=== PATIENT | male | born 1940 | race Hispanic/Latino ===

== ENCOUNTER 2016-11-22 09:06 | Day surgery (SDC) | payer MEDICARE ==
[2016-11-22 07:11] VITALS: BMI 25.0
[2016-11-22] MEDS ORDERED: Propofol 10 mg/ml Inj (20 ML) ONE (09:38)
[2016-11-22] MEDS ORDERED: Sodium Chloride 0.9% 1,000 ML IV SCH (10:15)
[2016-11-22 11:19] VITALS: BP 132/76; PULSE 68; RESP 16; TEMP 98.4; O2SAT 98
== END 2016-11-22 11:53 | disposition home or self-care (01) ==
LOC: ENDO 09:06
PROVIDERS: ATTEND Internal Medicine Gastroenterology
DX: K51.90 Ulcerative colitis, unspecified, without complications (principal); K64.1 Second degree hemorrhoids
CPT/HCPCS: 45331; 88305; J2704; J7040 ×2

== ENCOUNTER 2017-01-14 01:45 | Inpatient (IN) | payer MEDICARE ==
[2017-01-14 01:46] VITALS: BMI 25.3
--- NOTE | 2017-01-14 02:25 | ED PDOC ---
Arrival/HPI <Kary Higgins - Last Filed: 01/14/17 05:04> <Miky Morris - Last Filed: 01/14/17 05:35> - General Chief Complaint: GI Problem Time Seen by Provider: 01/14/17 01:57 - History of Present Illness Narrative History of Present Illness (Text): 01/14/17 02:24 76 year old M w/ Past medical history of UC, COPD, and Melenoma presents to the emergency depart complaining of LLQ and rectal pain. Pt is currently being treated w/ Remicade for UC flare [id number]. Rectal pain has been worsening and spread to pt's LLQ/low back this evening. Pt reports rectal spams w/ fecal incontinence. Last voluntary BM was 3-4days ago. Pt also reports urinary urgency , frequency, and hesitancy. Pt was prescribed Flomax by Dr. Mcrea last week for urinary retention and hesitancy. Pt sees Dr. Lu for his UC treatment. Last scope was sigmoidoscopy ~3mon ago. Pt reports 10lb weight loss over the last month. (Kary Higgins) Past Medical History - Provider Review Nursing Documentation Reviewed: Yes - Infectious Disease Hx of Infectious Diseases: None - Tetanus Immunization Tetanus Immunization: Unknown - Cardiac Hx Pacemaker: No - Pulmonary Hx Chronic Obstructive Pulmonary Disease (COPD): Yes - Neurological Hx Paralysis: No - HEENT Hx HEENT Disorder: (WEARS RX GLASSES) Hx Cataracts: Yes (RIGHT EYE) Hx Macular Degeneration: Yes (BOTH EYES) - Renal Hx Renal Disorder: No - Endocrine/Metabolic Hx Endocrine Disorders: No - Hematological/Oncological Hx Blood Transfusions: No Hx Blood Transfusion Reaction: No - Integumentary Hx Dermatological Disorder: Yes Hx Melanoma: Yes (SKIN CANCER ON THE NOSE 2013) - Musculoskeletal/Rheumatological Hx Musculoskeletal Disorders: Yes - Gastrointestinal Hx Vomiting: Yes Other/Comment: ulcerative colitis - Genitourinary/Gynecological Hx Genitourinary Disorders: Yes (URINARY RETENTION) Hx Hematuria: Yes Hx Prostate Problems: Yes (HX LESSER SURGERY DUE TO PROSTATIC ENLARGEMENT) - Psychiatric Hx Emotional Abuse: No Hx Physical Abuse: No Hx Substance Use: No - Surgical History Hx Musculoskeletal Surgery: Yes (ORTHOSCOPIC SURGERY RIGHT SHOULDER 2015) - Anesthesia Hx Anesthesia Reactions: Yes (NAUSEA/VOMITING) Hx Malignant Hyperthermia: No - Suicidal Assessment Feels Threatened In Home Enviroment: No <Kary Higgins - Last Filed: 01/14/17 05:04> Family/Social History Family/Social History: No Known Family HX Smoking Status: Never Smoked Hx Alcohol Use: No Hx Substance Use: No Hx Substance Use Treatment: No <Kary Higgins - Last Filed: 01/14/17 05:04> Allergies/Home Meds <Kary Higgins - Last Filed: 01/14/17 05:04> <Miky Morris - Last Filed: 01/14/17 05:35> Allergies/Adverse Reactions: Allergies No Known Allergies Allergy (Verified 05/01/16 12:30) Home Medications: Home Meds Medication Instructions Recorded Confirmed inFLIXimab [Remicade] 100 mg IV Q42D 12/12/14 11/22/16 Arformoterol [Brovana] 15 mcg IH BID 05/01/16 11/22/16 Budesonide 0.5 mg IH BID 05/01/16 11/22/16 Mesalamine [Lialda] 2.4 gm PO DAILY 05/01/16 11/22/16 Lactobacillus Rhamnosus GG 1 each PO DAILY 11/22/16 11/22/16 [Culturelle] Mesalamine [Canasa] 1,000 mg MT HS 11/22/16 11/22/16 Review of Systems - Physician Review All systems were reviewed & negative as marked: Yes - Review of Systems Constitutional: absent: Fevers Respiratory: absent: SOB <Kary Higgins - Last Filed: 01/14/17 05:04> Physical Exam Vital Signs Reviewed: Yes Temperature: Afebrile Blood Pressure: Normal Pulse: Tachycardic Respiratory Rate: Normal Appearance: Positive for: Non-Toxic, Comfortable Pain Distress: Moderate Mental Status: Positive for: Alert and Oriented X 3 - Systems Exam Head: Present: Atraumatic, Normocephalic Pupils: Present: PERRL Extroacular Muscles: Present: EOMI Conjunctiva: Present: Normal Mouth: Present: Moist Mucous Membranes Nose (External): Present: Atraumatic Neck: Present: Normal Range of Motion Respiratory/Chest: Present: Clear to Auscultation, Good Air Exchange. No: Respiratory Distress, Accessory Muscle Use Cardiovascular: Present: Regular Rate and Rhythm, Normal S1, S2. No: Murmurs Abdomen: Present: Tenderness (RLQ), Distention (minimal ), Normal Bowel Sounds, Guarding (LLQ). No: Peritoneal Signs, Hernias Rectal: Present: Hemorrhoids (external), Other (refused rectal exam) Genitourinary Male: Present: Normal External Genitalia Upper Extremity: Present: Normal Inspection Lower Extremity: Present: Normal Inspection Neurological: Present: GCS=15, Speech Normal Skin: Present: Warm, Dry, Normal Color Psychiatric: Present: Alert, Oriented x 3, Normal Affect, Normal Mood <Kary Higgins - Last Filed: 01/14/17 05:04> Medical Decision Making - Lab Interpretations I have reviewed the lab results: Yes Interpretation: Abnormal lab values <Kary Higgins - Last Filed: 01/14/17 05:04> - RAD Interpretation Sheep Rancher: Radiologist <Miky Morris - Last Filed: 01/14/17 05:35> ED Course and Treatment: 01/14/17 03:01 76 year old M w/ rectal and LLQ pain 2/2 UC flare - CBC - CMP - Urinalysis - CT A/P w/ IV contrast - Toradol - NS Bolus (Kary Higgins) Patient Seen With Resident: In agreement with resident note which contains more details about the patient. Patient was seen and evaluated with resident. Came up with plan and treatment together. 01/14/17 05:32 Case discussed with who is aware and agrees with the plan to observe patient at med/surg for ulcerative colitis. Accepts patient under hospitalist service. (Miky Morris) - Lab Interpretations Lab Results: 01/14/17 02:51 01/14/17 02:51 Lab Results 01/14/17 04:31: Urine Color Yellow, Urine Appearance Sl cloudy, Urine pH 6.0, Ur Specific [place] 1.010, Urine Protein Negative, Urine Glucose (UA) Negative, Urine Ketones Negative, Urine Blood Trace-intact H, Urine Nitrate Negative, Urine Bilirubin Negative, Urine Urobilinogen 0.2, Ur Leukocyte Esterase Moderate H, Urine RBC 1 - 3, Urine WBC 15 - 20, Ur Epithelial Cells 1 - 3, Urine Bacteria Few 01/14/17 02:51: Sodium 141, Potassium 4.4, Chloride 104, Carbon Dioxide 27, Anion Gap 14, BUN 20, Creatinine 0.8, Est GFR ( Amer) > 60, Est GFR (Non- Af Amer) > 60, Random Glucose 87, Calcium 9.4, Total Bilirubin 0.6, AST 30, ALT 41, Alkaline Phosphatase 67, Total Protein 7.5, Albumin 4.3, Globulin 3.3, Albumin/Globulin Ratio 1.3 01/14/17 02:51: WBC 4.4 L, RBC 4.20, Hgb 14.1, Hct 39.8 L, MCV 94.8, MCH 33.6, MCHC 35.4, RDW 13.2, Plt Count 183, MPV 8.3, Gran % 45.7 L, Lymph % (Auto) 42.8 H, [place] % (Auto) 11.1 H, Eos % (Auto) 0.2 L, Baso % (Auto) 0.2, Gran # 2.02, Lymph # 1.9, [place] # 0.5, Eos # 0.0, Baso # 0.01 - RAD Interpretation Narrative RAD Interpretations (Text): 01/14/17 05:05 CT A/P FINDINGS: Lower thorax: Basilar dependent pulmonary atelectasis is present. ABDOMEN: Liver: Unremarkable. No mass. Gallbladder and bile ducts: The patient is status post cholecystectomy. No ductal dilation. Pancreas: Unremarkable. No mass. No ductal dilation. Spleen: Unremarkable. No splenomegaly. Adrenals: Unremarkable. No mass. Kidneys and ureters: Simple renal cysts are noted measuring up to 2 cm on the left No hydronephrosis. Stomach and bowel: Unremarkable. No obstruction. No mucosal thickening. Appendix: No findings to suggest acute appendicitis. PELVIS: Bladder: Urinary bladder wall thickening and pericystic stranding compatible with cystitis. Multiple urinary bladder diverticuli are present Reproductive: Unremarkable as visualized. ABDOMEN and PELVIS: Intraperitoneal space: Unremarkable. No free air. No significant fluid collection. Bones/joints: Lumbar spine degenerative disc disease is noted. No acute fracture. No dislocation. Soft tissues: Unremarkable. Vasculature: Unremarkable. No abdominal aortic aneurysm. Lymph nodes: Unremarkable. No enlarged lymph nodes. IMPRESSION: Urinary bladder wall thickening and pericystic stranding compatible with cystitis. (Kary Higgins) Radiology Orders: 01/14/17 02:55 ABD & PELVIS IV CONTRAST ONLY [CT] Stat - Medication Orders Current Medication Orders: Ceftriaxone Sodium (Rocephin 1 Gram Ivpb) 1 gm in 100 mls @ 200 mls/hr IVPB STAT STA PRN Reason: Protocol Stop: 01/14/17 05:50 Discontinued Medications Hydrocortisone Sodium Succinate (Solu-Cortef) 100 mg IVP STAT STA Stop: 01/14/17 05:20 Sodium Chloride (Sodium Chloride 0.9%) 1,000 mls @ 999 mls/hr IV .Q1H1M STA Stop: 01/14/17 04:02 Last Admin: 01/14/17 03:20 Dose: 999 mls/hr Iohexol (Omnipaque 350 100 Ml) Confirm Administered Dose 350 mg .ROUTE .STK-MED ONE Stop: 01/14/17 04:10 Ketorolac Tromethamine (Toradol) 30 mg IVP STAT STA Stop: 01/14/17 03:03 Last Admin: 01/14/17 03:20 Dose: 30 mg Re-Assess: BRANDEN Pain Assessment Document 01/14/17 04:20 SS (Rec: 01/14/17 04:35 SS [id number]) Pain Reassessment Is this a pain reassessment? Yes Sleep Is patient sleeping during reassessment? No Presence of Pain Presence of Pain No - PA / ROCKET [employer]OR TESTER / Resident Statement MD/DO has reviewed & agrees with the documentation as recorded. MD/DO has examined the patient and agrees with the treatment plan. <Miky Morris - Last Filed: 01/14/17 05:35> Disposition/Present on Arrival - Present on Arrival History of DVT/PE: No History of Uncontrolled Diabetes: No Urinary Catheter: No History of Decub. Ulcer: No History Surgical Site Infection Following: None <Kary Higgins - Last Filed: 01/14/17 05:04> - Present on Arrival Any Indicators Present on Arrival: No History of DVT/PE: No History of Uncontrolled Diabetes: No Urinary Catheter: No History of Decub. Ulcer: No History Surgical Site Infection Following: None - Disposition Have Diagnosis and Disposition been Completed?: Yes Disposition Time: 05:25 Patient Plan: Observation <Miky Morris - Last Filed: 01/14/17 05:35> - Disposition Diagnosis: Ulcerative colitis, Abdominal pain, Rectal pain, Cystitis Disposition: HOSPITALIZED Patient Problems: Current Active Problems Problem Status Onset Abdominal pain Acute Cystitis Acute Rectal pain Acute Ulcerative colitis Acute Condition: STABLE
[2017-01-14] MEDS ORDERED: Sodium Chloride 0.9% 1,000 ML IV STA (03:02)
[2017-01-14 03:05] LABS: ADD MANUAL DIFF? NO
[2017-01-14 03:12] LABS: BASO # 0.01 K/mm3 (0.0-2.0); BASO % 0.2 % (0.0-3.0); EOS % 0.2 % (1.5-5.0); GRAN # 2.02 (1.4-6.5); GRAN % 45.7 % (50.0-68.0); HEMATOCRIT 39.8 % (42.0-52.0); LYMPH # 1.9 (1.2-3.4); LYMPH % 42.8 % (22.0-35.0); MEAN CELL VOLUME 94.8 fL (80.0-105.0); MEAN CORPUSCULAR HEMOGLOBIN 33.6 pg (25.0-35.0); MEAN CORPUSCULAR HGB CONC 35.4 g/dl (31.0-37.0); MEAN PLATELET VOLUME 8.3 fl (7.0-11.0); MONO # 0.5 (0.1-0.6); MONO % 11.1 % (1.0-6.0); PLATELET COUNT 183 10^3/uL (120.0-450.0); RED CELL DISTRIBUTION WIDTH 13.2 % (11.5-14.5); WHITE BLOOD COUNT 4.4 10^3/ul (4.5-11.0)
[2017-01-14 03:29] LABS: ALB/GLOB RATIO 1.3 (1.1-1.8); ALKALINE PHOSPHATASE 67 U/L (38-133); ALT/SGPT 41 U/L (7-56); AST/SGOT 30 U/L (15-59); BILIRUBIN,TOTAL 0.6 mg/dL (0.2-1.3); BLOOD UREA NITROGEN 20 mg/dL (7-21); CALCIUM 9.4 mg/dL (8.4-10.5); CARBON DIOXIDE 27 mmol/L (21-33); CHLORIDE 104 mmol/L (95-110); GFR AFRICAN-AMERICAN > 60; GLUCOSE,RANDOM 87 mg/dL (70-110); POTASSIUM 4.4 mmol/L (3.6-5.0); SODIUM 141 mmol/L (132-148); TOTAL PROTEIN 7.5 g/dL (5.8-8.3)
[2017-01-14] MEDS ORDERED: Iohexol 350 MG/100 ML VIAL ONE (04:09)
[2017-01-14 04:39] LABS: URINE BILIRUBIN NEGATIVE (NEGATIVE); URINE BLOOD TRACE-INTACT (NEGATIVE); URINE GLUCOSE (UA) NEGATIVE (NEGATIVE); URINE KETONE NEGATIVE (NEGATIVE); URINE LEUKOCYTE ESTERASE MODERATE Leu/uL (NEGATIVE); URINE PROTEIN NEGATIVE mg/dL (<30 mg/dL); URINE UROBILINOGEN 0.2 E.U./dL (<1 E.U./dL)
[2017-01-14 04:51] LABS: URINE APPEARANCE SL CLOUDY (CLEAR); URINE COLOR YELLOW (YELLOW)
[2017-01-14 04:59] LABS: URINE BACTERIA FEW (NEG); URINE WBC 15 - 20 /hpf (0-6)
[2017-01-14] MEDS ORDERED: cefTRIAXone 1 gm 1 GM/100 ML BAG IVPB STA (05:21)
--- NOTE | 2017-01-14 05:44 | CP.PCM.HP ---
<Buddy Alvarez - Last Filed: 01/14/17 05:40> History of Present Illness - History of Present Illness History of Present Illness: This patient is a 76yo M w/ a PMHx of UC on Remicade (GI Dr. Lu) and COPD who is presenting to the ED w/ a 1mo history of worsening UC symptoms (tenesmus , fecal incontinence, and rectal pain) as well as bladder spasms. He states that he feels like his medication is not working. He was recently started on flomax for urinary retention which has since helped retention symptoms, but now has bladder like spasms for the past week. He denies any fevers/chills, CUMMINS, CP, SOB, abdominal pain, N/V/D, blood in stools, lower extremity pain/swelling, new rashes. +Dysuria/freq/spasms. Last sigmoidoscopy was less than 3 months ago and was unremarkable. Medications: Remicade every 6 weeks, Brovana, Lactobacillus Allergies: None Fam Hx: Noncontributory Social: former smoker; quit 35 years ago; was 1pack per day for 20 years before ; denies EtOH or illicit drug use Surg: Gallbladder removal ~[address] Scan of abdomen/pelvis done; prelim read by ER doctor looks like cystitis; UA postive with LE; given one dose of ceftriaxone in the ED. Also Given 100mg of hydrocortisone. Consult placed to Dr. Lu, the patients GI doctor. Present on Admission - Present on Admission Any Indicators Present on Admission: No History of DVT/PE: No History of Uncontrolled Diabetes: No Urinary Catheter: No Decubitus Ulcer Present: No Review of Systems - Review of Systems All systems: reviewed and no additional remarkable complaints except Past Patient History - Infectious Disease Hx of Infectious Diseases: None - Tetanus Immunizations Tetanus Immunization: Unknown - Past Medical History & Family History Past Medical History?: No - Past Social History Smoking Status: Never Smoked - CARDIAC Hx Pacemaker: No - PULMONARY Hx Chronic Obstructive Pulmonary Disease (COPD): Yes - NEUROLOGICAL Hx Paralysis: No - HEENT Hx HEENT Problems: (WEARS RX GLASSES) Hx Cataracts: Yes (RIGHT EYE) Hx Macular Degeneration: Yes (BOTH EYES) - RENAL Hx Chronic Kidney Disease: No - ENDOCRINE/METABOLIC Hx Endocrine Disorders: No - HEMATOLOGICAL/ONCOLOGICAL Hx Blood Transfusions: No Hx Blood Transfusion Reaction: No - INTEGUMENTARY Hx Dermatological Problems: Yes Hx Melanoma: Yes (SKIN CANCER ON THE NOSE 2013) - MUSCULOSKELETAL/RHEUMATOLOGICAL Hx Musculoskeletal Disorders: Yes - GASTROINTESTINAL Hx Vomiting: Yes Other/Comment: ulcerative colitis - GENITOURINARY/GYNECOLOGICAL Hx Genitourinary Disorders: Yes (URINARY RETENTION) Hx Hematuria: Yes Hx Prostate Problems: Yes (HX LESSER SURGERY DUE TO PROSTATIC ENLARGEMENT) - PSYCHIATRIC Hx Emotional Abuse: No Hx Physical Abuse: No Hx Substance Use: No - SURGICAL HISTORY Hx Musculoskeletal Surgery: Yes (ORTHOSCOPIC SURGERY RIGHT SHOULDER 2015) - ANESTHESIA Hx Anesthesia Reactions: Yes (NAUSEA/VOMITING) Hx Malignant Hyperthermia: No Meds Allergies/Adverse Reactions: Allergies Allergy/AdvReac Type Severity Reaction Status Date / Time No Known Allergies Allergy Verified 05/01/16 12:30 Physical Exam - Constitutional Appears: Well, Non-toxic - Head Exam Head Exam: ATRAUMATIC - Eye Exam Eye Exam: EOMI, Scleral icterus - ENT Exam ENT Exam: Mucous Membranes Moist - Neck Exam Neck exam: Positive for: Full Rom - Respiratory Exam Respiratory Exam: Clear to Auscultation Bilateral, NORMAL BREATHING PATTERN. absent: Rales, Rhonchi, Wheezes - Cardiovascular Exam Cardiovascular Exam: REGULAR RHYTHM, +S1 - GI/Abdominal Exam GI & Abdominal Exam: Normal Bowel Sounds, Soft. absent: Tenderness - Rectal Exam Additional comments: Patient did not allow full rectal exam due to pain; rectum red and inflamed with external hemorrhoid present - Extremities Exam Extremities exam: Positive for: full ROM. Negative for: calf tenderness - Back Exam Back exam: NORMAL INSPECTION. absent: CVA tenderness (L), CVA tenderness (R) - Neurological Exam Neurological exam: Alert, CN II-XII Intact, Normal Gait Results - Vital Signs Recent Vital Signs: Last Vital Signs Temp 97.7 F 01/14/17 01:49 Pulse 70 01/14/17 04:50 Resp 16 01/14/17 04:50 BP 110/65 01/14/17 04:50 Pulse Ox 98 01/14/17 04:50 - Labs Result Diagrams: 01/14/17 02:51 01/14/17 02:51 Labs: Laboratory Results - last 24 hr 01/14/17 01/14/17 01/14/17 02:51 02:51 04:31 WBC 4.4 L RBC 4.20 Hgb 14.1 Hct 39.8 L MCV 94.8 MCH 33.6 MCHC 35.4 RDW 13.2 Plt Count 183 MPV 8.3 Gran % 45.7 L Lymph % (Auto) 42.8 H [place] % (Auto) 11.1 H Eos % (Auto) 0.2 L Baso % (Auto) 0.2 Gran # 2.02 Lymph # 1.9 [place] # 0.5 Eos # 0.0 Baso # 0.01 Sodium 141 Potassium 4.4 Chloride 104 Carbon Dioxide 27 Anion Gap 14 BUN 20 Creatinine 0.8 Est GFR ( Amer) > 60 Est GFR (Non-Af Amer) > 60 Random Glucose 87 Calcium 9.4 Total Bilirubin 0.6 AST 30 ALT 41 Alkaline Phosphatase 67 Total Protein 7.5 Albumin 4.3 Globulin 3.3 Albumin/Globulin Ratio 1.3 Urine Color Yellow Urine Appearance Sl cloudy Urine pH 6.0 Ur Specific [place] 1.010 Urine Protein Negative Urine Glucose (UA) Negative Urine Ketones Negative Urine Blood Trace-intact H Urine Nitrate Negative Urine Bilirubin Negative Urine Urobilinogen 0.2 Ur Leukocyte Esterase Moderate H Urine RBC 1 - 3 Urine WBC 15 - 20 Ur Epithelial Cells 1 - 3 Urine Bacteria Few Assessment & Plan - Assessment and Plan (Free Text) Assessment: 76yo M admitted for UC flare and UTI UC Flare -GI Consult; Dr. Lu -Hydrocortisone given in ED; will defer to GI for continued management -patient receives remicade [id number] only for UC treatment UTI -+LE and dysuria; given one dose of ceftriaxone -Urine Culture pending; no history of drug resistant bugs on UC in past -blood cultures pending; f/u -Abdomen/Pelvis CT w/ contrast showed cystitis; pending final read COPD -c/w home meds Prophlyaxis -Pepcid -Lovenox SC -Heart Healthy Diet Case Discussed and seen with Dr. Purdy Decision To Admit - Pt Status Changed To: Hospital Disposition Of: Observation - . Bed Request Type: Med/Surg Admitting Physician: Valentin Purdy <Valentin Purdy - Last Filed: 01/27/17 19:27> Results - Vital Signs Recent Vital Signs: Last Vital Signs Temp 98.2 F 01/16/17 16:00 Pulse 70 01/16/17 16:00 Resp 20 06/08/17 16:00 BP 125/69 01/16/17 16:00 Pulse Ox 96 01/16/17 16:00 - Labs Result Diagrams: 01/16/17 05:00 01/16/17 05:00 Attending/Attestation - Attestation I have personally seen and examined this patient.: Yes I have fully participated in the care of the patient.: Yes I have reviewed all pertinent clinical information: Yes
--- NOTE | 2017-01-14 07:55 | CP.PCM.CON ---
Addendum entered and electronically signed by Anastasia Contreras DO 01/14/17 11:20: Physical exam: no organomegaly noted Original Note: <MoiseshallieAnastasia - Last Filed: 01/14/17 10:27> History of Present Illness - History of Present Illness History of Present Illness: Consult note for GI 76 year old male with past medical history of UC (currently on Remicade, diagnosed over 20 years ago) and COPD presented to hospital for tenesum, bowel and bladder incontinence and rectal pain. In ED, patient was found to have UTI. Patient sees Dr. Lu on an outpatient basis. Patient states that for about 3 months, he has been experiencing worsening rectal pain and tenesmus. For past 1.5 weeks patient has been experiencing bowel and bladder incontinence and severe rectal pain. He complains of episodes of diarrhea and then constipation. Patient denies having any recent illness or recent travels. Patient denies having any recent weight changes, any fevers or chills. After speaking with Dr. Lu it is found that patient was started on Remicade about 2 years prior at [facility]. Before that, patient was receiving steroid treatment which was not working. Patient was seen by Dr. Lu in clinic about 6 weeks ago. At that time, he was prescribed 1 month of predniosne which he finished 2 weeks ago. Patient is also seeing urologist for urinary retention. He was recently started on flomax. Last sigmoidoscopy on 11/2016 showed mild chronic inflammation and negative for HSV and CMV. Last dose of Remicade was about 5 weeks ago. 12 point ROS are negative except for stated above. PMhx: stated above Sx: cholecystectomy about 20 years ago, cataract sx, knee sx Social: former smoker (quit 30 years ago), No ETOH or drug use Medication: Remicade q 6 weeks, Brovana, lactobacillus FHx: lung cancer mom Past Patient History - Infectious Disease Hx of Infectious Diseases: None - Tetanus Immunizations Tetanus Immunization: Unknown - Past Medical History & Family History Past Medical History?: No - Past Social History Smoking Status: Never Smoked Chewing Tobacco Use: No Cigar Use: No Alcohol: None Drugs: Denies Home Situation {Lives}: With Family - CARDIAC Hx Pacemaker: No - PULMONARY Hx Chronic Obstructive Pulmonary Disease (COPD): Yes - NEUROLOGICAL Hx Paralysis: No - HEENT Hx HEENT Problems: (WEARS RX GLASSES) Hx Cataracts: Yes (RIGHT EYE) Hx Macular Degeneration: Yes (BOTH EYES) - RENAL Hx Chronic Kidney Disease: No - ENDOCRINE/METABOLIC Hx Endocrine Disorders: No - HEMATOLOGICAL/ONCOLOGICAL Hx Blood Transfusions: No Hx Blood Transfusion Reaction: No - INTEGUMENTARY Hx Dermatological Problems: Yes Hx Melanoma: Yes (SKIN CANCER ON THE NOSE 2013) - MUSCULOSKELETAL/RHEUMATOLOGICAL Hx Musculoskeletal Disorders: Yes - GASTROINTESTINAL Hx Vomiting: Yes Other/Comment: ulcerative colitis - GENITOURINARY/GYNECOLOGICAL Hx Genitourinary Disorders: Yes (URINARY RETENTION) Hx Hematuria: Yes Hx Prostate Problems: Yes (HX LESSER SURGERY DUE TO PROSTATIC ENLARGEMENT) - PSYCHIATRIC Hx Emotional Abuse: No Hx Physical Abuse: No Hx Substance Use: No - SURGICAL HISTORY Hx Musculoskeletal Surgery: Yes (ORTHOSCOPIC SURGERY RIGHT SHOULDER 2015) - ANESTHESIA Hx Anesthesia Reactions: Yes (NAUSEA/VOMITING) Hx Malignant Hyperthermia: No Meds Allergies/Adverse Reactions: Allergies Allergy/AdvReac Type Severity Reaction Status Date / Time No Known Allergies Allergy Verified 05/01/16 12:30 - Medications Medications: Current Medications Arformoterol Tartrate (Brovana) 15 mcg IH BID [facility] Budesonide (Pulmicort Respules) 0.5 mg IH [id number] [facility] Enoxaparin Sodium (Lovenox) 40 mg SC DAILY [facility] PRN Reason: Protocol Famotidine (Pepcid) 20 mg PO DAILY [facility] Non-Formulary Medication (Lactobacillus Rhamnosus Gg [Culturelle]) 1 each PO DAILY [facility] Physical Exam - Constitutional Appears: Non-toxic, No Acute Distress - Head Exam Head Exam: ATRAUMATIC - Eye Exam Eye Exam: EOMI - ENT Exam ENT Exam: Mucous Membranes Moist - Respiratory Exam Respiratory Exam: Clear to Auscultation Bilateral, NORMAL BREATHING PATTERN. absent: Accessory Muscle Use, Rales, Rhonchi, Wheezes, Respiratory Distress - Cardiovascular Exam Cardiovascular Exam: REGULAR RHYTHM, +S1, +S2. absent: Diastolic murmur, Gallop , Rubs, Systolic Murmur - GI/Abdominal Exam GI & Abdominal Exam: Normal Bowel Sounds, Soft. absent: Distended, Firm, Guarding, Rigid, Tenderness - Extremities Exam Extremities exam: Negative for: calf tenderness, pedal edema, tenderness - Neurological Exam Neurological exam: Alert, Oriented x3 - Psychiatric Exam Psychiatric exam: Normal Affect, Normal Mood - Skin Skin Exam: Dry, Intact, Normal Color, Warm Results - Vital Signs Recent Vital Signs: Last Vital Signs Temp 97.7 F 01/14/17 01:49 Pulse 70 01/14/17 04:50 Resp 16 01/14/17 04:50 BP 110/65 01/14/17 04:50 Pulse Ox 98 01/14/17 04:50 - Labs Result Diagrams: 01/14/17 02:51 01/14/17 02:51 Assessment & Plan - Assessment and Plan (Free Text) Assessment: 76 year old male with past medical history of UC diagnosed 20 yrs ago currently on Remicade and COPD is admitted for UTI and diarrhea and rectal pain. Rectal pain likely due to UTI. Recent sigmoidoscopy showed only chronic mild inflammation of rectum and sigmoid. UC - After speaking with Dr. Lu, will continue Remicade. Next dose scheduled for Friday - Rowasa enema BID. Plan for Canasa but pharmacy does not carry it. - Will check fecal calprotectin - Pt currently undergoing authorization for uceris out patient. - Hold off on steroids as pt recently completed prednisone Diarrhea - Will check stool cultures, stool ova and parasites and c diff antigen and Ab - Pt started on flagyl UTI - Continue Abx per ID team. - Urine and blood cultures pending Case discussed with attendingm Jun Dumont - Date & Time Date: 01/14/17 Time: 07:57 <Neil Barahona - Last Filed: 01/14/17 13:23> Meds - Medications Medications: Current Medications Arformoterol Tartrate (Brovana) 15 mcg IH BID [facility] Budesonide (Pulmicort Respules) 0.5 mg IH [id number] [facility] Enoxaparin Sodium (Lovenox) 40 mg SC DAILY [facility] PRN Reason: Protocol Last Admin: 01/14/17 09:53 Dose: 40 mg Famotidine (Pepcid) 20 mg PO DAILY [facility] Last Admin: 01/14/17 09:53 Dose: 20 mg Ceftriaxone Sodium (Rocephin 1 Gram Ivpb) 1 gm in 100 mls @ 100 mls/hr IVPB DAILY [facility] PRN Reason: Protocol Last Admin: 01/14/17 10:03 Dose: 100 mls/hr Metronidazole (Flagyl) 500 mg in 100 mls @ 100 mls/hr IVPB Q8 [facility] PRN Reason: Protocol Mesalamine (Rowasa Enema) 4 gm RC BID [facility] Non-Formulary Medication (Lactobacillus Rhamnosus Gg [Culturelle]) 1 each PO DAILY [facility] Last Admin: 01/14/17 12:15 Dose: Not Given Results - Vital Signs Recent Vital Signs: Last Vital Signs Temp 97.8 F 01/14/17 11:05 Pulse 81 01/14/17 11:05 Resp 18 01/14/17 11:05 BP 121/69 01/14/17 11:05 Pulse Ox 98 01/14/17 04:50 - Labs Result Diagrams: 01/14/17 02:51 01/14/17 02:51 Labs: Laboratory Results - last 24 hr 01/14/17 08:05 ESR 24 H Attending/Attestation - Attestation I have personally seen and examined this patient.: Yes I have fully participated in the care of the patient.: Yes I have reviewed all pertinent clinical information: Yes Notes (Text): Patient seen and examined with GI fellow/medical/surgery registered nurse. Agree with note as documented above with the following additions/exceptions. 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 He follows with Dr. Lu as an outpatient, who performed sigmoidoscopy 11/2016 showing mild proctitis. The patient has been complaining of rectal pain, tenesmus and irregular bowel habit with occasional loose/non bloody stool for several months. He was given prolonged prednisone taper over the past 1 month without significant improvement. He also complains of intermittent urinary retention and is found to have positive UA. Continue antibiotics for UTI as per primary medical service. Obtain stool studies, r/o infectious process including cdiff. Check fecal calprotectin level. Canasa suppository not on formulary here, so will start rowasa enema. His next infliximab infusion is scheduled for this Friday. Diet as tolerated. Will make recommendations pending clinical course. 01/14/17 13:23
[2017-01-14] MEDS ORDERED: Budesonide 0.5 mg/2 ml Inhal Susp UD IH SCH (08:00)
--- NOTE | 2017-01-14 08:36 | CT ---
PROCEDURE: CT Abdomen and Pelvis with contrast HISTORY: Abd pain, UC flare COMPARISON: 04/04/2016 TECHNIQUE: Contrast dose: 100 mL Omnipaque 350 Radiation dose: Total exam DLP = 677.94 mGy-cm. This CT exam was performed using one or more of the following dose reduction techniques: Automated exposure control, adjustment of the mA and/or kV according to patient size, and/or use of iterative reconstruction technique. FINDINGS: LOWER THORAX: There is bibasilar subsegmental atelectasis. LIVER: The liver is normal in size and there is homogeneous enhancement without focal mass or intrahepatic biliary ductal dilatation. GALLBLADDER AND BILE DUCTS: Surgically absent. PANCREAS: The pancreas is normal in size and there is homogeneous enhancement without ductal dilatation or focal mass. SPLEEN: The spleen is normal in size and there is homogeneous enhancement. ADRENALS: Both adrenal glands are normal in size without discrete nodule. KIDNEYS AND URETERS: Both kidneys are normal in size and there is homogeneous enhancement without hydronephrosis or focal mass. There a few simple cysts in both kidneys, larger in the left kidney. VASCULATURE: There are atherosclerotic aortoiliac calcifications. No aortic aneurysm. BOWEL: The small bowel loops are normal in caliber. The colon is unremarkable. APPENDIX: Normal appendix. PERITONEUM: No free fluid or free intraperitoneal air. LYMPH NODES: No pathologic lymphadenopathy. BLADDER: There is redemonstration of mild circumferential mural thickening of the urinary bladder wall with intramural diverticula, the largest along the posterior wall. There is also perivesical fat stranding. REPRODUCTIVE: Unremarkable. BONES: No acute fracture. There is severe degenerative disc disease at L5-S1. OTHER FINDINGS: None. IMPRESSION: No evidence of enteritis, colitis or bowel obstruction. Redemonstration of urinary bladder wall thickening with intramural diverticula and perivesical fat stranding which may represent acute/ chronic cystitis. Please correlate with urine analysis. A preliminary report was provided by [facility] (formerly [facility]).
[2017-01-14] MEDS: Enoxaparin 40 mg Syringe SC SCH (09:53)
[2017-01-14] MEDS: cefTRIAXone 1 gm 1 GM/100 ML BAG IVPB SCH (10:03)
[2017-01-14] MEDS: LACTOBACILLUS RHAMNOSUS GG PO SCH (12:15)
[2017-01-14] MEDS: metroNIDAZOLE IV 500 mg/100 ml 500 MG/100 ML BAG IVPB SCH ×2 (14:13→22:08)
[2017-01-14] MEDS: Arformoterol 15 mcg/2 ml Inh Sol IH SCH (20:48)
[2017-01-14] MEDS: Budesonide 0.5 mg/2 ml Inhal Susp UD IH SCH (21:00)
[2017-01-15] MEDS ORDERED: Lidocaine 2% Jelly (Uro-Jet) TOP PRN (00:16)
[2017-01-15] MEDS: metroNIDAZOLE IV 500 mg/100 ml 500 MG/100 ML BAG IVPB SCH ×3 (05:43→21:40)
[2017-01-15 07:06] LABS: ADD MANUAL DIFF? NO
[2017-01-15 07:16] LABS: BASO # 0.02 K/mm3 (0.0-2.0); BASO % 0.4 % (0.0-3.0); EOS % 0.2 % (1.5-5.0); GRAN % 33.7 % (50.0-68.0); HEMATOCRIT 36.9 % (42.0-52.0); LYMPH # 2.4 (1.2-3.4); LYMPH % 53.8 % (22.0-35.0); MEAN CELL VOLUME 96.1 fL (80.0-105.0); MEAN CORPUSCULAR HEMOGLOBIN 32.6 pg (25.0-35.0); MEAN CORPUSCULAR HGB CONC 33.9 g/dl (31.0-37.0); MEAN PLATELET VOLUME 8.5 fl (7.0-11.0); MONO # 0.5 (0.1-0.6); MONO % 11.9 % (1.0-6.0); PLATELET COUNT 170 10^3/uL (120.0-450.0); RED CELL DISTRIBUTION WIDTH 13.6 % (11.5-14.5); WHITE BLOOD COUNT 4.5 10^3/ul (4.5-11.0)
[2017-01-15] MEDS: Budesonide 0.5 mg/2 ml Inhal Susp UD IH SCH ×2 (07:47→22:00)
[2017-01-15] MEDS: Arformoterol 15 mcg/2 ml Inh Sol IH SCH ×2 (07:47→22:00)
[2017-01-15 07:53] LABS: ALB/GLOB RATIO 1.3 (1.1-1.8); ALKALINE PHOSPHATASE 50 U/L (38-133); ALT/SGPT 30 U/L (7-56); AST/SGOT 28 U/L (15-59); BILIRUBIN,TOTAL 0.4 mg/dL (0.2-1.3); BLOOD UREA NITROGEN 17 mg/dL (7-21); CALCIUM 8.9 mg/dL (8.4-10.5); CARBON DIOXIDE 26 mmol/L (21-33); CHLORIDE 108 mmol/L (98-107); GFR AFRICAN-AMERICAN > 60; GLUCOSE,RANDOM 83 mg/dL (70-110); SODIUM 142 mmol/L (132-148); TOTAL PROTEIN 6.6 g/dL (5.8-8.3)
[2017-01-15 08:00] LABS: POTASSIUM 4.1 mmol/L (3.6-5.0)
[2017-01-15] MEDS: cefTRIAXone 1 gm 1 GM/100 ML BAG IVPB SCH (09:57)
[2017-01-15] MEDS: Enoxaparin 40 mg Syringe SC SCH (09:57)
[2017-01-15] MEDS: LACTOBACILLUS RHAMNOSUS GG PO SCH (09:58)
[2017-01-15] MEDS: Hemorrohoidal Ointment (2 oz) TOP SCH ×4 (09:58→21:41)
--- NOTE | 2017-01-15 10:02 | CP.PCM.PN ---
<Anastasia Contreras - Last Filed: 01/15/17 10:38> Subjective - Date & Time of Evaluation Date of Evaluation: 01/15/17 Time of Evaluation: 09:57 - Subjective Subjective: GI progress note Patient is seen and examined at bedside. Patient received Rowasa enema yesterday but was unable to hold it in. He refused the second dose. Today, patient continues to c/o of diarrhea, rectal pain and tenesmus. This morning, patient had one episode of bowel incontinence. Patient is tolerating diet. He denies having any abdominal pain. 12 point ROS are negative except for the above mentioned. Objective - Vital Signs/Intake and Output Vital Signs (last 24 hours): Temp Pulse Resp BP Pulse Ox 98.1 F 73 20 118/66 97 01/15/17 07:59 01/15/17 07:59 01/15/17 07:59 01/15/17 07:59 01/15/17 07:59 Intake and Output: 01/15/17 01/15/17 06:59 18:59 Intake Total 440 Output Total 100 Balance 340 - Medications Medications: Current Medications Arformoterol Tartrate (Brovana) 15 mcg IH BID [facility] Last Admin: 01/15/17 07:47 Dose: 15 mcg Budesonide (Pulmicort Respules) 0.5 mg IH [id number] [facility] Last Admin: 01/15/17 07:47 Dose: 0.5 mg Enoxaparin Sodium (Lovenox) 40 mg SC DAILY [facility] PRN Reason: Protocol Last Admin: 01/14/17 09:53 Dose: 40 mg Famotidine (Pepcid) 20 mg PO DAILY [facility] Last Admin: 01/14/17 09:53 Dose: 20 mg Hydrocortisone (Anusol-Hc) 25 mg RC BID [facility] Ceftriaxone Sodium (Rocephin 1 Gram Ivpb) 1 gm in 100 mls @ 100 mls/hr IVPB DAILY [facility] PRN Reason: Protocol Last Admin: 01/14/17 10:03 Dose: 100 mls/hr Metronidazole (Flagyl) 500 mg in 100 mls @ 100 mls/hr IVPB Q8 [facility] PRN Reason: Protocol Last Admin: 01/15/17 05:43 Dose: 100 mls/hr Ketorolac Tromethamine (Toradol) 15 mg IVP Q4 PRN PRN Reason: Pain, moderate (4-7) Lidocaine HCl (Xylocaine 2% (Uro-Jet)) 1 ea TOP QID PRN PRN Reason: RECTAL PAIN Mesalamine (Rowasa Enema) 4 gm RC BID [facility] Last Admin: 01/14/17 18:46 Dose: Not Given Multi-Ingredient Ointment (Prep-Hem) 1 ea TOP QID [facility] Non-Formulary Medication (Lactobacillus Rhamnosus Gg [Culturelle]) 1 each PO DAILY [facility] Last Admin: 01/14/17 12:15 Dose: Not Given Tamsulosin HCl (Flomax) 0.4 mg PO DAILY [facility] - Labs Labs: 01/15/17 05:00 01/15/17 05:00 - Constitutional Appears: Non-toxic, No Acute Distress - Head Exam Head Exam: ATRAUMATIC - Eye Exam Eye Exam: EOMI - ENT Exam ENT Exam: Mucous Membranes Moist - Respiratory Exam Respiratory Exam: Clear to Ausculation Bilateral. absent: Accessory Muscle Use , Rales, Rhonchi, Wheezes, Respiratory Distress - Cardiovascular Exam Cardiovascular Exam: REGULAR RHYTHM, +S1, +S2. absent: Gallop, Rubs, Murmur - GI/Abdominal Exam GI & Abdominal Exam: Soft, Normal Bowel Sounds. absent: Distended, Firm, Guarding, Rigid, Tenderness, Organomegaly - Rectal Exam Rectal Exam: Hemorrhoids (external ) Additional comments: painful rectal exam - Neurological Exam Neurological Exam: Alert, Awake, Oriented x3 - Psychiatric Exam Psychiatric exam: Normal Affect, Normal Mood - Skin Skin Exam: Dry, Intact, Normal Color, Warm Assessment and Plan - Assessment and Plan (Free Text) Assessment: 76 year old male with past medical history of UC diagnosed 20 yrs ago currently on Remicade and COPD is admitted for UTI and diarrhea and rectal pain. Rectal pain likely due to UTI. Recent sigmoidoscopy showed only chronic mild inflammation of rectum and sigmoid, negative HSV and CMV. UC - On Remicade. Next dose due Friday - Patient refused Rowasa due to rectal pain. Will treat for hemorrhoids - Counselled on on compliance to Rowasa - fecal calprotectin pending - Pt currently undergoing authorization for uceris out patient. - Sent anti-infliximab antibodies (anti-remicade Ab) - MRI of abd/pelvis with contrast External hemorrhoid - Pt started on anusol and proctosol. Will continue lidocain. Diarrhea - Stool cultures, stool ova and parasites and c diff antigen and Ab pending - Continue flagyl prophylactically UTI - Continue Abx per ID team. - Urine and blood cultures pending Case discussed with attending Evan Dumont <Raul Gordon MD - Last Filed: 01/15/17 14:08> Objective - Vital Signs/Intake and Output Vital Signs (last 24 hours): Temp Pulse Resp BP Pulse Ox 98.1 F 73 20 118/66 97 01/15/17 07:59 01/15/17 07:59 01/15/17 07:59 01/15/17 07:59 01/15/17 07:59 Intake and Output: 01/15/17 01/15/17 06:59 18:59 Intake Total 440 Output Total 100 Balance 340 - Medications Medications: Current Medications Arformoterol Tartrate (Brovana) 15 mcg IH BID [facility] Last Admin: 01/15/17 07:47 Dose: 15 mcg Budesonide (Pulmicort Respules) 0.5 mg IH [id number] [facility] Last Admin: 01/15/17 07:47 Dose: 0.5 mg Enoxaparin Sodium (Lovenox) 40 mg SC DAILY [facility] PRN Reason: Protocol Last Admin: 01/15/17 09:57 Dose: 40 mg Famotidine (Pepcid) 20 mg PO DAILY [facility] Last Admin: 01/15/17 09:57 Dose: 20 mg Hydrocortisone (Anusol-Hc) 25 mg RC BID [facility] Last Admin: 01/15/17 10:05 Dose: Not Given Hydrocortisone (Anusol-Hc) 0 gm DE BID [facility] Last Admin: 01/15/17 12:44 Dose: Not Given Ceftriaxone Sodium (Rocephin 1 Gram Ivpb) 1 gm in 100 mls @ 100 mls/hr IVPB DAILY [facility] PRN Reason: Protocol Last Admin: 01/15/17 09:57 Dose: 100 mls/hr Metronidazole (Flagyl) 500 mg in 100 mls @ 100 mls/hr IVPB Q8 [facility] PRN Reason: Protocol Last Admin: 01/15/17 13:34 Dose: 100 mls/hr Ketorolac Tromethamine (Toradol) 15 mg IVP Q4 PRN PRN Reason: Pain, moderate (4-7) Lidocaine HCl (Xylocaine 2% (Uro-Jet)) 1 ea TOP QID PRN PRN Reason: RECTAL PAIN Mesalamine (Rowasa Enema) 4 gm RC BID [facility] Last Admin: 01/15/17 09:58 Dose: Not Given Multi-Ingredient Ointment (Prep-Hem) 1 ea TOP QID [facility] Last Admin: 01/15/17 13:34 Dose: 1 ea Non-Formulary Medication (Lactobacillus Rhamnosus Gg [Culturelle]) 1 each PO DAILY [facility] Last Admin: 01/15/17 09:58 Dose: Not Given Tamsulosin HCl (Flomax) 0.4 mg PO DAILY [facility] Last Admin: 01/15/17 09:57 Dose: 0.4 mg - Labs Labs: 01/15/17 05:00 01/15/17 05:00 Attending/Attestation - Attestation I have personally seen and examined this patient.: Yes I have fully participated in the care of the patient.: Yes I have reviewed all pertinent clinical information, including history, physical exam and plan: Yes Notes (Text): 01/15/17 14:06 Patient seen with GI fellow and resident on rounds this am. Agree with assessment and plan. This is a 76 year old male with past medical history of UC diagnosed 20 yrs ago currently on Remicade and COPD is admitted for UTI and diarrhea and rectal pain. Rectal pain likely due to UTI. Recent sigmoidoscopy showed only chronic mild inflammation of rectum and sigmoid, negative HSV and CMV. Unable to tolerate rowasa enema. Will give proctosol cream for rectal LA for hemorrhoids and try canasa suppositories. Patient can bring it from home. Will get MRI abdomen with IV contrast. Stool infectious work up pending. Continue antibiotics as indicated.
[2017-01-15] MEDS ORDERED: Gadodiamide 287 MG/ML VIAL (15ML) IV ONE (11:48)
[2017-01-15] MEDS: Hydrocortisone 2.5% Rectal Cream(30 gm) PR SCH ×2 (12:44→17:50)
--- NOTE | 2017-01-15 15:43 | CP.PCM.PN ---
<Claritza Purdy - Last Filed: 01/15/17 15:39> Subjective - Date & Time of Evaluation Date of Evaluation: 01/15/17 Time of Evaluation: 08:00 - Subjective Subjective: Pt was seen and examined at bedside. Pt was slightly upset regarding his bowel and bladder incontinence episode this morning. Pt is tolerating PO diet and denies abdominal pain at this time. Pt was unable to hold in his enema yesterday due to hemmorhoids. Pt denied fever, chills, chest pains, sob, abdominal pains, n/v/d/c. Objective - Vital Signs/Intake and Output Vital Signs (last 24 hours): Temp Pulse Resp BP Pulse Ox 98.1 F 73 20 118/66 97 01/15/17 07:59 01/15/17 07:59 01/15/17 07:59 01/15/17 07:59 01/15/17 07:59 Intake and Output: 01/15/17 01/15/17 06:59 18:59 Intake Total 440 Output Total 100 Balance 340 - Medications Medications: Current Medications Arformoterol Tartrate (Brovana) 15 mcg IH BID [facility] Last Admin: 01/15/17 07:47 Dose: 15 mcg Budesonide (Pulmicort Respules) 0.5 mg IH [id number] [facility] Last Admin: 01/15/17 07:47 Dose: 0.5 mg Enoxaparin Sodium (Lovenox) 40 mg SC DAILY [facility] PRN Reason: Protocol Last Admin: 01/15/17 09:57 Dose: 40 mg Famotidine (Pepcid) 20 mg PO DAILY [facility] Last Admin: 01/15/17 09:57 Dose: 20 mg Hydrocortisone (Anusol-Hc) 25 mg RC BID [facility] Last Admin: 01/15/17 10:05 Dose: Not Given Hydrocortisone (Anusol-Hc) 0 gm [place] BID [facility] Last Admin: 01/15/17 12:44 Dose: Not Given Ceftriaxone Sodium (Rocephin 1 Gram Ivpb) 1 gm in 100 mls @ 100 mls/hr IVPB DAILY [facility] PRN Reason: Protocol Last Admin: 01/15/17 09:57 Dose: 100 mls/hr Metronidazole (Flagyl) 500 mg in 100 mls @ 100 mls/hr IVPB Q8 [facility] PRN Reason: Protocol Last Admin: 01/15/17 13:34 Dose: 100 mls/hr Ketorolac Tromethamine (Toradol) 15 mg IVP Q4 PRN PRN Reason: Pain, moderate (4-7) Lidocaine HCl (Xylocaine 2% (Uro-Jet)) 1 ea TOP QID PRN PRN Reason: RECTAL PAIN Mesalamine (Rowasa Enema) 4 gm RC BID [facility] Last Admin: 01/15/17 09:58 Dose: Not Given Multi-Ingredient Ointment (Prep-Hem) 1 ea TOP QID [facility] Last Admin: 01/15/17 13:34 Dose: 1 ea Non-Formulary Medication (Lactobacillus Rhamnosus Gg [Culturelle]) 1 each PO DAILY [facility] Last Admin: 01/15/17 09:58 Dose: Not Given Tamsulosin HCl (Flomax) 0.4 mg PO DAILY [facility] Last Admin: 01/15/17 09:57 Dose: 0.4 mg - Labs Labs: 01/15/17 05:00 01/15/17 05:00 - Constitutional Appears: No Acute Distress - Head Exam Head Exam: ATRAUMATIC, NORMAL INSPECTION, NORMOCEPHALIC - Eye Exam Eye Exam: EOMI, Normal appearance, PERRL - ENT Exam ENT Exam: Mucous Membranes Moist, Normal Exam - Neck Exam Neck Exam: Full ROM, Normal Inspection. absent: Lymphadenopathy - Respiratory Exam Respiratory Exam: Clear to Ausculation Bilateral, NORMAL BREATHING PATTERN - Cardiovascular Exam Cardiovascular Exam: REGULAR RHYTHM, +S1, +S2. absent: Murmur - GI/Abdominal Exam GI & Abdominal Exam: Soft, Normal Bowel Sounds. absent: Tenderness - Rectal Exam Rectal Exam: Hemorrhoids - Neurological Exam Neurological Exam: Alert, Awake, CN II-XII Intact, Normal Gait, Oriented x3 - Psychiatric Exam Psychiatric exam: Normal Affect, Normal Mood - Skin Skin Exam: Dry, Intact, Normal Color, Warm Assessment and Plan - Assessment and Plan (Free Text) Assessment: 76 M with PMHx significant for Ulcerative colitis admitted for UC flare and UTI UC Flare - GI Consult; Dr. Lu, recommend remacaid this fri, rowasa enema following hemmrhoid relief - fecal calprotectin pending - flagyl - Pt currently undergoing authorization for uceris out patient. - Sent anti-infliximab antibodies (anti-remicade Ab) - MRI of abd/pelvis with contrast for fistula eval - Stool cultures, stool ova and parasites and c diff antigen and Ab pending - Continue flagyl prophylactically Hemmroids - anusol and proctosol. Will continue lidocain. Sitz baths - prep h UTI -+LE and dysuria; ceftriaxone -Urine Culture pending; no history of drug resistant bugs on UC in past -blood cultures negative COPD -c/w home meds Prophlyaxis -Pepcid -Lovenox SC -Heart Healthy Diet seen reviewed and discussed with attending <Avery Lindsey B - Last Filed: 01/16/17 15:30> Objective - Vital Signs/Intake and Output Vital Signs (last 24 hours): Temp Pulse Resp BP Pulse Ox 98.4 F 70 18 122/70 98 01/16/17 07:30 01/16/17 07:30 01/16/17 07:30 01/16/17 07:30 01/16/17 07:30 Intake and Output: 01/16/17 01/16/17 06:59 18:59 Intake Total 540 600 Balance 540 600 - Medications Medications: Current Medications Arformoterol Tartrate (Brovana) 15 mcg IH BID [facility] Last Admin: 01/16/17 09:03 Dose: 15 mcg Budesonide (Pulmicort Respules) 0.5 mg IH [id number] [facility] Last Admin: 01/16/17 09:03 Dose: 0.5 mg Enoxaparin Sodium (Lovenox) 40 mg SC DAILY [facility] PRN Reason: Protocol Last Admin: 01/16/17 10:05 Dose: 40 mg Famotidine (Pepcid) 20 mg PO DAILY [facility] Last Admin: 01/16/17 10:06 Dose: 20 mg Hydrocortisone (Anusol-Hc) 25 mg RC BID [facility] Last Admin: 01/16/17 10:07 Dose: Not Given Hydrocortisone (Anusol-Hc) 1 gm [place] BID PRN PRN Reason: Hemorrhoids Ceftriaxone Sodium (Rocephin 1 Gram Ivpb) 1 gm in 100 mls @ 100 mls/hr IVPB DAILY [facility] PRN Reason: Protocol Last Admin: 01/16/17 10:05 Dose: 100 mls/hr Metronidazole (Flagyl) 500 mg in 100 mls @ 100 mls/hr IVPB Q8 [facility] PRN Reason: Protocol Last Admin: 01/16/17 13:55 Dose: 100 mls/hr Ketorolac Tromethamine (Toradol) 15 mg IVP Q4 PRN PRN Reason: Pain, moderate (4-7) Lidocaine HCl (Xylocaine 2% (Uro-Jet)) 1 ea TOP QID PRN PRN Reason: RECTAL PAIN Mesalamine (Rowasa Enema) 4 gm RC BID [facility] Last Admin: 01/16/17 10:43 Dose: 4 gm Multi-Ingredient Ointment (Prep-Hem) 1 ea TOP QID PRN PRN Reason: Hemorrhoids Non-Formulary Medication (Lactobacillus Rhamnosus Gg [Culturelle]) 1 each PO DAILY [facility] Last Admin: 01/16/17 10:06 Dose: Not Given Tamsulosin HCl (Flomax) 0.4 mg PO DAILY [facility] Last Admin: 01/16/17 10:06 Dose: 0.4 mg - Labs Labs: 01/16/17 05:00 01/16/17 05:00 Attending/Attestation - Attestation I have personally seen and examined this patient.: Yes I have fully participated in the care of the patient.: Yes I have reviewed all pertinent clinical information, including history, physical exam and plan: Yes Notes (Text): I have seen and examined the patient at bedside. Agree with the above note with the following additions/ exceptions: This is 76 year old male with history of Ulcerative colitis on remicade admitted for UC flare and UTI. He is on rocephin and flagyl. His hemorrhoids were painful today and he was not able to tolerate rowasa enema. He was given anusol and proctosol. Sitz bath recommended. Urine culture pending. MRI abdomen pending. Stool studies also pending. Discussed with Dr Holliday. Dr Avery Lindsey
[2017-01-16] MEDS: metroNIDAZOLE IV 500 mg/100 ml 500 MG/100 ML BAG IVPB SCH ×2 (07:09→13:55)
[2017-01-16 07:39] LABS: ADD MANUAL DIFF? NO; BASO # 0.02 K/mm3 (0.0-2.0); BASO % 0.5 % (0.0-3.0); EOS % 0.2 % (1.5-5.0); GRAN # 1.66 (1.4-6.5); GRAN % 39.8 % (50.0-68.0); HEMATOCRIT 37.3 % (42.0-52.0); LYMPH % 47.5 % (22.0-35.0); MEAN CELL VOLUME 96.6 fL (80.0-105.0); MEAN CORPUSCULAR HEMOGLOBIN 32.6 pg (25.0-35.0); MEAN CORPUSCULAR HGB CONC 33.8 g/dl (31.0-37.0); MEAN PLATELET VOLUME 8.4 fl (7.0-11.0); MONO # 0.5 (0.1-0.6); PLATELET COUNT 157 10^3/uL (120.0-450.0); RED CELL DISTRIBUTION WIDTH 13.6 % (11.5-14.5); WHITE BLOOD COUNT 4.2 10^3/ul (4.5-11.0)
--- NOTE | 2017-01-16 07:41 | CP.PCM.PN ---
<Claritza Purdy - Last Filed: 01/16/17 07:44> Subjective - Date & Time of Evaluation Date of Evaluation: 01/16/17 Time of Evaluation: 07:00 - Subjective Subjective: Pt was seen and examined at bedside. Pt had a formed bowel movement this morning. Pt is tolerating the ulcerative colitis therapy regimen well. Pt is tolerating diet well. He states that his pain is better controlled than before and is ambulating. Pt still experiences rectal spasms while using the restroom, specifically while wiping. Pt denied fever, chills, chest pains, sob, abdominal pains, n/v/d/c or any urinary symptoms. Objective - Vital Signs/Intake and Output Vital Signs (last 24 hours): Temp Pulse Resp BP Pulse Ox 97.9 F 74 22 107/66 97 01/15/17 16:00 01/15/17 16:00 01/15/17 16:00 01/15/17 16:00 01/15/17 16:00 Intake and Output: 01/16/17 01/16/17 06:59 18:59 Intake Total 540 Balance 540 - Medications Medications: Current Medications Arformoterol Tartrate (Brovana) 15 mcg IH BID [facility] Last Admin: 01/15/17 22:00 Dose: 15 mcg Budesonide (Pulmicort Respules) 0.5 mg IH [id number] [facility] Last Admin: 01/15/17 22:00 Dose: 0.5 mg Enoxaparin Sodium (Lovenox) 40 mg SC DAILY [facility] PRN Reason: Protocol Last Admin: 01/15/17 09:57 Dose: 40 mg Famotidine (Pepcid) 20 mg PO DAILY [facility] Last Admin: 01/15/17 09:57 Dose: 20 mg Hydrocortisone (Anusol-Hc) 25 mg RC BID [facility] Last Admin: 01/15/17 17:55 Dose: 25 mg Hydrocortisone (Anusol-Hc) 0 gm [place] BID [facility] Last Admin: 01/15/17 17:50 Dose: 1 ea Ceftriaxone Sodium (Rocephin 1 Gram Ivpb) 1 gm in 100 mls @ 100 mls/hr IVPB DAILY [facility] PRN Reason: Protocol Last Admin: 01/15/17 09:57 Dose: 100 mls/hr Metronidazole (Flagyl) 500 mg in 100 mls @ 100 mls/hr IVPB Q8 [facility] PRN Reason: Protocol Last Admin: 01/16/17 07:09 Dose: 100 mls/hr Ketorolac Tromethamine (Toradol) 15 mg IVP Q4 PRN PRN Reason: Pain, moderate (4-7) Lidocaine HCl (Xylocaine 2% (Uro-Jet)) 1 ea TOP QID PRN PRN Reason: RECTAL PAIN Mesalamine (Rowasa Enema) 4 gm RC BID [facility] Last Admin: 01/15/17 17:51 Dose: Not Given Multi-Ingredient Ointment (Prep-Hem) 1 ea TOP QID [facility] Last Admin: 01/15/17 21:41 Dose: 1 ea Non-Formulary Medication (Lactobacillus Rhamnosus Gg [Culturelle]) 1 each PO DAILY [facility] Last Admin: 01/15/17 09:58 Dose: Not Given Tamsulosin HCl (Flomax) 0.4 mg PO DAILY [facility] Last Admin: 01/15/17 09:57 Dose: 0.4 mg - Constitutional Appears: Well, No Acute Distress - Head Exam Head Exam: ATRAUMATIC, NORMAL INSPECTION, NORMOCEPHALIC - Eye Exam Eye Exam: EOMI, Normal appearance, PERRL Pupil Exam: NORMAL ACCOMODATION, PERRL - ENT Exam ENT Exam: Mucous Membranes Moist, Normal Exam - Respiratory Exam Respiratory Exam: Clear to Ausculation Bilateral, NORMAL BREATHING PATTERN - Cardiovascular Exam Cardiovascular Exam: REGULAR RHYTHM, +S1, +S2. absent: Murmur - GI/Abdominal Exam GI & Abdominal Exam: Soft, Normal Bowel Sounds. absent: Tenderness - Rectal Exam Rectal Exam: Hemorrhoids - Extremities Exam Extremities Exam: Full ROM, Normal Capillary Refill, Normal Inspection. absent : Joint Swelling, Pedal Edema - Neurological Exam Neurological Exam: Alert, Awake, CN II-XII Intact, Normal Gait, Oriented x3 - Psychiatric Exam Psychiatric exam: Normal Affect, Normal Mood - Skin Skin Exam: Dry, Intact, Normal Color, Warm Assessment and Plan - Assessment and Plan (Free Text) Assessment: 76 M with PMHx significant for Ulcerative colitis admitted for UC flare and UTI UC Flare - GI Consult; Dr. Lu, recommend remacaid this fri, rowasa enema following hemmorhoid relief - fecal calprotectin pending - flagyl - Pt currently undergoing authorization for uceris outpatient. - Sent anti-infliximab antibodies (anti-remicade Ab) - MRI of abd/pelvis with contrast for fistula eval - Stool cultures, stool ova and parasites - C diff antigen and Ab negative - Continue flagyl prophylactically Hemmoroids - anusol and proctosol. Will continue lidocain. Sitz baths - prep h UTI - ceftriaxone - Urine Culture negative - blood cultures negative - no dysuria COPD - continue home meds Prophlyaxis -Pepcid -Lovenox SC -Heart Healthy Diet seen reviewed and discussed with attending Avery Dudley - Last Filed: 01/17/17 15:19> Objective - Vital Signs/Intake and Output Vital Signs (last 24 hours): Temp Pulse Resp BP Pulse Ox 98.2 F 70 20 125/69 96 01/16/17 16:00 01/16/17 16:00 01/16/17 16:00 01/16/17 16:00 01/16/17 16:00 - Labs Labs: 01/16/17 05:00 01/16/17 05:00 Attending/Attestation - Attestation I have personally seen and examined this patient.: Yes I have fully participated in the care of the patient.: Yes I have reviewed all pertinent clinical information, including history, physical exam and plan: Yes Notes (Text): I have seen and examined the patient at bedside. Agree with the above note with the following additions/ exceptions: This is 76 year old male with history of Ulcerative colitis on remicade admitted for UC flare and UTI. He is on rocephin and flagyl. His hemorrhoids have improved today. He was given anusol and proctosol. Continue Sitz bath. MRI abdomen result is pending. Stool studies also pending. Upon discharge, will follow up with Dr Holliday. Dr Avery Lindsey
[2017-01-16 07:57] LABS: ALB/GLOB RATIO 1.3 (1.1-1.8); ALKALINE PHOSPHATASE 48 U/L (38-133); ALT/SGPT 37 U/L (7-56); AST/SGOT 23 U/L (15-59); BILIRUBIN,TOTAL 0.5 mg/dL (0.2-1.3); BLOOD UREA NITROGEN 16 mg/dL (7-21); CALCIUM 9.2 mg/dL (8.4-10.5); CARBON DIOXIDE 27 mmol/L (21-33); CHLORIDE 107 mmol/L (98-107); GFR AFRICAN-AMERICAN > 60; GLUCOSE,RANDOM 82 mg/dL (70-110); POTASSIUM 4.3 mmol/L (3.6-5.0); SODIUM 143 mmol/L (132-148); TOTAL PROTEIN 6.5 g/dL (5.8-8.3)
[2017-01-16 08:00] VITALS: PULSE 70
[2017-01-16] MEDS ORDERED: Hydrocortisone 2.5% Rectal Cream(30 gm) PR PRN (08:48)
[2017-01-16] MEDS: Budesonide 0.5 mg/2 ml Inhal Susp UD IH SCH (09:03)
[2017-01-16] MEDS: Arformoterol 15 mcg/2 ml Inh Sol IH SCH (09:03)
--- NOTE | 2017-01-16 09:09 | CP.PCM.PN ---
<Kaylene Arroyo - Last Filed: 01/16/17 11:28> Subjective - Date & Time of Evaluation Date of Evaluation: 01/16/17 Time of Evaluation: 08:58 - Subjective Subjective: Gastroenterology Fellow/PGY4 Progress Note Patient notes improved rectal pain from 10/10 to 2/10 with use of hemorrhoidal medications. Tolerating regular diet. Normal bowel movement this morning. Notes rectal pain exacerbated by bowel movements. Describes as a rectal spasm and slight discomfort/pain exacerbated by bowel movements and prolonged periods of sitting. A 12-point review of systems negative except for as above. Objective - Vital Signs/Intake and Output Vital Signs (last 24 hours): Temp Pulse Resp BP Pulse Ox 98.4 F 70 18 122/70 98 01/16/17 07:30 01/16/17 07:30 01/16/17 07:30 01/16/17 07:30 01/16/17 07:30 Intake and Output: 01/16/17 01/16/17 06:59 18:59 Intake Total 540 Balance 540 - Medications Medications: Current Medications Arformoterol Tartrate (Brovana) 15 mcg IH BID [facility] Last Admin: 01/15/17 22:00 Dose: 15 mcg Budesonide (Pulmicort Respules) 0.5 mg IH [id number] [facility] Last Admin: 01/15/17 22:00 Dose: 0.5 mg Enoxaparin Sodium (Lovenox) 40 mg SC DAILY [facility] PRN Reason: Protocol Last Admin: 01/15/17 09:57 Dose: 40 mg Famotidine (Pepcid) 20 mg PO DAILY [facility] Last Admin: 01/15/17 09:57 Dose: 20 mg Hydrocortisone (Anusol-Hc) 25 mg RC BID [facility] Last Admin: 01/15/17 17:55 Dose: 25 mg Hydrocortisone (Anusol-Hc) 1 gm [facility] PRN PRN PRN Reason: Hemorrhoids Ceftriaxone Sodium (Rocephin 1 Gram Ivpb) 1 gm in 100 mls @ 100 mls/hr IVPB DAILY [facility] PRN Reason: Protocol Last Admin: 01/15/17 09:57 Dose: 100 mls/hr Metronidazole (Flagyl) 500 mg in 100 mls @ 100 mls/hr IVPB Q8 [facility] PRN Reason: Protocol Last Admin: 01/16/17 07:09 Dose: 100 mls/hr Ketorolac Tromethamine (Toradol) 15 mg IVP Q4 PRN PRN Reason: Pain, moderate (4-7) Lidocaine HCl (Xylocaine 2% (Uro-Jet)) 1 ea TOP QID PRN PRN Reason: RECTAL PAIN Mesalamine (Rowasa Enema) 4 gm RC BID [facility] Last Admin: 01/15/17 17:51 Dose: Not Given Multi-Ingredient Ointment (Prep-Hem) 1 ea TOP PRN PRN PRN Reason: Hemorrhoids Non-Formulary Medication (Lactobacillus Rhamnosus Gg [Culturelle]) 1 each PO DAILY [facility] Last Admin: 01/15/17 09:58 Dose: Not Given Tamsulosin HCl (Flomax) 0.4 mg PO DAILY [facility] Last Admin: 01/15/17 09:57 Dose: 0.4 mg - Labs Labs: 01/16/17 05:00 01/16/17 05:00 - Constitutional Appears: Non-toxic, No Acute Distress - Head Exam Head Exam: ATRAUMATIC, NORMOCEPHALIC - Eye Exam Eye Exam: EOMI, PERRL Pupil Exam: PERRL. absent: Miosis, Mydriatic - ENT Exam ENT Exam: Mucous Membranes Moist, Normal Oropharynx - Neck Exam Neck Exam: Full ROM, Normal Inspection - Respiratory Exam Respiratory Exam: Clear to Ausculation Bilateral. absent: Rales, Rhonchi, Wheezes - Cardiovascular Exam Cardiovascular Exam: RRR, +S1, +S2. absent: Gallop, Rubs - GI/Abdominal Exam GI & Abdominal Exam: Soft, Normal Bowel Sounds. absent: Distended, Firm, Guarding, Rigid, Tenderness, Organomegaly, Rebound - Extremities Exam Extremities Exam: Full ROM. absent: Pedal Edema - Neurological Exam Neurological Exam: Alert, Awake - Psychiatric Exam Psychiatric exam: Normal Affect, Normal Mood - Skin Skin Exam: Dry, Intact, Normal Color, Warm Assessment and Plan - Assessment and Plan (Free Text) Assessment: 76 year old male with medical history of COPD and Ulcerative colitis ( proctosigmoiditis) diagnosed 20 years ago, on Remicade since 2014 presenting with diarrhea and rectal pain. Active treatment of UTI and rectal pain likely secondary to hemorrhoids. Flexible sigmoidoscopy performed November 2016 showed chronic mild inflammation of rectum and sigmoid. Currently awaiting [facility] approval outpatient with Dr. Lu. Plan: >continue Anusol RC BID, Proctosol cream [facility] PRN, Prep-H cream [facility] PRN >continue Rowasa as tolerated, trialed outpatient with minimal relief >rectal pain 70% subjective improvment with hemorrhoidal treatment >MRI A/P IV contrast- no acute findings, no fistula noted >recommend discontinue Flagyl- Cdiff negative >pending stool culture and O&P >on ceftriaxone for UTI >consider discharge today, continue supportive outpatient hemorrhoidal treatment >plan for outpatient Remicade infusion at [facility] tomorrow as previously scheduled >follow up with Dr. Lu <Neil Barahona - Last Filed: 01/16/17 11:55> Objective - Vital Signs/Intake and Output Vital Signs (last 24 hours): Temp Pulse Resp BP Pulse Ox 98.4 F 70 18 122/70 98 01/16/17 07:30 01/16/17 07:30 01/16/17 07:30 01/16/17 07:30 01/16/17 07:30 Intake and Output: 01/16/17 01/16/17 06:59 18:59 Intake Total 540 Balance 540 - Medications Medications: Current Medications Arformoterol Tartrate (Brovana) 15 mcg IH BID [facility] Last Admin: 01/16/17 09:03 Dose: 15 mcg Budesonide (Pulmicort Respules) 0.5 mg IH [id number] [facility] Last Admin: 01/16/17 09:03 Dose: 0.5 mg Enoxaparin Sodium (Lovenox) 40 mg SC DAILY [facility] PRN Reason: Protocol Last Admin: 01/16/17 10:05 Dose: 40 mg Famotidine (Pepcid) 20 mg PO DAILY [facility] Last Admin: 01/16/17 10:06 Dose: 20 mg Hydrocortisone (Anusol-Hc) 25 mg RC BID [facility] Last Admin: 01/16/17 10:07 Dose: Not Given Hydrocortisone (Anusol-Hc) 1 gm [facility] BID PRN PRN Reason: Hemorrhoids Ceftriaxone Sodium (Rocephin 1 Gram Ivpb) 1 gm in 100 mls @ 100 mls/hr IVPB DAILY [facility] PRN Reason: Protocol Last Admin: 01/16/17 10:05 Dose: 100 mls/hr Metronidazole (Flagyl) 500 mg in 100 mls @ 100 mls/hr IVPB Q8 [facility] PRN Reason: Protocol Last Admin: 01/16/17 07:09 Dose: 100 mls/hr Ketorolac Tromethamine (Toradol) 15 mg IVP Q4 PRN PRN Reason: Pain, moderate (4-7) Lidocaine HCl (Xylocaine 2% (Uro-Jet)) 1 ea TOP QID PRN PRN Reason: RECTAL PAIN Mesalamine (Rowasa Enema) 4 gm RC BID [facility] Last Admin: 01/16/17 10:43 Dose: 4 gm Multi-Ingredient Ointment (Prep-Hem) 1 ea TOP QID PRN PRN Reason: Hemorrhoids Non-Formulary Medication (Lactobacillus Rhamnosus Gg [Culturelle]) 1 each PO DAILY [facility] Last Admin: 01/16/17 10:06 Dose: Not Given Tamsulosin HCl (Flomax) 0.4 mg PO DAILY [facility] Last Admin: 01/16/17 10:06 Dose: 0.4 mg - Labs Labs: 01/16/17 05:00 01/16/17 05:00 Attending/Attestation - Attestation I have personally seen and examined this patient.: Yes I have fully participated in the care of the patient.: Yes I have reviewed all pertinent clinical information, including history, physical exam and plan: Yes Notes (Text): Patient seen and examined with GI fellow. Agree with note as documented above with the following additions/exceptions. 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 Stool infectious w/u negative thusfar. MRI abd/ pelvis yesterday unremarkable. His rectal pain is slightly improved today with topical therapy. Would continue supportive care and treatment as outlined above. Continue antibiotic therapy for UTI. Consider addition of topical diltiazem for proctalgia if symptoms worsen. No further inpatient GI evaluation required at present. Continue diet as tolerated. He should follow up with Dr. Lu as outpatient; he is scheduled for outpatient infliximab infusion tomorrow. 01/16/17 11:52
[2017-01-16] MEDS ORDERED: Hemorrohoidal Ointment (2 oz) TOP PRN (10:00)
[2017-01-16] MEDS: Enoxaparin 40 mg Syringe SC SCH (10:05)
[2017-01-16] MEDS: cefTRIAXone 1 gm 1 GM/100 ML BAG IVPB SCH (10:05)
[2017-01-16] MEDS: LACTOBACILLUS RHAMNOSUS GG PO SCH (10:06)
--- NOTE | 2017-01-16 10:36 | MRI ---
PROCEDURE: MRI Abdomen with and without contrast HISTORY: Rectal pain, history of ulcerative colitis, evaluate for fistula COMPARISON: None available. TECHNIQUE: Multisequence, multiplanar MR images of the abdomen with and without gadolinium contrast enhancement. 15 cc of Omniscan FINDINGS: LIVER: Unremarkable. GALLBLADDER: Gallbladder removed SPLEEN: Unremarkable. PANCREAS: Unremarkable. ADRENALS: Unremarkable. KIDNEYS: Unremarkable. AORTA: No aneurysm. ASCITES: None. PERITONEUM: Unremarkable. LYMPH NODES: Unremarkable. OTHER FINDINGS: None. IMPRESSION: Negative study
--- NOTE | 2017-01-16 10:46 | MRI ---
PROCEDURE: MRI pelvis with and without contrast HISTORY: rectal pain, histoy of UC, evaluate for fistula COMPARISON: None available. TECHNIQUE: Multiplanar, multi sequence MR images of the pelvis were obtained following administration of intravenous gadolinium contrast. 15 cc of Omniscan FINDINGS: BOWEL: Partially visualized rectosigmoid colon is grossly unremarkable. LYMPH NODES: No lymphadenopathy. BLADDER: Multiple diverticula are seen in the bladder. There is also some thickening of the bladder wall. There is also a TURP defect. PROSTATE: TURP defect FREE FLUID: None. PELVIC BONES: Grossly unremarkable. OTHER FINDINGS: None. IMPRESSION: No evidence of rectal fistula. TURP defect in the prostate Multiple bladder diverticula
--- NOTE | 2017-01-16 16:40 | CP.PCM.DIS ---
<GurwinderClaritza - Last Filed: 01/18/17 18:19> Provider - Provider Date of Admission: 01/15/17 14:41 Attending physician: Avery Lindsey MD Primary care physician: Sung Cooper MD Consults: GI: Dr. Lu Time Spent in preparation of Discharge (in minutes): 45 Hospital Course - Lab Results Lab Results: Most Recent Lab Values WBC 4.2 10^3/ul (4.5-11.0) L 01/16/17 05:00 RBC 3.86 10^6/uL (3.5-6.1) 01/16/17 05:00 Hgb 12.6 gm/dL (14.0-18.0) L 01/16/17 05:00 Hct 37.3 % (42.0-52.0) L 01/16/17 05:00 MCV 96.6 fL (80.0-105.0) 01/16/17 05:00 MCH 32.6 pg (25.0-35.0) 01/16/17 05:00 MCHC 33.8 g/dl (31.0-37.0) 01/16/17 05:00 RDW 13.6 % (11.5-14.5) 01/16/17 05:00 Plt Count 157 10^3/uL (120.0-450.0) 01/16/17 05:00 MPV 8.4 fl (7.0-11.0) 01/16/17 05:00 Gran % 39.8 % (50.0-68.0) L 01/16/17 05:00 Lymph % (Auto) 47.5 % (22.0-35.0) H 01/16/17 05:00 Amelia % (Auto) 12.0 % (1.0-6.0) H 01/16/17 05:00 Eos % (Auto) 0.2 % (1.5-5.0) L 01/16/17 05:00 Baso % (Auto) 0.5 % (0.0-3.0) 01/16/17 05:00 Gran # 1.66 (1.4-6.5) 01/16/17 05:00 Lymph # 2.0 (1.2-3.4) 01/16/17 05:00 Amelia # 0.5 (0.1-0.6) 01/16/17 05:00 Eos # 0.0 (0.0-0.7) 01/16/17 05:00 Baso # 0.02 K/mm3 (0.0-2.0) 01/16/17 05:00 ESR 24 mm/hr (0.00-15.0) H 01/14/17 08:05 Sodium 143 mmol/L (132-148) 01/16/17 05:00 Potassium 4.3 mmol/L (3.6-5.0) 01/16/17 05:00 Chloride 107 mmol/L (98-107) 01/16/17 05:00 Carbon Dioxide 27 mmol/L (21-33) 01/16/17 05:00 Anion Gap 13 (10-20) 01/16/17 05:00 BUN 16 mg/dL (7-21) 01/16/17 05:00 Creatinine 0.8 mg/dL (0.5-1.4) 01/16/17 05:00 Est GFR ( Amer) > 60 01/16/17 05:00 Est GFR (Non-Af Amer) > 60 01/16/17 05:00 Random Glucose 82 mg/dL (70-110) 01/16/17 05:00 Calcium 9.2 mg/dL (8.4-10.5) 01/16/17 05:00 Total Bilirubin 0.5 mg/dL (0.2-1.3) 01/16/17 05:00 AST 23 U/L (15-59) 01/16/17 05:00 ALT 37 U/L (7-56) 01/16/17 05:00 Alkaline Phosphatase 48 U/L (38-133) 01/16/17 05:00 C-Reactive Prot, Quant <0.1 mg/dL (<0.8) 01/14/17 08:05 Total Protein 6.5 g/dL (5.8-8.3) 01/16/17 05:00 Albumin 3.7 g/dL (3.0-4.8) 01/16/17 05:00 Globulin 2.8 gm/dL 01/16/17 05:00 Albumin/Globulin Ratio 1.3 (1.1-1.8) 01/16/17 05:00 Urine Color Yellow (YELLOW) 01/14/17 04:31 Urine Appearance Sl cloudy (CLEAR) 01/14/17 04:31 Urine pH 6.0 (4.7-8.0) 01/14/17 04:31 Ur Specific [place] 1.010 (1.005-1.035) 01/14/17 04:31 Urine Protein Negative mg/dL (<30 mg/dL) 01/14/17 04:31 Urine Glucose (UA) Negative mg/dL (NEGATIVE) 01/14/17 04:31 Urine Ketones Negative mg/dL (NEGATIVE) 01/14/17 04:31 Urine Blood Trace-intact (NEGATIVE) H 01/14/17 04:31 Urine Nitrate Negative (NEGATIVE) 01/14/17 04:31 Urine Bilirubin Negative (NEGATIVE) 01/14/17 04:31 Urine Urobilinogen 0.2 E.U./dL (<1 E.U./dL) 01/14/17 04:31 Ur Leukocyte Esterase Moderate Anne-Marie/uL (NEGATIVE) H 01/14/17 04:31 Urine RBC 1 - 3 /hpf (0-2) 01/14/17 04:31 Urine WBC 15 - 20 /hpf (0-6) 01/14/17 04:31 Ur Epithelial Cells 1 - 3 /hpf (0-5) 01/14/17 04:31 Urine Bacteria Few (NEG) 01/14/17 04:31 - Hospital Course Hospital Course: 76 year old male with medical history of COPD and Ulcerative colitis ( proctosigmoiditis) diagnosed 20 years ago, on Remicade since 2014 presenting to the ED w/ a 1mo history of worsening UC symptoms (tenesmus, fecal incontinence, and rectal pain) as well as bladder spasms. He states that he feels like his medication is not working. He was recently started on flomax for urinary retention which has since helped retention symptoms, but now has bladder like spasms for the past week. Pt was found to have UTI and subsequently administered abx. Flexible sigmoidoscopy performed November 2016 showed chronic mild inflammation of rectum and sigmoid. Currently awaiting Uceris approval outpatient with Dr. Lu. Gi, Dr. Lu consulted. As per GI, Rectal pain likely due to UTI. negative HSV and CMV. Unable to tolerate rowasa enema. Was given proctosol cream for rectal for hemorrhoids and try canasa suppositories. MRI abdomen with IV contrast was ordered to evaluate for fistuals. Stool infectious work up returned negative. Continue antibiotics as indicated. Patient notes improved rectal pain from 10/10 to 2/10 with use of hemorrhoidal medications. Tolerating regular diet. Normal bowel movement this morning. Notes rectal pain exacerbated by bowel movements. His rectal pain is slightly improved today with topical therapy. Would continue supportive care and treatment as outlined above. Continue antibiotic therapy for UTI. Consider addition of topical diltiazem for proctalgia if symptoms worsen. No further inpatient GI evaluation required at present. Continue diet as tolerated. He should follow up with Dr. Lu as outpatient; he is scheduled for outpatient infliximab infusion tomorrow at [facility]. Pt to fu with PMD Dr. Cooper upon dc. Pt is to Fu with GI Dr. Lu. Discharge Exam - Head Exam Head Exam: ATRAUMATIC, NORMOCEPHALIC - Eye Exam Eye Exam: EOMI, Normal appearance, PERRL Pupil Exam: NORMAL ACCOMODATION, PERRL - ENT Exam ENT Exam: Mucous Membranes Moist - Respiratory Exam Respiratory Exam: Clear to PA & Lateral, NORMAL BREATHING PATTERN, UNREMARKABLE - Cardiovascular Exam Cardiovascular Exam: RRR, +S1, +S2 - GI/Abdominal Exam GI & Abdominal Exam: Normal Bowel Sounds - Rectal Exam Rectal Exam: Deferred - Extremities Exam Extremities exam: normal inspection - Back Exam Back exam: NORMAL INSPECTION - Neurological Exam Neurological exam: Alert, CN II-XII Intact, Normal Gait, Oriented x3, Reflexes Normal - Psychiatric Exam Psychiatric exam: Normal Affect, Normal Mood - Skin Skin Exam: Dry, Intact, Normal Color, Warm Discharge Plan - Discharge Medications Prescriptions: Ciprofloxacin [Cipro] 500 mg PO BID #14 tab Hydrocortisone [Anusol-Hc] 25 mg RC BID 14 Days Hydrocortisone 2.5% (Rectal) [Anusol-Hc] 1 gm VT BID PRN #1 PRN Reason: Hemorrhoids Lidocaine 2% Gel [Xylocaine 2% (Uro-Jet)] 1 ea TOP QID PRN #1 PRN Reason: RECTAL PAIN - Follow Up Plan Condition: STABLE Disposition: HOME/ ROUTINE Instructions: Hemorrhoids (DC), Pneumococcal Vaccine for Adults (DC), Urinary Tract Infection in Women (DC), Urinary Tract Infection in Men (DC), Urinary Tract Infection in Men (GEN), Ulcerative Colitis (DC), Ulcerative Colitis (GEN) , Acute Abdominal Pain (GEN), Dysuria (GEN) Additional Instructions: Take medications as prescribed. Follow up with primary care provider. Return to Local ER if symptoms worsen. Referrals: Sung Cooper MD [Primary Care Provider] - <Avery Lindsey - Last Filed: 01/20/17 07:36> Provider - Provider Date of Admission: 01/15/17 14:41 Attending physician: Avery Lindsey MD Primary care physician: Sung Cooper MD Hospital Course - Lab Results Lab Results: Most Recent Lab Values WBC 4.2 10^3/ul (4.5-11.0) L 01/16/17 05:00 RBC 3.86 10^6/uL (3.5-6.1) 01/16/17 05:00 Hgb 12.6 gm/dL (14.0-18.0) L 01/16/17 05:00 Hct 37.3 % (42.0-52.0) L 01/16/17 05:00 MCV 96.6 fL (80.0-105.0) 01/16/17 05:00 MCH 32.6 pg (25.0-35.0) 01/16/17 05:00 MCHC 33.8 g/dl (31.0-37.0) 01/16/17 05:00 RDW 13.6 % (11.5-14.5) 01/16/17 05:00 Plt Count 157 10^3/uL (120.0-450.0) 01/16/17 05:00 MPV 8.4 fl (7.0-11.0) 01/16/17 05:00 Gran % 39.8 % (50.0-68.0) L 01/16/17 05:00 Lymph % (Auto) 47.5 % (22.0-35.0) H 01/16/17 05:00 Amelia % (Auto) 12.0 % (1.0-6.0) H 01/16/17 05:00 Eos % (Auto) 0.2 % (1.5-5.0) L 01/16/17 05:00 Baso % (Auto) 0.5 % (0.0-3.0) 01/16/17 05:00 Gran # 1.66 (1.4-6.5) 01/16/17 05:00 Lymph # 2.0 (1.2-3.4) 01/16/17 05:00 Amelia # 0.5 (0.1-0.6) 01/16/17 05:00 Eos # 0.0 (0.0-0.7) 01/16/17 05:00 Baso # 0.02 K/mm3 (0.0-2.0) 01/16/17 05:00 ESR 24 mm/hr (0.00-15.0) H 01/14/17 08:05 Sodium 143 mmol/L (132-148) 01/16/17 05:00 Potassium 4.3 mmol/L (3.6-5.0) 01/16/17 05:00 Chloride 107 mmol/L (98-107) 01/16/17 05:00 Carbon Dioxide 27 mmol/L (21-33) 01/16/17 05:00 Anion Gap 13 (10-20) 01/16/17 05:00 BUN 16 mg/dL (7-21) 01/16/17 05:00 Creatinine 0.8 mg/dL (0.5-1.4) 01/16/17 05:00 Est GFR ( Amer) > 60 01/16/17 05:00 Est GFR (Non-Af Amer) > 60 01/16/17 05:00 Random Glucose 82 mg/dL (70-110) 01/16/17 05:00 Calcium 9.2 mg/dL (8.4-10.5) 01/16/17 05:00 Total Bilirubin 0.5 mg/dL (0.2-1.3) 01/16/17 05:00 AST 23 U/L (15-59) 01/16/17 05:00 ALT 37 U/L (7-56) 01/16/17 05:00 Alkaline Phosphatase 48 U/L (38-133) 01/16/17 05:00 C-Reactive Prot, Quant <0.1 mg/dL (<0.8) 01/14/17 08:05 Total Protein 6.5 g/dL (5.8-8.3) 01/16/17 05:00 Albumin 3.7 g/dL (3.0-4.8) 01/16/17 05:00 Globulin 2.8 gm/dL 01/16/17 05:00 Albumin/Globulin Ratio 1.3 (1.1-1.8) 01/16/17 05:00 Urine Color Yellow (YELLOW) 01/14/17 04:31 Urine Appearance Sl cloudy (CLEAR) 01/14/17 04:31 Urine pH 6.0 (4.7-8.0) 01/14/17 04:31 Ur Specific [place] 1.010 (1.005-1.035) 01/14/17 04:31 Urine Protein Negative mg/dL (<30 mg/dL) 01/14/17 04:31 Urine Glucose (UA) Negative mg/dL (NEGATIVE) 01/14/17 04:31 Urine Ketones Negative mg/dL (NEGATIVE) 01/14/17 04:31 Urine Blood Trace-intact (NEGATIVE) H 01/14/17 04:31 Urine Nitrate Negative (NEGATIVE) 01/14/17 04:31 Urine Bilirubin Negative (NEGATIVE) 01/14/17 04:31 Urine Urobilinogen 0.2 E.U./dL (<1 E.U./dL) 01/14/17 04:31 Ur Leukocyte Esterase Moderate Anne-Marie/uL (NEGATIVE) H 01/14/17 04:31 Urine RBC 1 - 3 /hpf (0-2) 01/14/17 04:31 Urine WBC 15 - 20 /hpf (0-6) 01/14/17 04:31 Ur Epithelial Cells 1 - 3 /hpf (0-5) 01/14/17 04:31 Urine Bacteria Few (NEG) 01/14/17 04:31 Attending/Attestation - Attestation I have personally seen and examined this patient.: Yes I have fully participated in the care of the patient.: Yes I have reviewed all pertinent clinical information, including history, physical exam and plan: Yes Notes (Text): I have seen and examined the patient at bedside. Agree with the above note with the following additions/ exceptions: This is 76 year old male with history of Ulcerative colitis on remicade admitted for UC flare and UTI. He was given rocephin and flagyl. Patient will be discharged home on cipro. His hemorrhoids have improved today. He was given prep H cream, anusol and proctosol. Continue Sitz bath. MRI abdomen result revealed no fistula or any other acute findings. CDiff negative. Patient is scheduled for remicade infusuon tomorrow. GI cleared the patient for discharge today. Upon discharge, will follow up with Dr Holliday. Dr Avery Lindsey
[2017-01-16 17:38] VITALS: BP 125/69; RESP 20; TEMP 98.2; O2SAT 96
== END 2017-01-16 20:44 | disposition home or self-care (01) | DRG 386 ==
LOC: ED 01:45 → ERH 05:22 → 5RNO 07:01 → OBSVTOIN 01-15 14:41
PROVIDERS: ADMIT Hospitalist; ATTEND Hospitalist
DX: K51.30 Ulcerative (chronic) rectosigmoiditis without complications (principal); N30.00 Acute cystitis without hematuria; J44.9 Chronic obstructive pulmonary disease, unspecified; K64.4 Residual hemorrhoidal skin tags; H35.30 Unspecified macular degeneration; K62.89 Other specified diseases of anus and rectum; Z87.891 Personal history of nicotine dependence

== ENCOUNTER 2017-04-04 06:05 | Day surgery (SDC) | payer MEDICARE ==
[2017-04-02 10:41] VITALS: BMI 22.4
[2017-04-04] MEDS ORDERED: cefTRIAXone 1 gm 1 GM/100 ML BAG IVPB STA (06:27)
[2017-04-04] MEDS ORDERED: cefTRIAXone (Rocephin) 1 gm Inj ONE (06:30)
[2017-04-04 06:52] LABS: BLOOD UREA NITROGEN 21 mg/dL (7-21); CALCIUM 9.6 mg/dL (8.4-10.5); CARBON DIOXIDE 27 mmol/L (21-33); CHLORIDE 107 mmol/L (98-107); GFR AFRICAN-AMERICAN > 60; GLUCOSE,RANDOM 84 mg/dL (70-110); POTASSIUM 3.9 mmol/L (3.6-5.0); SODIUM 145 mmol/L (132-148)
[2017-04-04 06:55] LABS: BASO # 0.01 K/mm3 (0.0-2.0); BASO % 0.2 % (0.0-3.0); EOS # 0.2 (0.0-0.7); EOS % 2.9 % (1.5-5.0); GRAN # 2.2 (1.4-6.5); GRAN % 40.5 % (50.0-68.0); HEMATOCRIT 40.7 % (42.0-52.0); LYMPH # 2.4 (1.2-3.4); LYMPH % 44.8 % (22.0-35.0); MEAN CELL VOLUME 94.7 fl (80.0-105.0); MEAN CORPUSCULAR HGB CONC 34.9 g/dl (31.0-37.0); MEAN PLATELET VOLUME 8.5 fl (7.0-11.0); MONO # 0.6 (0.1-0.6); MONO % 11.6 % (1.0-6.0); RED CELL DISTRIBUTION WIDTH 13.4 % (11.5-14.5); WHITE BLOOD COUNT 5.4 10^3/ul (4.5-11.0)
[2017-04-04] MEDS ORDERED: Lactated Ringer's 1,000 ML IV SCH (08:18)
[2017-04-04] MEDS ORDERED: Propofol 10 mg/ml Inj (20 ML) ONE (09:02)
[2017-04-04] MEDS ORDERED: Midazolam 2 MG/2 ML VIAL ONE (09:02)
[2017-04-04 11:10] VITALS: PULSE 56; TEMP 97.7; O2SAT 98
[2017-04-04 11:52] VITALS: BP 124/58; RESP 18
--- NOTE | 2017-04-04 15:27 | CARD ---
APPROVED REPORT EKG Measurement Heart [id number] <Conclusion> Normal sinus rhythm with sinus arrhythmia Normal ECG
== END 2017-04-04 12:15 | disposition home or self-care (01) ==
LOC: SDS 06:05
PROVIDERS: ATTEND Urology
DX: C61 Malignant neoplasm of prostate (principal)
CPT/HCPCS: 36415; 55700; 80048; 85025; 88305; 93005; J0696; J2001; J2250; J2405; J2704; J3010; J7120 ×2

== ENCOUNTER 2017-04-16 08:00 | Day surgery (SDC) | payer MEDICARE ==
[2017-04-02 10:41] VITALS: BMI 22.4
[2017-04-16] MEDS ORDERED: Lactated Ringer's 1,000 ML IV SCH (09:26)
[2017-04-16] MEDS ORDERED: Midazolam 2 MG/2 ML VIAL ONE (09:46)
[2017-04-16] MEDS ORDERED: Propofol 10 mg/ml Inj (20 ML) ONE (09:46)
[2017-04-16] MEDS ORDERED: Iohexol 240 (50 ml) ONE (10:48)
[2017-04-16] MEDS ORDERED: cefTRIAXone (Rocephin) 1 gm Inj ONE (10:48)
[2017-04-16] MEDS ORDERED: Oxycodone/Acetaminophen 5/325 mg Tab PO PRN (11:36)
[2017-04-16 11:55] VITALS: O2SAT 100
[2017-04-16 12:58] VITALS: BP 108/66; PULSE 63; RESP 20; TEMP 97.8
--- NOTE | 2017-04-16 13:26 | RAD ---
PROCEDURE: Retrograde pyelogram HISTORY: BILATERAL RETROGRADE PYELOGRAM COMPARISON: TECHNIQUE: Fluoroscopy was provided in the operating room. 3.1 seconds of fluoro time. Five images were submitted FINDINGS: There are no filling defects or abnormalities seen in either collecting system. There is an irregular contour of the bladder. The procedure was performed by Dr. Mcrae IMPRESSION: As above
--- NOTE | 2017-04-17 08:20 | HP ---
REASON FOR ADMISSION: Workup of hematuria. HISTORY OF PRESENT ILLNESS: Very pleasant gentleman, he is 76-year-old, he has elevated PSA, much voiding dysfunction. Irritative and obstructive complaints, and he is with an elevated PSA. Recently, diagnosed with a new onset of prostate cancer with a 3+4 as in 4+3 prostate adenocarcinoma, recent 3+4. His initial PSA was noted to be . We had discussed options, at that point we did an ultrasound of the prostate and also got a prostate biopsy and it came back positive in multiple course. I should also mention that in the interim from his initial workup till recently he has had a tremendous amount of bowel issues,and he has had a colon resection and is currently under the care of a doctor in . . Today, he is coming in for his cystoscopic evaluation to evaluate the prostate to make sure there is no other bladder abnormality, bladder stones, or blood, although unlikely bladder tumors, and in an effort to see what are options available. I discussed with the patient extensively the possibility for radiation versus surgery versus which is active surveillance. It is not my recommendation in his situation for active surveillance. I discussed that in general the Urology community does not operate on for radical prostatectomy even robotically in his age category but with exceptions there are times where it is very appropriate and may be beneficial in his case. I also discussed with the patient at that time getting a second and third opinions. He is planning to meet with the urologist at [place] where his surgery has been. He is also planning to meet with the radiation doctors. PAST MEDICAL AND SURGICAL HISTORY: The patient of . No history of LA or CVA. MEDICATIONS: See the chart. ALLERGIES: NO ALLERGIES. REVIEW OF SYSTEMS: As above. No weight loss, chest pain or the like. PHYSICAL EXAMINATION: GENERAL: He is a well nourished male, in no apparent distress. VITAL SIGNS: Within normal limits. LUNGS: Clear. HEART: Normal S1 and S2. ABDOMEN: Overall soft. GENITOURINARY: Normal phallus and no discharge. No testicular masses. RECTAL: There is 30 g prostate, relatively soft, no specific nodules appreciated. The remainder of the exam is otherwise remarkable. LABORATORY DATA: See chart. DIAGNOSES: 1. Prostate cancer Alexis 7. 2. Hematuria. 3. Significant irritative and voiding complaints. PLAN: For today is as follows. We are going to plan for a cysto, possible retrograde pyelogram, possible biopsy, we will see if there are any other abnormalities. We will also have upper tract imaging. We have this recently diagnosed prostate cancer. We discussed options, risks, benefits, and alternatives. The plan will be as follows: 1. Antibiotic prophylaxis. 2. Cysto and then further plans will follow. Stephen Mcrae MD
--- NOTE | 2017-04-18 02:02 | OP ---
PROCEDURE DATE: 04/16/2017 PREOPERATIVE DIAGNOSES: Hematuria, newly diagnosed prostate cancer, voiding dysfunction, decreased flow stream, irritative and obstructive urinary complaints, slow urinary stream and nocturia. POSTOPERATIVE DIAGNOSES: Hematuria, newly diagnosed prostate cancer, voiding dysfunction, decreased flow stream, irritative and obstructive urinary complaints, slow urinary stream and nocturia. No evidence of bladder malignancy, no evidence of stone disease. PROCEDURE: Cystoscopy, bilateral retrograde pyelogram. COMPLICATIONS: There were no complications. ESTIMATED BLOOD LOSS: Less than 10 mL FINDINGS: Normal anterior urethra. No strictures. 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 Multiple pictures were taken and saved and left with the chart. For further documentation see below. There were no bladder cancers. Retrograde pyelograms were within normal limits. Films were submitted for the radiologist to review, but no major abnormalities are noted. The patient is basically in retention with the bladder grossly distended. 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 There is clear efflux from both ureteral orifice. INDICATIONS: See history and physical. Very pleasant gentleman who I have known from quite some time. We recently did ultrasound of prostate, ultrasound-guided biopsy, we found the patient to have prostate cancer. While we were undergoing this workup, the patient has had colon resection for underlying colitis. He is under the care of a doctor in [facility] in [facility]. In fact, he is going to be seeing a urologist there as well. We had discussed the options with him for this newly diagnosed prostate cancer, he is currently 76 or 77 years old. We discussed surgical intervention, we discussed radiation, we discussed active surveillance. After weighing all the different options, the patient is getting second opinion, he is also going to see the radiation doctor and seeing an another surgeon. I discussed with him robotic, open, discussed in general age limits. We discussed various options. In terms of his ileostomy and closure and his rectum and his spasms, this is also being evaluated. Today's procedure is to evaluate some of his irritative and obstructive complaints, presumably the hematuria is secondary to the prostate, but we will need to rule-out any transitional cell carcinoma of the bladder, also any other underlying bladder pathology, stones, etc,. So after discussing the options with the patient, risks, benefit and alternatives, we decided to do the procedure here in [facility]. The patient is brought in for cysto and retrograde, possible biopsy and fulguration of the verumontanum. PROCEDURE: After obtaining informed consent, the patient was placed on the table. Routine monitor was placed. Time-out was called to confirm the patient's positioning, etc. The patient was given antibiotic prophylaxis. We introduced the cystoscope via urethra. Normal anterior urethra is noted. No strictures found. The verumontanum is essentially minimally occlusive if at all. Only about 1 to 2 cm verumontanum was identified. Clear efflux noted. It was also noted that the patient is really in retention and the bladder is somewhat distended, prior to infusing fluid, although likely. The bladder is stretched. Multiple pictures were taken showing stretched fibers. Even when we emptied the bladder, there is cellulose and diverticulum and multiple pictures were taken. We did retrograde pyelogram, and there is no hydronephrosis noted. The bladder was emptied, pictures were taken again, cystoscope was removed. Rectal exam as previously noted is really relatively soft, 20-30 g, but soft, smooth, no specific nodules. The patient tolerated the procedure without complication. ADDENDUM: We will discuss the second opinion as encouraged by me, In fact I previously discussed this with the patient and then other options, surgical intervention if possible. I explained standard treatment for the patient's with prostate cancer. We discussed options including radiation, including active surveillance, including open surgery, robotic surgery, open radical prostatectomy verses robotic. We discussed side effects, incontinence, retention, bladder neck contractures, erectile dysfunction, etc,. We discussed all these things. Both in terms of radiation and/or surgery (I also discussed other options with the patient but my recommendation is to go get a second opinion and then we could discuss further), but I do think the patient would be amenable to surgical resection other than the fact of age. I discussed this with him at length that there are still times where even at his age that a surgical intervention is appropriate especially given his recent colon resection and his surgical plan there as well. So further plans will follow. Stephen Mcrae MD
== END 2017-04-16 15:15 | disposition home or self-care (01) ==
LOC: SDS 08:00
PROVIDERS: ATTEND Urology
DX: C61 Malignant neoplasm of prostate (principal); R31.9 Hematuria, unspecified
CPT/HCPCS: 52005; 74420; C1758; J0696; J2001; J2250; J2405; J2704; J2765; J3010; J7120 ×2; Q9966

== ENCOUNTER 2017-05-16 18:09 | Emergency (ER) | payer MEDICARE ==
[2017-05-16 18:09] VITALS: BMI 22.4
[2017-05-16 18:49] VITALS: BP 145/81; PULSE 96; RESP 18; TEMP 98.8; O2SAT 98
[2017-05-16] MEDS ORDERED: Tmp-Smz 800 mg-160 mg DS Tab PO STA ×2 (19:08→19:25)
--- NOTE | 2017-05-16 19:19 | ED PDOC ---
Arrival/HPI - General Chief Complaint: Lower Extremity Problem/Injury Time Seen by Provider: 05/16/17 18:52 Historian: Patient - History of Present Illness Narrative History of Present Illness (Text): 05/16/17 19:15 A 76 year old male with no significant past medical history presents to the emergency department with right foot swelling since yesterday. The patient denies fevers, chills, headache, dizziness, chest pain, shortness of breath, dyspnea on exertion, cough, abdominal pain, nausea, vomiting, diarrhea, back pain, neck pain, urinary/bowel changes, trauma/ injury or any other complaint. Time/Duration: Prior to Arrival Symptom Onset: Sudden Symptom Course: Unchanged Activities at Onset: Rest, Light Context: Home Past Medical History - Provider Review Nursing Documentation Reviewed: Yes - Infectious Disease Hx of Infectious Diseases: None - Tetanus Immunization Tetanus Immunization: Unknown - Cardiac Hx Pacemaker: No - Pulmonary Hx Respiratory Disorders: No Hx Asthma: No Hx Bronchitis: Yes Hx Chronic Obstructive Pulmonary Disease (COPD): Yes Hx Emphysema: No Hx Pneumonia: No Hx Respiratory Aspiration: No Hx Respiratory Tract Infection: No Hx Sleep Apnea: No Hx Tuberculosis: No - Neurological Hx Paralysis: No - HEENT Hx HEENT Disorder: No Hx Blind: No Hx Cataracts: Yes Hx Deafness: No Hx Difficulty Chewing: No Hx Epistaxis: No Hx Glaucoma: No Hx Macular Degeneration: Yes - Renal Hx Renal Disorder: No Hx Dialysis: No Hx Kidney Stones: No Hx Neurogenic Bladder: No Hx Pyelonephritis: No Hx Renal Cancer: No Hx Renal Failure: No - Endocrine/Metabolic Hx Endocrine Disorders: No Hx Adrenal Cancer: No Hx Diabetes Insipidus: No Hx Diabetes Mellitus Type 1: No Hx Diabetes Mellitus Type 2: No Hx Hyperthyroidism: No Hx Hypothyroidism: No Hx Systemic Lupus Erythematosus: No - Hematological/Oncological Hx Blood Transfusions: No Hx Blood Transfusion Reaction: No - Integumentary Hx Dermatological Disorder: No Hx Basal Cell Carcinoma: No Hx Eczema: No Hx Melanoma: No Hx Psoriasis: No Hx Squamous Cell Carcinoma: No - Musculoskeletal/Rheumatological Hx Musculoskeletal Disorders: No - Gastrointestinal Hx Colostomy: Yes - Genitourinary/Gynecological Hx Prostate Problems: Yes - Psychiatric Hx Substance Use: No - Surgical History Other/Comment: colostomy - Anesthesia Hx Anesthesia Reactions: Yes (NAUSEA/VOMITING) Hx Malignant Hyperthermia: No - Suicidal Assessment Feels Threatened In Home Enviroment: No Family/Social History - Physician Review Nursing Documentation Reviewed: Yes Family/Social History: No Known Family HX Smoking Status: Former Smoker Hx Alcohol Use: No Hx Substance Use: No Hx Substance Use Treatment: No Allergies/Home Meds Allergies/Adverse Reactions: Allergies No Known Allergies Allergy (Verified 05/16/17 18:41) Review of Systems - Physician Review All systems were reviewed & negative as marked: Yes - Review of Systems Constitutional: absent: Fevers, Night Sweats Respiratory: absent: SOB, Cough Cardiovascular: absent: Chest Pain, LUONG Gastrointestinal: absent: Abdominal Pain, Stool Changes, Diarrhea, Nausea, Vomiting Genitourinary Male: absent: Urinary Output Changes Musculoskeletal: absent: Back Pain, Neck Pain Neurological: absent: Headache, Dizziness Physical Exam Vital Signs Reviewed: Yes Vital Signs Temp Pulse Resp BP Pulse Ox 05/16/17 18:36 98.8 F 96 H 18 145/81 98 Temperature: Afebrile Blood Pressure: Normal Pulse: Tachycardic Respiratory Rate: Normal Appearance: Positive for: Well-Appearing, Non-Toxic, Comfortable Pain Distress: None Mental Status: Positive for: Alert and Oriented X 3 - Systems Exam Head: Present: Atraumatic, Normocephalic Pupils: Present: PERRL Extroacular Muscles: Present: EOMI Conjunctiva: Present: Normal Mouth: Present: Moist Mucous Membranes Neck: Present: Normal Range of Motion Respiratory/Chest: Present: Clear to Auscultation, Good Air Exchange. No: Respiratory Distress, Accessory Muscle Use Cardiovascular: Present: Regular Rate and Rhythm, Normal S1, S2. No: Murmurs Abdomen: Present: Normal Bowel Sounds. No: Tenderness, Distention, Peritoneal Signs Back: Present: Normal Inspection Upper Extremity: Present: Normal Inspection. No: Cyanosis, Edema Lower Extremity: Present: Erythema (3-4 cm area of erythema on right foot.) Neurological: Present: GCS=15, CN II-XII Intact, Speech Normal Skin: Present: Warm, Dry, Normal Color. No: Rashes Psychiatric: Present: Alert, Oriented x 3, Normal Insight, Normal Concentration Medical Decision Making ED Course and Treatment: 05/16/17 19:24 Impression: A 76 year old male presents with right foot swelling since yesterday. Plan: -- Bactrim -- Reassess and disposition Progress Notes:cellulits. bedside us shows no drainable collection. advised pt to be eval with labs, iv antibiotics possible admission. pt declines. 05/16/17 19:26 Leaving Against Medical Advice (AMA): The patient is choosing to leave against medical advice. I have personally explained to the patient that choosing to do so may result in permanent bodily harm or . I have discussed at great length that without further evaluation and monitoring there may be unforeseen circumstances and/or deterioration causing permanent bodily harm or as a result of their choice. The patient is alert, oriented, and shows the mental capacity to make clear decisions regarding the patients health care at this time. The patient continues to wish to leave against medical advice. The patient has been advised that they should return to the emergency room immediately if they change their mind at any time, or if their condition begins to change or worsen in any way.. 05/16/17 21:54 - Medication Orders Current Medication Orders: Discontinued Medications Trimethoprim/Sulfamethoxazole (Bactrim Ds Tab) 1 tab PO STAT STA PRN Reason: Protocol Stop: 05/16/17 19:09 Trimethoprim/Sulfamethoxazole (Bactrim Ds Tab) 1 tab PO STAT STA PRN Reason: Protocol Stop: 05/16/17 19:26 Last Admin: 05/16/17 19:53 Dose: 1 tab - Scribe Statement The provider has reviewed the documentation as recorded by the Kortneyibe Gabi Cramer Provider Scribe Attestation: All medical record entries made by the Scribe were at my direction and personally dictated by me. I have reviewed the chart and agree that the record accurately reflects my personal performance of the history, physical exam, medical decision making, and the department course for this patient. I have also personally directed, reviewed, and agree with the discharge instructions and disposition. Disposition/Present on Arrival - Present on Arrival Any Indicators Present on Arrival: No History of DVT/PE: No History of Uncontrolled Diabetes: No Urinary Catheter: No History of Decub. Ulcer: No History Surgical Site Infection Following: None - Disposition Have Diagnosis and Disposition been Completed?: Yes Diagnosis: Cellulitis Disposition: AGAINST MEDICAL ADVICE Disposition Time: 08:00 Condition: UNKNOWN Discharge Instructions (ExitCare): Cellulitis (ED) Additional Instructions: please follow up with your doctor/specialist. you are declining iv antibiotics, labs. you are able to return at any point with any concern. Prescriptions: Sulfamethoxazole/Trimethoprim [Bactrim DS 800 mg-160 mg] 1 tab PO BID #20 tab Referrals: Anil Albarran DPM [Staff Provider] - Follow up with primary Forms: [employer] (Nepali)
== END 2017-05-16 19:54 | disposition left against medical advice (07) ==
LOC: ED 18:09
DX: L03.115 Cellulitis of right lower limb (principal)

== ENCOUNTER 2017-05-18 13:19 | Inpatient (IN) | payer MEDICARE ==
[2017-05-18 13:29] VITALS: BMI 24.0
[2017-05-18] MEDS ORDERED: cefTRIAXone 1 gm 1 GM/100 ML BAG IVPB STA (13:32)
--- NOTE | 2017-05-18 13:38 | ED PDOC ---
Arrival/HPI - General Chief Complaint: Lower Extremity Problem/Injury Time Seen by Provider: 05/18/17 13:24 Historian: Patient, Spouse - History of Present Illness Time/Duration: Other (5 days) Symptom Course: Worsening Severity Level: Moderate Associated Symptoms (Text): 05/18/17 13:35 Patient reports that approximately 5 days prior to arrival he had some minor foot trauma when he stubbed his right big toe MTP joint against the side of his bed. It then became painful red swollen and tender. He was seen in the emergency department 2 days ago and refused admission at that time. He was diagnosed with cellulitis and begun on Bactrim DS. He has been taking the antibiotic. The emergency department notes from 2 days ago report a 3-4 cm area of erythema over the right big toe MTP joint. It is now much larger swollen erythematous tender and warm. He has difficulty weightbearing. No fever or chills. No streaking. Past Medical History - Infectious Disease Hx of Infectious Diseases: None - Tetanus Immunization Tetanus Immunization: Unknown - Cardiac Hx Pacemaker: No - Pulmonary Hx Respiratory Disorders: No Hx Asthma: No Hx Bronchitis: Yes Hx Chronic Obstructive Pulmonary Disease (COPD): Yes Hx Emphysema: No Hx Pneumonia: No Hx Respiratory Aspiration: No Hx Respiratory Tract Infection: No Hx Sleep Apnea: No Hx Tuberculosis: No - Neurological Hx Paralysis: No - HEENT Hx HEENT Disorder: No Hx Blind: No Hx Cataracts: Yes Hx Deafness: No Hx Difficulty Chewing: No Hx Epistaxis: No Hx Glaucoma: No Hx Macular Degeneration: Yes - Renal Hx Renal Disorder: No Hx Dialysis: No Hx Kidney Stones: No Hx Neurogenic Bladder: No Hx Pyelonephritis: No Hx Renal Cancer: No Hx Renal Failure: No - Endocrine/Metabolic Hx Endocrine Disorders: No Hx Adrenal Cancer: No Hx Diabetes Insipidus: No Hx Diabetes Mellitus Type 1: No Hx Diabetes Mellitus Type 2: No Hx Hyperthyroidism: No Hx Hypothyroidism: No Hx Systemic Lupus Erythematosus: No - Hematological/Oncological Hx Blood Transfusions: No Hx Blood Transfusion Reaction: No - Integumentary Hx Dermatological Disorder: No Hx Basal Cell Carcinoma: No Hx Eczema: No Hx Melanoma: No Hx Psoriasis: No Hx Squamous Cell Carcinoma: No - Musculoskeletal/Rheumatological Hx Musculoskeletal Disorders: No - Gastrointestinal Hx Colostomy: No - Genitourinary/Gynecological Hx Prostate Problems: Yes - Psychiatric Hx Emotional Abuse: No Hx Physical Abuse: No Hx Substance Use: No - Surgical History Other/Comment: colostomy - Anesthesia Hx Anesthesia Reactions: Yes (NAUSEA/VOMITING) Hx Malignant Hyperthermia: No - Suicidal Assessment Feels Threatened In Home Enviroment: No Family/Social History - Physician Review Nursing Documentation Reviewed: Yes Family/Social History: Unknown Family HX Smoking Status: Former Smoker Hx Alcohol Use: No Hx Substance Use: No Hx Substance Use Treatment: No Allergies/Home Meds Allergies/Adverse Reactions: Allergies No Known Allergies Allergy (Verified 05/18/17 13:29) Home Medications: Home Meds Medication Instructions Recorded Confirmed Arformoterol [Brovana] 15 mcg IH DAILY 05/18/17 05/18/17 Budesonide [Pulmicort Respules] 0.5 mg IH DAILY 05/18/17 05/18/17 Tamsulosin [Flomax] 0.4 mg PO DAILY 05/18/17 05/18/17 Review of Systems - Physician Review All systems were reviewed & negative as marked: Yes - Review of Systems Constitutional: absent: Fatigue, Fevers Respiratory: Normal Cardiovascular: Normal Gastrointestinal: Normal Genitourinary Male: Normal Skin: Cellulitis Neurological: Normal Physical Exam Vital Signs Temp Pulse Resp BP Pulse Ox 05/18/17 13:40 98.6 F 94 H 18 148/73 98 Temperature: Afebrile Blood Pressure: Normal Pulse: Regular Respiratory Rate: Normal Appearance: Positive for: Well-Appearing, Non-Toxic, Uncomfortable Pain Distress: Mild Mental Status: Positive for: Alert and Oriented X 3 - Systems Exam Head: Present: Atraumatic, Normocephalic Pupils: Present: PERRL Extroacular Muscles: Present: EOMI Conjunctiva: Present: Normal Mouth: Present: Moist Mucous Membranes Pharnyx: No: ERYTHEMA, EXUDATE, TONSILS ENLARGED Neck: Present: Normal Range of Motion Respiratory/Chest: Present: Clear to Auscultation, Good Air Exchange, Decreased Breath Sounds. No: Respiratory Distress, Accessory Muscle Use Cardiovascular: Present: Regular Rate and Rhythm, Normal S1, S2. No: Murmurs Abdomen: Present: Normal Bowel Sounds. No: Tenderness, Distention, Peritoneal Signs, Rebound, Guarding Back: Present: Normal Inspection Upper Extremity: Present: Normal Inspection. No: Cyanosis, Edema Lower Extremity: Present: Normal ROM, Tenderness, Swelling, Erythema, Other ( Right big toe MTP erythema tenderness and warmth. Range of motion is not painful. The cellulitis has extended across the entire foot.). No: Deformity Neurological: Present: GCS=15, CN II-XII Intact, Speech Normal, Motor Func Grossly Intact Skin: Present: Other (right foot cellulitis as above) Psychiatric: Present: Alert, Oriented x 3, Normal Insight, Normal Concentration Medical Decision Making ED Course and Treatment: 05/18/17 14:30 EKG shows normal sinus rhythm rate approximately [address] or T-wave changes - Lab Interpretations Lab Results: 05/18/17 14:00 05/18/17 14:00 Lab Results 05/18/17 14:00: Sodium 142, Chloride 100, Potassium 4.0, Carbon Dioxide 29, Anion Gap 17, BUN 14, Creatinine 1.1, Est GFR ( Amer) > 60, Est GFR (Non- Af Amer) > 60, Random Glucose 111 H, Uric Acid 5.9, Calcium 9.5, Total Bilirubin 0.5, AST 32, ALT 41, Alkaline Phosphatase 63, Lactate Dehydrogenase 344, Total Creatine Kinase 90, Troponin I < 0.01, Total Protein 7.7, Albumin 4.6 , Globulin 3.1, Albumin/Globulin Ratio 1.5 05/18/17 14:00: pO2 59 H, VBG pH 7.35, VBG pCO2 51.0, VBG HCO3 28.2 H, VBG Total CO2 29.8 H, VBG O2 Sat (Calc) 93.6 H, VBG Base Excess 1.7, VBG Potassium 3.9, Sodium 138.0, Chloride 104.0, Glucose 108, Lactate 1.8, FiO2 21.0, Venous Blood Potassium 3.9 05/18/17 14:00: PT 10.7, INR 0.99, APTT 26.5 05/18/17 14:00: WBC 6.2, RBC 4.33, Hgb 14.3, Hct 41.2 L, MCV 95.2, MCH 33.0, MCHC 34.7, RDW 13.0, Plt Count 170, MPV 8.4, Gran % 59.4, Lymph % (Auto) 29.9, [place] % (Auto) 9.4 H, Eos % (Auto) 1.0 L, Baso % (Auto) 0.3, Gran # 3.65, Lymph # 1.8, [place] # 0.6, Eos # 0.1, Baso # 0.02 - RAD Interpretation Radiology Orders: 05/18/17 13:31 CHEST TWO VIEWS (PA/LAT) [RAD] Stat FOOT RIGHT 3 VIEWS ROUTINE [RAD] Stat Chest 2 view shows no infiltrate effusion or cardiomegaly. Right foot 3 view shows no fracture dislocation or osteomyelitis. Joint Supervisor: ED Physician - Medication Orders Current Medication Orders: Discontinued Medications Ceftriaxone Sodium (Rocephin 1 Gram Ivpb) 1 gm in 100 mls @ 200 mls/hr IVPB STAT STA PRN Reason: Protocol Stop: 05/18/17 14:01 Last Admin: 05/18/17 14:10 Dose: 200 mls/hr eMAR Start Stop Document 05/18/17 14:10 (Rec: 05/18/17 14:10 MR [id number]) Intravenous Solution Start Date 05/18/17 Start Time 14:10 End Date 05/18/17 End time 14:40 Total Infusion Time 30 Ketorolac Tromethamine (Toradol) 15 mg IVP ONCE ONE Stop: 05/18/17 13:35 Last Admin: 05/18/17 14:09 Dose: 15 mg MAR Pain Assessment Document 05/18/17 14:09 MR (Rec: 05/18/17 14:10 MR [id number]) Pain Reassessment Is this a pain reassessment? No Sleep Is patient sleeping during reassessment? No Presence of Pain Presence of Pain Yes Pain Scale Used Pain Scale Used Numeric Location Left, Right or Bilateral Right Pain Location Body Site Foot Description Description Sharp Intensity of Pain at present 8 Pain Behavior Withdrawal from Touch Alleviating Factors/Management Medication Techniques Alleviating Factors Medication IVP Administration Document 05/18/17 14:09 (Rec: 05/18/17 14:10 MR [id number]) Charges for Administration # of IVP Administrations 1 Disposition/Present on Arrival - Present on Arrival Any Indicators Present on Arrival: No History of DVT/PE: No History of Uncontrolled Diabetes: No Urinary Catheter: No History of Decub. Ulcer: No History Surgical Site Infection Following: None - Disposition Have Diagnosis and Disposition been Completed?: Yes Diagnosis: Cellulitis Disposition: HOSPITALIZED Disposition Time: 15:16 Patient Plan: Admission Condition: GOOD Discharge Instructions (ExitCare): Cellulitis (ED) Referrals: Mutterperl,Sung, MD [Primary Care Provider] - Follow up with primary Forms: [employer] (Portuguese)
[2017-05-18 14:25] LABS: VENOUS BLOOD GAS BASE EXCESS 1.7 mmol/L (0.0-2.0); VENOUS BLOOD PH 7.35 (7.32-7.43)
[2017-05-18 14:27] LABS: BASO # 0.02 K/mm3 (0.0-2.0); BASO % 0.3 % (0.0-3.0); EOS # 0.1 (0.0-0.7); GRAN # 3.65 (1.4-6.5); GRAN % 59.4 % (50.0-68.0); HEMATOCRIT 41.2 % (42.0-52.0); LYMPH # 1.8 (1.2-3.4); LYMPH % 29.9 % (22.0-35.0); MEAN CELL VOLUME 95.2 fl (80.0-105.0); MEAN CORPUSCULAR HGB CONC 34.7 g/dl (31.0-37.0); MEAN PLATELET VOLUME 8.4 fl (7.0-11.0); MONO # 0.6 (0.1-0.6); MONO % 9.4 % (1.0-6.0); WHITE BLOOD COUNT 6.2 10^3/ul (4.5-11.0)
[2017-05-18 14:32] LABS: ALB/GLOB RATIO 1.5 (1.1-1.8); ALKALINE PHOSPHATASE 63 U/L (38-126); ALT/SGPT 41 U/L (7-56); AST/SGOT 32 U/L (17-59); BILIRUBIN,TOTAL 0.5 mg/dL (0.2-1.3); BLOOD UREA NITROGEN 14 mg/dL (7-21); CALCIUM 9.5 mg/dL (8.4-10.5); CARBON DIOXIDE 29 mmol/L (21-33); CHLORIDE 100 mmol/L (98-107); GFR AFRICAN-AMERICAN > 60; GLUCOSE,RANDOM 111 mg/dL (70-110); SODIUM 142 mmol/L (132-148); TOTAL PROTEIN 7.7 g/dL (5.8-8.3); URIC ACID 5.9 mg/dL (3.5-8.5)
[2017-05-18 14:33] LABS: INR 0.99 (0.93-1.08); PARTIAL THROMBOPLASTIN TIME 26.5 Seconds (23.7-30.8)
[2017-05-18 14:47] LABS: TROPONIN I < 0.01 ng/mL
--- NOTE | 2017-05-18 16:18 | RAD ---
PROCEDURE: Right Foot Radiographs. HISTORY: swelling COMPARISON: None. FINDINGS: BONES: Normal. No fracture. JOINTS: Normal. SOFT TISSUES: Normal. OTHER FINDINGS: None. IMPRESSION: No acute findings related to/accounting for the clinical presentation. Concordant results with the preliminary interpretation rendered by the emergency department physician procedure.
--- NOTE | 2017-05-18 16:19 | RAD ---
HISTORY: Admission COMPARISON: 10/01/2016 TECHNIQUE: Chest PA and lateral FINDINGS: LUNGS: No active pulmonary disease. PLEURA: No significant pleural effusion identified. No pneumothorax apparent. CARDIOVASCULAR: No radiographic findings to suggest acute or significant cardiovascular disease. OSSEOUS STRUCTURES: No significant abnormalities. VISUALIZED UPPER ABDOMEN: Normal. OTHER FINDINGS: None. IMPRESSION: No active disease. No significant interval change compared to the prior examination(s). Concordant results with the preliminary interpretation rendered by the emergency department physician procedure.
[2017-05-18 16:34] VITALS: RESP 16
[2017-05-18] MEDS: Arformoterol 15 mcg/2 ml Inh Sol IH SCH (16:38)
[2017-05-18] MEDS: Budesonide 0.5 mg/2 ml Inhal Susp UD IH SCH (16:38)
--- NOTE | 2017-05-18 17:54 | CP.PCM.HP ---
History of Present Illness - History of Present Illness History of Present Illness: This is a 76 year old male with a past medical history of COPD, prostate cancer , Ulceritis colitis(s/p total colectomy),BPH, who presents to the emergency department for right toe pain since Friday. The patient reports that night while coming back from the restroom he stubbed his toe on his bed frame. The patient awoke and noticed that it was red, swollen and warm to touch. The patient describes the pain as dull with no radiation and rates the pain a 6/10 in severity. The patient denies any chest pain, shortness of breath, nausea, vomiting, changes in vision, constipation, diarrhea, sore throat, fevers, chills , or any other complaints. PMD: Dr. Allison Psurgical hx: Total colectomy Meds: Flomax, Budesonide, Lovana, Preservision Allergies: NKDA Social hx: Denies smoking or alcohol usage. Denies illicit drugs Family hx: non-contributory Present on Admission - Present on Admission Any Indicators Present on Admission: No Review of Systems - Constitutional Constitutional: As Per HPI - EENT Eyes: As Per HPI Ears: As Per HPI Nose/Mouth/Throat: As Per HPI - Cardiovascular Cardiovascular: As Per HPI - Respiratory Respiratory: As Per HPI - Gastrointestinal Gastrointestinal: As Per HPI - Genitourinary Genitourinary: As Per HPI - Musculoskeletal Musculoskeletal: As Per HPI - Integumentary Integumentary: As Per HPI - Neurological Neurological: As Per HPI - Psychiatric Psychiatric: As Per HPI - Endocrine Endocrine: As Per HPI Past Patient History - Infectious Disease Hx of Infectious Diseases: None - Tetanus Immunizations Tetanus Immunization: Unknown - Past Medical History & Family History Past Medical History?: No - Past Social History Smoking Status: Former Smoker - CARDIAC Hx Pacemaker: No - PULMONARY Hx Respiratory Disorders: No Hx Asthma: No Hx Bronchitis: Yes Hx Chronic Obstructive Pulmonary Disease (COPD): Yes Hx Emphysema: No Hx Pneumonia: No Hx Respiratory Aspiration: No Hx Respiratory Tract Infection: No Hx Sleep Apnea: No Hx Tuberculosis: No - NEUROLOGICAL Hx Neurological Disorder: No Hx Alzheimer's Disease: No HX Cerebrovascular Accident: No Hx Dementia: No Hx Dizziness: No Hx Meningitis: No Hx Migraine: No Hx Parkinson's Disease: No Hx Seizures: No Hx Transient Ischemic Attacks (TIA): No - HEENT Hx HEENT Problems: No Hx Blind: No Hx Cataracts: Yes Hx Deafness: No Hx Difficulty Chewing: No Hx Epistaxis: No Hx Glaucoma: No Hx Macular Degeneration: Yes - RENAL Hx Chronic Kidney Disease: No Hx Dialysis: No Hx Kidney Stones: No Hx Neurogenic Bladder: No Hx Pyelonephritis: No Hx Renal (Kidney) Cancer: No Hx Renal Failure: No - ENDOCRINE/METABOLIC Hx Endocrine Disorders: No Hx Adrenal Cancer: No Hx Diabetes Insipidus: No Hx Diabetes Mellitus Type 1: No Hx Diabetes Mellitus Type 2: No Hx Hyperthyroidism: No Hx Hypothyroidism: No Hx Systemic Lupus Erythematosus: No - HEMATOLOGICAL/ONCOLOGICAL Hx Blood Disorders: No Hx AIDS: No Hx Anemia: No Hx Cancer: No Hx Chemotherapy: No Hx Cirrhosis: No Hx Hepatitis A: No Hx Hepatitis B: No Hx Hepatitis C: No Hx Human Immunodeficiency Virus (HIV): No Hx Metastesis: No Hx Shingles: No Hx Unexplained Bleeding: No - INTEGUMENTARY Hx Dermatological Problems: No Hx Basil Cell: No Hx Eczema: No Hx Melanoma: No Hx Psoriasis: No Hx Squamous Cell: No - MUSCULOSKELETAL/RHEUMATOLOGICAL Hx Falls: No - GASTROINTESTINAL Hx Colostomy: Yes - GENITOURINARY/GYNECOLOGICAL Hx Prostate Problems: Yes - PSYCHIATRIC Hx Emotional Abuse: No Hx Physical Abuse: No - SURGICAL HISTORY Other/Comment: colostomy - ANESTHESIA Hx Anesthesia Reactions: Yes (NAUSEA/VOMITING) Hx Malignant Hyperthermia: No Meds Allergies/Adverse Reactions: Allergies Allergy/AdvReac Type Severity Reaction Status Date / Time No Known Allergies Allergy Verified 05/18/17 13:29 Physical Exam - Head Exam Head Exam: ATRAUMATIC, NORMAL INSPECTION, NORMOCEPHALIC - Eye Exam Eye Exam: EOMI, Normal appearance, PERRL. absent: Periorbital tenderness Pupil Exam: NORMAL ACCOMODATION, PERRL. absent: Irregular, Unequal - ENT Exam ENT Exam: Mucous Membranes Moist, Normal Exam, Normal Oropharynx. absent: TM's Normal Bilaterally - Neck Exam Neck exam: Positive for: Normal Inspection - Respiratory Exam Respiratory Exam: Clear to Auscultation Bilateral, NORMAL BREATHING PATTERN. absent: Accessory Muscle Use, Chest Wall Tenderness, Respiratory Distress - Cardiovascular Exam Cardiovascular Exam: REGULAR RHYTHM, RRR, +S1, +S2. absent: Gallop, Rubs - GI/Abdominal Exam GI & Abdominal Exam: Normal Bowel Sounds, Soft. absent: Tenderness - Extremities Exam Additional comments: Right hallux/inferior to hallux is a red, swollen. - Back Exam Back exam: NORMAL INSPECTION. absent: CVA tenderness (L), CVA tenderness (R), paraspinal tenderness - Neurological Exam Neurological exam: Alert, CN II-XII Intact, Normal Gait, Oriented x3 - Psychiatric Exam Psychiatric exam: Normal Affect, Normal Mood - Skin Skin Exam: Dry, Intact Results - Vital Signs Recent Vital Signs: Last Vital Signs Temp 98.6 F 05/18/17 13:40 Pulse 67 05/18/17 17:33 Resp 16 05/18/17 17:33 BP 112/62 05/18/17 17:33 Pulse Ox 100 05/18/17 16:34 - Labs Result Diagrams: 05/18/17 14:00 05/18/17 14:00 Assessment & Plan - Assessment and Plan (Free Text) Assessment: 1. Cellulitis -Patient on exam has a swollen red hallux. Afebrile and no leukocytosis. -Patient received IV Ceftriaxone in E.D. -Switched to IV Unasyn 3 gm Q6H. -Will continue to monitor. 2.BPH -Start home meds. 3. Prostate cancer -Patient recently diagnosed. Expected to have surgery at [facility] in June. 4.Ulcerative colitis -Patient had total colectomy done February 12. -Currently on no medications. -No intervention at this time. 5.COPD -Start home meds. DVT PPX -Lovenox 40mg Daily.
[2017-05-18] MEDS: Enoxaparin 40 mg Syringe SC SCH (18:32)
--- NOTE | 2017-05-18 19:01 | CARD ---
APPROVED REPORT EKG Measurement Heart [id number] <Conclusion> Normal sinus rhythm with sinus arrhythmia Normal ECG
[2017-05-18] MEDS: Ampicillin/Sulbactam 3 GM in Sodium Chloride 0.9% 100 ML IVPB SCH (23:12)
[2017-05-19] MEDS: Ampicillin/Sulbactam 3 GM in Sodium Chloride 0.9% 100 ML IVPB SCH ×2 (05:18→11:39)
[2017-05-19 07:15] LABS: BASO # 0.01 K/mm3 (0.0-2.0); BASO % 0.2 % (0.0-3.0); EOS # 0.1 (0.0-0.7); EOS % 1.7 % (1.5-5.0); GRAN # 4.1 (1.4-6.5); GRAN % 63.4 % (50.0-68.0); HEMATOCRIT 39.3 % (42.0-52.0); LYMPH # 1.5 (1.2-3.4); LYMPH % 23.2 % (22.0-35.0); MEAN CELL VOLUME 95.2 fl (80.0-105.0); MEAN CORPUSCULAR HEMOGLOBIN 32.4 pg (25.0-35.0); MEAN CORPUSCULAR HGB CONC 34.1 g/dl (31.0-37.0); MEAN PLATELET VOLUME 8.3 fl (7.0-11.0); MONO # 0.7 (0.1-0.6); MONO % 11.5 % (1.0-6.0); RED CELL DISTRIBUTION WIDTH 13.3 % (11.5-14.5); WHITE BLOOD COUNT 6.5 10^3/ul (4.5-11.0)
[2017-05-19] MEDS: Arformoterol 15 mcg/2 ml Inh Sol IH SCH (07:20)
[2017-05-19] MEDS: Budesonide 0.5 mg/2 ml Inhal Susp UD IH SCH (07:20)
[2017-05-19 07:37] LABS: ALB/GLOB RATIO 1.4 (1.1-1.8); ALKALINE PHOSPHATASE 59 U/L (38-126); ALT/SGPT 43 U/L (7-56); AST/SGOT 24 U/L (17-59); BILIRUBIN,TOTAL 0.7 mg/dL (0.2-1.3); BLOOD UREA NITROGEN 22 mg/dL (7-21); CALCIUM 9.1 mg/dL (8.4-10.5); CARBON DIOXIDE 27 mmol/L (21-33); CHLORIDE 103 mmol/L (95-110); GFR AFRICAN-AMERICAN > 60; GLUCOSE,RANDOM 88 mg/dL (70-110); POTASSIUM 4.8 mmol/L (3.6-5.0); SODIUM 142 mmol/L (132-148); TOTAL PROTEIN 6.8 g/dL (5.8-8.3)
[2017-05-19 07:56] VITALS: BP 108/61; PULSE 61; TEMP 98; O2SAT 97
[2017-05-19] MEDS: Enoxaparin 40 mg Syringe SC SCH (10:15)
--- NOTE | 2017-05-19 20:03 | CP.PCM.DIS ---
<HelenaBelgican - Last Filed: 05/19/17 20:11> Provider - Provider Date of Admission: 05/18/17 15:15 Attending physician: Arnulfo Diaz MD Primary care physician: Sung Cooper MD Time Spent in preparation of Discharge (in minutes): 45 Hospital Course - Lab Results Lab Results: Most Recent Lab Values WBC 6.5 10^3/ul (4.5-11.0) 05/19/17 06:45 RBC 4.13 10^6/uL (3.5-6.1) 05/19/17 06:45 Hgb 13.4 g/dL (14.0-18.0) L 05/19/17 06:45 Hct 39.3 % (42.0-52.0) L 05/19/17 06:45 MCV 95.2 fl (80.0-105.0) 05/19/17 06:45 MCH 32.4 pg (25.0-35.0) 05/19/17 06:45 MCHC 34.1 g/dl (31.0-37.0) 05/19/17 06:45 RDW 13.3 % (11.5-14.5) 05/19/17 06:45 Plt Count 146 10^3/uL (120.0-450.0) 05/19/17 06:45 MPV 8.3 fl (7.0-11.0) 05/19/17 06:45 Gran % 63.4 % (50.0-68.0) 05/19/17 06:45 Lymph % (Auto) 23.2 % (22.0-35.0) 05/19/17 06:45 Kern % (Auto) 11.5 % (1.0-6.0) H 05/19/17 06:45 Eos % (Auto) 1.7 % (1.5-5.0) 05/19/17 06:45 Baso % (Auto) 0.2 % (0.0-3.0) 05/19/17 06:45 Gran # 4.10 (1.4-6.5) 05/19/17 06:45 Lymph # 1.5 (1.2-3.4) 05/19/17 06:45 Kern # 0.7 (0.1-0.6) H 05/19/17 06:45 Eos # 0.1 (0.0-0.7) 05/19/17 06:45 Baso # 0.01 K/mm3 (0.0-2.0) 05/19/17 06:45 PT 10.7 Seconds (9.9-11.8) 05/18/17 14:00 INR 0.99 (0.93-1.08) 05/18/17 14:00 APTT 26.5 Seconds (23.7-30.8) 05/18/17 14:00 pO2 59 mm/Hg (30-55) H 05/18/17 14:00 VBG pH 7.35 (7.32-7.43) 05/18/17 14:00 VBG pCO2 51.0 (40-60) 05/18/17 14:00 VBG HCO3 28.2 mmol/l (21-28) H 05/18/17 14:00 VBG Total CO2 29.8 mmol.L (22-28) H 05/18/17 14:00 VBG O2 Sat (Calc) 93.6 % (40-65) H 05/18/17 14:00 VBG Base Excess 1.7 mmol/L (0.0-2.0) 05/18/17 14:00 VBG Potassium 3.9 mmol/L (3.6-5.2) 05/18/17 14:00 Sodium 138.0 mmol/L (132-148) 05/18/17 14:00 Chloride 104.0 mmol/L (98-107) 05/18/17 14:00 Glucose 108 mg/dl (75-110) 05/18/17 14:00 Lactate 1.8 mmol/L (0.7-2.1) 05/18/17 14:00 FiO2 21.0 % 05/18/17 14:00 Sodium 142 mmol/L (132-148) 05/19/17 06:45 Potassium 4.8 mmol/L (3.6-5.0) 05/19/17 06:45 Chloride 103 mmol/L (95-110) 05/19/17 06:45 Carbon Dioxide 27 mmol/L (21-33) 05/19/17 06:45 Anion Gap 17 (10-20) 05/19/17 06:45 BUN 22 mg/dL (7-21) H 05/19/17 06:45 Creatinine 1.2 mg/dL (0.8-1.5) 05/19/17 06:45 Est GFR ( Amer) > 60 10 06:45 Est GFR (Non-Af Amer) 59 10 06:45 Random Glucose 88 mg/dL (70-110) 05/19/17 06:45 Uric Acid 5.9 mg/dL (3.5-8.5) 05/18/17 14:00 Calcium 9.1 mg/dL (8.4-10.5) 05/19/17 06:45 Total Bilirubin 0.7 mg/dL (0.2-1.3) 05/19/17 06:45 AST 24 U/L (17-59) 05/19/17 06:45 ALT 43 U/L (7-56) 05/19/17 06:45 Alkaline Phosphatase 59 U/L (38-126) 05/19/17 06:45 Lactate Dehydrogenase 344 U/L (333-699) 05/18/17 14:00 Total Creatine Kinase 90 U/L (35-230) 05/18/17 14:00 Troponin I < 0.01 ng/mL 05/18/17 14:00 Total Protein 6.8 g/dL (5.8-8.3) 05/19/17 06:45 Albumin 4.0 g/dL (3.0-4.8) 05/19/17 06:45 Globulin 2.8 gm/dL 05/19/17 06:45 Albumin/Globulin Ratio 1.4 (1.1-1.8) 05/19/17 06:45 Venous Blood Potassium 3.9 mmol/L (3.6-5.2) 05/18/17 14:00 - Hospital Course Hospital Course: This is a 76 year old male with a past medical history of COPD, prostate cancer , Ulcerative colitis(s/p total colectomy),BPH, who presents to the emergency department for right toe pain since Friday. The patient reports that night while coming back from the restroom he stubbed his toe on his bed frame. The patient awoke and noticed that it was red, swollen and warm to touch. The patient describes the pain as dull with no radiation and rates the pain a 6/10 in severity. The patient denies any chest pain, shortness of breath, nausea, vomiting, changes in vision, constipation, diarrhea, sore throat, fevers, chills , or any other complaints. Patient received IV ceftriaxone in the E.D.. We switched it to IV Unasyn. The patient was seen today and was afebrile with no leukocytsis present. The patient was discharged with Cephalexin. and with instructions to follow up with PMD within one week of discharge. Discharge Exam - Head Exam Head Exam: ATRAUMATIC, NORMAL INSPECTION, NORMOCEPHALIC - Eye Exam Eye Exam: EOMI, Normal appearance, PERRL. absent: Periorbital tenderness Pupil Exam: NORMAL ACCOMODATION, PERRL - ENT Exam ENT Exam: Normal Exam, Normal Oropharynx - Neck Exam Neck exam: Normal Inspection - Respiratory Exam Respiratory Exam: Clear to PA & Lateral, NORMAL BREATHING PATTERN, UNREMARKABLE - Cardiovascular Exam Cardiovascular Exam: REGULAR RHYTHM, +S1, +S2 - GI/Abdominal Exam GI & Abdominal Exam: Normal Bowel Sounds, Unremarkable - Extremities Exam Additional comments: Right hallux erythema. - Back Exam Back exam: NORMAL INSPECTION. absent: CVA tenderness (L), CVA tenderness (R) - Neurological Exam Neurological exam: Alert, CN II-XII Intact, Normal Gait, Oriented x3 - Psychiatric Exam Psychiatric exam: Normal Affect, Normal Mood - Skin Skin Exam: Dry, Normal Color Discharge Plan - Discharge Medications Prescriptions: Cephalexin [cephalexin] 500 mg PO QID #28 cap Ibuprofen [Motrin] 400 mg PO Q6 PRN #20 tab PRN Reason: Pain, Severe (8-10) - Follow Up Plan Condition: GOOD Disposition: HOME/ ROUTINE Instructions: Cellulitis (DC), Fall Prevention for Older Adults (GEN), COPD ( Chronic Obstructive Pulmonary Disease) (DC) Additional Instructions: Patient advised to f/u with PMD within one week of discharge. Patient advised to use warm compresses and Motrin OTC for pain. Patient advised to return to hospital for any new or worsening symptoms. You have been discharged from [facility]. Referrals: Sung Cooper MD [Primary Care Provider] - <Arnulfo Diaz - Last Filed: 05/20/17 08:55> Provider - Provider Date of Admission: 05/18/17 15:15 Attending physician: Arnulfo Diaz MD Primary care physician: Sung Cooper MD Hospital Course - Lab Results Lab Results: Most Recent Lab Values WBC 6.5 10^3/ul (4.5-11.0) 05/19/17 06:45 RBC 4.13 10^6/uL (3.5-6.1) 05/19/17 06:45 Hgb 13.4 g/dL (14.0-18.0) L 05/19/17 06:45 Hct 39.3 % (42.0-52.0) L 05/19/17 06:45 MCV 95.2 fl (80.0-105.0) 05/19/17 06:45 MCH 32.4 pg (25.0-35.0) 05/19/17 06:45 MCHC 34.1 g/dl (31.0-37.0) 05/19/17 06:45 RDW 13.3 % (11.5-14.5) 05/19/17 06:45 Plt Count 146 10^3/uL (120.0-450.0) 05/19/17 06:45 MPV 8.3 fl (7.0-11.0) 05/19/17 06:45 Gran % 63.4 % (50.0-68.0) 05/19/17 06:45 Lymph % (Auto) 23.2 % (22.0-35.0) 05/19/17 06:45 Kern % (Auto) 11.5 % (1.0-6.0) H 05/19/17 06:45 Eos % (Auto) 1.7 % (1.5-5.0) 05/19/17 06:45 Baso % (Auto) 0.2 % (0.0-3.0) 05/19/17 06:45 Gran # 4.10 (1.4-6.5) 05/19/17 06:45 Lymph # 1.5 (1.2-3.4) 05/19/17 06:45 [place]ern # 0.7 (0.1-0.6) H 05/19/17 06:45 Eos # 0.1 (0.0-0.7) 05/19/17 06:45 Baso # 0.01 K/mm3 (0.0-2.0) 05/19/17 06:45 PT 10.7 Seconds (9.9-11.8) 05/18/17 14:00 INR 0.99 (0.93-1.08) 05/18/17 14:00 APTT 26.5 Seconds (23.7-30.8) 05/18/17 14:00 pO2 59 mm/Hg (30-55) H 05/18/17 14:00 VBG pH 7.35 (7.32-7.43) 05/18/17 14:00 VBG pCO2 51.0 (40-60) 05/18/17 14:00 VBG HCO3 28.2 mmol/l (21-28) H 05/18/17 14:00 VBG Total CO2 29.8 mmol.L (22-28) H 05/18/17 14:00 VBG O2 Sat (Calc) 93.6 % (40-65) H 05/18/17 14:00 VBG Base Excess 1.7 mmol/L (0.0-2.0) 05/18/17 14:00 VBG Potassium 3.9 mmol/L (3.6-5.2) 05/18/17 14:00 Sodium 138.0 mmol/L (132-148) 05/18/17 14:00 Chloride 104.0 mmol/L (98-107) 05/18/17 14:00 Glucose 108 mg/dl (75-110) 05/18/17 14:00 Lactate 1.8 mmol/L (0.7-2.1) 05/18/17 14:00 FiO2 21.0 % 05/18/17 14:00 Sodium 142 mmol/L (132-148) 05/19/17 06:45 Potassium 4.8 mmol/L (3.6-5.0) 05/19/17 06:45 Chloride 103 mmol/L (95-110) 05/19/17 06:45 Carbon Dioxide 27 mmol/L (21-33) 05/19/17 06:45 Anion Gap 17 (10-20) 05/19/17 06:45 BUN 22 mg/dL (7-21) H 05/19/17 06:45 Creatinine 1.2 mg/dL (0.8-1.5) 05/19/17 06:45 Est GFR ( Amer) > 60 05/19/17 06:45 Est GFR (Non-Af Amer) 59 05/19/17 06:45 Random Glucose 88 mg/dL (70-110) 05/19/17 06:45 Uric Acid 5.9 mg/dL (3.5-8.5) 05/18/17 14:00 Calcium 9.1 mg/dL (8.4-10.5) 05/19/17 06:45 Total Bilirubin 0.7 mg/dL (0.2-1.3) 05/19/17 06:45 AST 24 U/L (17-59) 05/19/17 06:45 ALT 43 U/L (7-56) 05/19/17 06:45 Alkaline Phosphatase 59 U/L (38-126) 05/19/17 06:45 Lactate Dehydrogenase 344 U/L (333-699) 05/18/17 14:00 Total Creatine Kinase 90 U/L (35-230) 05/18/17 14:00 Troponin I < 0.01 ng/mL 05/18/17 14:00 Total Protein 6.8 g/dL (5.8-8.3) 05/19/17 06:45 Albumin 4.0 g/dL (3.0-4.8) 05/19/17 06:45 Globulin 2.8 gm/dL 05/19/17 06:45 Albumin/Globulin Ratio 1.4 (1.1-1.8) 05/19/17 06:45 Venous Blood Potassium 3.9 mmol/L (3.6-5.2) 05/18/17 14:00 Attending/Attestation - Attestation I have personally seen and examined this patient.: Yes I have fully participated in the care of the patient.: Yes I have reviewed all pertinent clinical information, including history, physical exam and plan: Yes Notes (Text): 05/19/17 76 year old male with past medical history of COPD, prostate cancer and ulcerative colitis who presented with right toe pain and erythema secondary to cellulilits. He states he recently stubbed his toe on his bed frame few days prior. Foot xray was negative. He was started on iv antibiotics with improvement of erythema the following day. He is discharged home to follow up with his pmd. Continue with po antibiotics as prescribed. Arnulfo Diaz MD Hospitalist.
[2017-05-20] MEDS ORDERED: Pantoprazole 20 mg EC Tab PO SCH (06:00)
== END 2017-05-19 16:02 | disposition home or self-care (01) | DRG 603 ==
LOC: ED 13:19 → ERH 15:15 → 5RSO 17:11
PROVIDERS: ADMIT Internal Medicine; ATTEND Internal Medicine
PROC: 3E0F7GC Introduction of Other Therapeutic Substance into Respiratory Tract, Via Natural or Artificial Opening (ICD-10-PCS; principal; 2017-05-19)
DX: L03.031 Cellulitis of right toe (principal); J44.9 Chronic obstructive pulmonary disease, unspecified; H35.30 Unspecified macular degeneration; N40.0 Benign prostatic hyperplasia without lower urinary tract symptoms; S99.821D Other specified injuries of right foot, subsequent encounter; W22.03XD Walked into furniture, subsequent encounter; Z85.46 Personal history of malignant neoplasm of prostate; Z93.3 Colostomy status; Z90.49 Acquired absence of other specified parts of digestive tract; Z87.891 Personal history of nicotine dependence

== ENCOUNTER 2017-11-15 21:06 | Observation (INO) | payer MEDICARE ==
[2017-11-15 21:19] VITALS: BMI 23.6
--- NOTE | 2017-11-15 21:29 | ED PDOC ---
Arrival/HPI - General Time Seen by Provider: 11/15/17 21:12 Historian: Patient - History of Present Illness Narrative History of Present Illness (Text): 11/15/17 21:19 Miky Salazar is a 76 year old male, whose past medical history includes COPD, prostate cancer, BPH, colostomy, and ulcerative colitis s/p total colectomy, who presents to the Emergency department complaining of abdominal pain. Patient states he has been experiencing LLQ abdominal cramping for the past 4 hours. Patient states he has experienced similar symptoms in the past for which he was seen by GI, but states pain returned tonight. Patient states he is able to tolerate PO and denies any stool output changes from his colostomy. Patient denies any fever, chills, chest pain, shortness of breath, nausea, vomiting, back pain, neck pain, headache, dizziness, or any other complaints. PMD: Dr. Cooper GI: Dr. Aragon Symptom Onset: Gradual Symptom Course: Unchanged Quality: Cramping Activities at Onset: Light Context: Home Past Medical History - Provider Review Nursing Documentation Reviewed: Yes - Infectious Disease Hx of Infectious Diseases: None - Tetanus Immunization Tetanus Immunization: Unknown - Cardiac Hx Pacemaker: No - Pulmonary Hx Respiratory Disorders: No Hx Asthma: No Hx Bronchitis: Yes Hx Chronic Obstructive Pulmonary Disease (COPD): Yes Hx Emphysema: No Hx Pneumonia: No Hx Respiratory Aspiration: No Hx Respiratory Tract Infection: No Hx Sleep Apnea: No Hx Tuberculosis: No - Neurological Hx Neurological Disorder: No Hx Alzheimer's Disease: No HX Cerebrovascular Accident: No Hx Dementia: No Hx Dizziness: No Hx Meningitis: No Hx Migraine: No Hx Parkinson's Disease: No Hx Seizures: No Hx Transient Ischemic Attacks (TIA): No - HEENT Hx HEENT Disorder: No Hx Blind: No Hx Cataracts: Yes Hx Deafness: No Hx Difficulty Chewing: No Hx Epistaxis: No Hx Glaucoma: No Hx Macular Degeneration: Yes - Renal Hx Renal Disorder: No Hx Dialysis: No Hx Kidney Stones: No Hx Neurogenic Bladder: No Hx Pyelonephritis: No Hx Renal Cancer: No Hx Renal Failure: No - Endocrine/Metabolic Hx Endocrine Disorders: No Hx Adrenal Cancer: No Hx Diabetes Insipidus: No Hx Diabetes Mellitus Type 1: No Hx Diabetes Mellitus Type 2: No Hx Hyperthyroidism: No Hx Hypothyroidism: No Hx Systemic Lupus Erythematosus: No - Hematological/Oncological Hx Blood Disorders: No Hx AIDS: No Hx Anemia: No Hx Cancer: No Hx Chemotherapy: No Hx Cirrhosis: No Hx Hepatitis A: No Hx Hepatitis B: No Hx Hepatitis C: No Hx Metastasis: No Hx Shingles: No Hx Unexplained Bleeding: No - Integumentary Hx Dermatological Disorder: No Hx Basal Cell Carcinoma: No Hx Eczema: No Hx Melanoma: No Hx Psoriasis: No Hx Squamous Cell Carcinoma: No - Musculoskeletal/Rheumatological Hx Falls: No - Gastrointestinal Hx Colostomy: Yes - Genitourinary/Gynecological Hx Prostate Problems: Yes - Psychiatric Hx Emotional Abuse: No Hx Physical Abuse: No Hx Substance Use: No - Surgical History Other/Comment: colostomy - Anesthesia Hx Anesthesia Reactions: Yes (NAUSEA/VOMITING) Hx Malignant Hyperthermia: No - Suicidal Assessment Feels Threatened In Home Enviroment: No Family/Social History - Physician Review Nursing Documentation Reviewed: Yes Family/Social History: Unknown Family HX Smoking Status: Former Smoker Hx Alcohol Use: No Hx Substance Use: No Hx Substance Use Treatment: No Allergies/Home Meds Allergies/Adverse Reactions: Allergies No Known Allergies Allergy (Verified 11/15/17 21:24) Home Medications: Home Meds Medication Instructions Recorded Confirmed No Known Home Med 11/15/17 11/15/17 Review of Systems - Physician Review All systems were reviewed & negative as marked: Yes - Review of Systems Constitutional: Normal. absent: Fevers Eyes: Normal ENT: Normal Respiratory: Normal. absent: SOB, Cough Cardiovascular: Normal. absent: Chest Pain Gastrointestinal: Abdominal Pain. absent: Diarrhea, Nausea, Vomiting Genitourinary Male: Normal. absent: Dysuria, Frequency, Hematuria, Urinary Output Changes Musculoskeletal: Normal. absent: Back Pain, Neck Pain Skin: Normal. absent: Rash Neurological: Normal. absent: Headache, Dizziness Endocrine: Normal Hemo/Lymphatic: Normal Psychiatric: Normal Physical Exam Vital Signs Reviewed: Yes Vital Signs Temp Pulse Resp BP Pulse Ox 11/15/17 21:19 97.6 F 87 18 140/86 99 Temperature: Afebrile Blood Pressure: Normal Pulse: Regular Respiratory Rate: Normal Appearance: Positive for: Well-Appearing, Non-Toxic, Comfortable Pain Distress: None Mental Status: Positive for: Alert and Oriented X 3 - Systems Exam Head: Present: Atraumatic, Normocephalic Pupils: Present: PERRL Extroacular Muscles: Present: EOMI Conjunctiva: Present: Normal Mouth: Present: Moist Mucous Membranes Neck: Present: Normal Range of Motion Respiratory/Chest: Present: Clear to Auscultation, Good Air Exchange. No: Respiratory Distress, Accessory Muscle Use Cardiovascular: Present: Regular Rate and Rhythm, Normal S1, S2. No: Murmurs Abdomen: Present: Tenderness (LLQ tenderness), Other (Stool in colostomy). No: Distention, Peritoneal Signs Back: Present: Normal Inspection Upper Extremity: Present: Normal Inspection. No: Cyanosis, Edema Lower Extremity: Present: Normal Inspection. No: Edema Neurological: Present: GCS=15, CN II-XII Intact, Speech Normal Skin: Present: Warm, Dry, Normal Color. No: Rashes Psychiatric: Present: Alert, Oriented x 3, Normal Insight, Normal Concentration Medical Decision Making ED Course and Treatment: 11/15/17 21:19 Impression: 76 year old male complaining of LLQ abdominal cramping for 4 hours. Plan: -- CT Abdomen and Pelvis with PO and IV contrast -- EKG -- Labs, lipase -- IV fluids -- Toradol -- Reassess and disposition Prior Visits: Notes and results from previous visits were reviewed. On 06/17/2017, pt was seen in the Emergency department for drainage tube in abdomen. Pt was d/c home. Progress Notes: 11/15/17 22:00 Reviewed EKG, NSR at [address]-segment elevations or depressions, no T-wave inversions, normal intervals. 11/16/17 01:22 CT Abdomen and Pelvis shows: Lung bases: There is bibasilar atelectasis. Mediastinum: Small hiatal hernia. ABDOMEN: Liver: Fatty liver. Gallbladder and bile ducts: Cholecystectomy. Pancreas: Unremarkable. No mass. No ductal dilation. Spleen: Unremarkable. No splenomegaly. Adrenals: Unremarkable. No mass. Kidneys and ureters: The largest left renal cyst measures 2.4 cm. There are multiple small subcentimeter renal hypodensities that cannot be further characterized on the current examination. No hydronephrosis. Stomach and bowel: Total Colectomy. There is right lower quadrant ileostomy with parastomal hernia containing fat and bowel. No bowel strangulation or gangrene. No obstruction. Appendix: Appendectomy. PELVIS: Bladder: Partially distended bladder with bladder wall thickening with perivesical inflammation and multiple diverticular outpouching of the bladder. Correlation with urinalysis is recommended only if clinical cystitis is suspected. Reproductive: Prostatectomy. ABDOMEN and PELVIS: Intraperitoneal space: Unremarkable. No free air. No significant fluid collection. Bones/joints: No acute fracture. No dislocation. Soft tissues: Bilateral inguinal herniation of fat. Vasculature: The aorta demonstrates calcified plaque and is mildly ectatic but normal in caliber. Pelvic phleboliths. No abdominal aortic aneurysm. Lymph nodes: Unremarkable. No enlarged lymph nodes. IMPRESSION: 1. Partially distended bladder with bladder wall thickening with perivesical inflammation and multiple diverticular outpouching of the bladder. Correlation with urinalysis is recommended only if clinical cystitis is suspected. 11/16/17 03:25 Case discussed with medical technologist clinical promotions team leader, who is aware and agrees with plan. 11/16/17 03:[address] Zeng, who is aware and agrees with plan. Accepts pt in to hospitalist service. [facility] will go to [facility] observation for intractable abdominal pain. Dr. Aragon, pt's GI, on consult. - Lab Interpretations Lab Results: 11/15/17 21:30 11/15/17 21:30 Lab Results 11/16/17 01:30: Urine Color Yellow, Urine Appearance Clear, Urine pH 7.0, Ur Specific [place] 1.010, Urine Protein Negative, Urine Glucose (UA) Negative, Urine Ketones Negative, Urine Blood Negative, Urine Nitrate Negative, Urine Bilirubin Negative, Urine Urobilinogen 0.2, Ur Leukocyte Esterase Negative 11/15/17 21:30: WBC 5.7, RBC 4.28, Hgb 13.9 L, Hct 39.4 L, MCV 92.1 D, MCH 32.5 , MCHC 35.3, RDW 13.3, Plt Count 173, MPV 8.1 11/15/17 21:30: Sodium 140, Potassium 3.8, Chloride 102, Carbon Dioxide 27, Anion Gap 14, BUN 19, Creatinine 1.1, Est GFR ( Amer) > 60, Est GFR (Non- Af Amer) > 60, Random Glucose 103, Calcium 9.8, Total Bilirubin 0.5, AST 34, ALT 40, Alkaline Phosphatase 59, Total Protein 7.3, Albumin 4.2, Globulin 3.1, Albumin/Globulin Ratio 1.4, Lipase 66 I have reviewed the lab results: Yes - RAD Interpretation Radiology Orders: 11/15/17 21:20 ABD PELVIS PO & IV CONTRAST [CT] Stat Spool Hauler: Radiologist - EKG Interpretation Interpreted by ED Physician: Yes Type: 12 lead EKG - Medication Orders Current Medication Orders: Sodium Chloride (Sodium Chloride 0.9%) 1,000 mls @ 100 mls/hr IV .Q10H VIVIAN Last Admin: 11/15/17 21:38 Dose: 100 mls/hr eMAR Start Stop Document 11/15/17 21:38 JOL (Rec: 11/15/17 21:40 [id number] Intravenous Solution Start Date 11/15/17 Start Time 21:40 Discontinued Medications Ketorolac Tromethamine (Toradol) 30 mg IVP ONCE ONE Stop: 11/15/17 21:21 Last Admin: 11/15/17 21:40 Dose: 30 mg MAR Pain Assessment Document 11/15/17 21:40 JOL (Rec: 11/15/17 21:40 [id number]) Pain Reassessment Is this a pain reassessment? No Sleep Is patient sleeping during reassessment? No Presence of Pain Presence of Pain Yes Pain Scale Used Pain Scale Used Numeric Description Intensity of Pain at present 6 IVP Administration Document 11/15/17 21:40 JOL (Rec: 11/15/17 21:40 [id number]) Charges for Administration # of IVP Administrations 1 Morphine Sulfate (Morphine) 2 mg IVP STAT STA Stop: 11/16/17 02:33 Last Admin: 11/16/17 02:53 Dose: 2 mg IVP Administration Document 11/16/17 02:53 JOL (Rec: 11/16/17 02:53 [id number]) Charges for Administration # of IVP Administrations 1 Ondansetron HCl (Zofran Inj) 4 mg IVP ONCE ONE Stop: 11/16/17 02:34 Last Admin: 11/16/17 02:53 Dose: 4 mg IVP Administration Document 11/16/17 02:53 JOL (Rec: 11/16/17 02:53 [id number]) Charges for Administration # of IVP Administrations 1 - Scribe Statement The provider has reviewed the documentation as recorded by the Dave Asencio Provider Scribe Attestation: All medical record entries made by the Scribe were at my direction and personally dictated by me. I have reviewed the chart and agree that the record accurately reflects my personal performance of the history, physical exam, medical decision making, and the department course for this patient. I have also personally directed, reviewed, and agree with the discharge instructions and Disposition/Present on Arrival - Present on Arrival Any Indicators Present on Arrival: No History of DVT/PE: No History of Uncontrolled Diabetes: No Urinary Catheter: No History of Decub. Ulcer: No History Surgical Site Infection Following: None - Disposition Have Diagnosis and Disposition been Completed?: Yes Diagnosis: Abdominal pain Disposition: HOSPITALIZED Disposition Time: 03:33 Patient Plan: Observation Patient Problems: Current Active Problems Problem Status Onset Abdominal pain Acute Condition: STABLE Referrals: Sung Cooper MD [Primary Care Provider] - Follow up with primary
[2017-11-15] MEDS ORDERED: Iohexol 240 (50 ml) ONE (21:35)
[2017-11-15] MEDS: Sodium Chloride 0.9% 1,000 ML IV SCH (21:38)
[2017-11-15 21:48] LABS: HEMOGLOBIN 13.9 g/dL (14.0-18.0); MEAN CELL VOLUME 92.1 fl (80.0-105.0); MEAN CORPUSCULAR HEMOGLOBIN 32.5 pg (25.0-35.0); MEAN CORPUSCULAR HGB CONC 35.3 g/dl (31.0-37.0); MEAN PLATELET VOLUME 8.1 fl (7.0-11.0); RBC 4.28 10^6/uL (3.5-6.1); RED CELL DISTRIBUTION WIDTH 13.3 % (11.5-14.5); WHITE BLOOD COUNT 5.7 10^3/ul (4.5-11.0)
[2017-11-15 22:02] LABS: ALB/GLOB RATIO 1.4 (1.1-1.8); ALBUMIN 4.2 g/dL (3.0-4.8); ALT/SGPT 40 U/L (7-56); AST/SGOT 34 U/L (17-59); BLOOD UREA NITROGEN 19 mg/dL (7-21); CALCIUM 9.8 mg/dL (8.4-10.5); GFR AFRICAN-AMERICAN > 60; GFR NON-AFRICAN AMERICAN > 60; LIPASE 66 U/L (23-300)
[2017-11-15] MEDS ORDERED: Iohexol 350 MG/100 ML VIAL ONE (23:46)
[2017-11-16 01:43] LABS: URINE BILIRUBIN NEGATIVE (NEGATIVE); URINE BLOOD NEGATIVE (NEGATIVE); URINE GLUCOSE (UA) NEGATIVE (NEGATIVE); URINE LEUKOCYTE ESTERASE NEGATIVE Leu/uL (NEGATIVE); URINE PROTEIN NEGATIVE mg/dL (<30 mg/dL); URINE UROBILINOGEN 0.2 E.U./dL (<1 E.U./dL)
[2017-11-16 01:50] LABS: URINE APPEARANCE CLEAR (CLEAR); URINE COLOR YELLOW (YELLOW)
[2017-11-16] MEDS ORDERED: Morphine 2 mg/2 mL syringe IVP STA (02:32)
--- NOTE | 2017-11-16 02:53 | CT ---
EXAM: CT Abdomen and Pelvis With Intravenous Contrast CLINICAL HISTORY: 76 years old, male; Pain; Abdominal pain; Generalized; Prior surgery; Surgery type: Removal of colon and prostate, HX prostate cancer; Additional info: Left lower abdominal pain TECHNIQUE: Axial computed tomography images of the abdomen and pelvis with intravenous contrast. All CT scans at this facility use one or more dose reduction techniques, viz.: automated exposure control; ma/kV adjustment per patient size (including targeted exams where dose is matched to indication; i.e. head); or iterative reconstruction technique. 617 images are submitted. Oral contrast was administered.Sagittal , axial and coronal MPR reformatted images are submitted. CONTRAST: 100 mL of omni 350 administered intravenously. COMPARISON: CT - ABD PELVIS IV CONTRAST ONLY 2017-01-14 04:10 FINDINGS: Lung bases: There is bibasilar atelectasis. Mediastinum: Small hiatal hernia. ABDOMEN: Liver: Fatty liver. Gallbladder and bile ducts: Cholecystectomy. Pancreas: Unremarkable. No mass. No ductal dilation. Spleen: Unremarkable. No splenomegaly. Adrenals: Unremarkable. No mass. Kidneys and ureters: The largest left renal cyst measures 2.4 cm. There are multiple small subcentimeter renal hypodensities that cannot be further characterized on the current examination. No hydronephrosis. Stomach and bowel: Total Colectomy. There is right lower quadrant ileostomy with parastomal hernia containing fat and bowel. No bowel strangulation or gangrene. No obstruction. Appendix: Appendectomy. PELVIS: Bladder: Partially distended bladder with bladder wall thickening with perivesical inflammation and multiple diverticular outpouching of the bladder. Correlation with urinalysis is recommended only if clinical cystitis is suspected. Reproductive: Prostatectomy. ABDOMEN and PELVIS: Intraperitoneal space: Unremarkable. No free air. No significant fluid collection. Bones/joints: No acute fracture. No dislocation. Soft tissues: Bilateral inguinal herniation of fat. Vasculature: The aorta demonstrates calcified plaque and is mildly ectatic but normal in caliber. Pelvic phleboliths. No abdominal aortic aneurysm. Lymph nodes: Unremarkable. No enlarged lymph nodes. IMPRESSION: 1. Partially distended bladder with bladder wall thickening with perivesical inflammation and multiple diverticular outpouching of the bladder. Correlation with urinalysis is recommended only if clinical cystitis is suspected.
--- NOTE | 2017-11-16 03:45 | CP.PCM.HP ---
History of Present Illness - History of Present Illness History of Present Illness: Tania Brooks, PGY1, H&P for Dr Zeng: CC: LLQ abdominal pain 76 year old male with PMH COPD, prostate cancer s/p prostatectomy (06/2017), BPH, colostomy, and ulcerative colitis s/p total colectomy, presents for sharp LLQ abdominal pain that started yesterday afternoon. For the past few days, pt had been experiencing crampy lower abdominal pain, for which he visited his GI Dr Aragon. The pain radiates to left flank area. Pt was scheduled for a CT abd pelvis outpatient. However, today, pt had worsening and felt sharp LLQ pain , requiring him to come to ED. Pt denies any fever, chills, nausea, vomiting, cough, cp, palpitations, epigastric pain, diarrhea, constipation, changes in stool output from colostomy bag, leg swelling. Pt had a prostatectomy done in , has been urinary incontinent since then, requiring diapers. Pt report increased urinary frequency, but denies hematuria/dysuria. In ED, pt afebrile, vitals stable. CT abd pelvis showed bladder wall thickening with perivesical inflammation, UA neg for infection. 12 point ROS obtained and negative, except as per HPI. PMD: Dr. Cooper GI: Dr. Aragon Urologist: in [place], [place] (does not remember name) PMH: COPD, prostate cancer, Ulcerative colitis(s/p total colectomy),BPH, Surg: cholecystectomy about 20 years ago, cataract sx, knee sx, prostatectomy ( 06/2017) Allergies: None Medications: Remicade every 6 weeks, Brovana, Lactobacillus FHx: lung cancer mom Social: former smoker; quit 35 years ago; was 1pack per day for 20 years before ; denies EtOH or illicit drug use Prev admission: right toe pain after trauma in 05/2017 Present on Admission - Present on Admission Any Indicators Present on Admission: No History of DVT/PE: No History of Uncontrolled Diabetes: No Urinary Catheter: No Decubitus Ulcer Present: No Review of Systems - Review of Systems All systems: reviewed and no additional remarkable complaints except Review of Systems: as per HPI Past Patient History - Infectious Disease Hx of Infectious Diseases: None - Tetanus Immunizations Tetanus Immunization: Unknown - Past Medical History & Family History Past Medical History?: No - Past Social History Smoking Status: Former Smoker - CARDIAC Hx Pacemaker: No - PULMONARY Hx Respiratory Disorders: No Hx Asthma: No Hx Bronchitis: Yes Hx Chronic Obstructive Pulmonary Disease (COPD): Yes Hx Emphysema: No Hx Pneumonia: No Hx Respiratory Aspiration: No Hx Respiratory Tract Infection: No Hx Sleep Apnea: No Hx Tuberculosis: No - NEUROLOGICAL Hx Neurological Disorder: No Hx Alzheimer's Disease: No HX Cerebrovascular Accident: No Hx Dementia: No Hx Dizziness: No Hx Meningitis: No Hx Migraine: No Hx Parkinson's Disease: No Hx Seizures: No Hx Transient Ischemic Attacks (TIA): No - HEENT Hx HEENT Problems: No Hx Blind: No Hx Cataracts: Yes Hx Deafness: No Hx Difficulty Chewing: No Hx Epistaxis: No Hx Glaucoma: No Hx Macular Degeneration: Yes - RENAL Hx Chronic Kidney Disease: No Hx Dialysis: No Hx Kidney Stones: No Hx Neurogenic Bladder: No Hx Pyelonephritis: No Hx Renal (Kidney) Cancer: No Hx Renal Failure: No - ENDOCRINE/METABOLIC Hx Endocrine Disorders: No Hx Adrenal Cancer: No Hx Diabetes Insipidus: No Hx Diabetes Mellitus Type 1: No Hx Diabetes Mellitus Type 2: No Hx Hyperthyroidism: No Hx Hypothyroidism: No Hx Systemic Lupus Erythematosus: No - HEMATOLOGICAL/ONCOLOGICAL Hx Blood Disorders: No Hx AIDS: No Hx Anemia: No Hx Cancer: No Hx Chemotherapy: No Hx Cirrhosis: No Hx Hepatitis A: No Hx Hepatitis B: No Hx Hepatitis C: No Hx Metastesis: No Hx Shingles: No Hx Unexplained Bleeding: No - INTEGUMENTARY Hx Dermatological Problems: No Hx Basil Cell: No Hx Eczema: No Hx Melanoma: No Hx Psoriasis: No Hx Squamous Cell: No - MUSCULOSKELETAL/RHEUMATOLOGICAL Hx Falls: No - GASTROINTESTINAL Hx Colostomy: Yes - GENITOURINARY/GYNECOLOGICAL Hx Prostate Problems: Yes - PSYCHIATRIC Hx Emotional Abuse: No Hx Physical Abuse: No Hx Substance Use: No - SURGICAL HISTORY Other/Comment: colostomy - ANESTHESIA Hx Anesthesia Reactions: Yes (NAUSEA/VOMITING) Hx Malignant Hyperthermia: No Meds Allergies/Adverse Reactions: Allergies Allergy/AdvReac Type Severity Reaction Status Date / Time No Known Allergies Allergy Verified 11/15/17 21:24 Physical Exam - Constitutional Appears: Non-toxic, No Acute Distress - Head Exam Head Exam: ATRAUMATIC, NORMOCEPHALIC - Eye Exam Eye Exam: EOMI, PERRL. absent: Conjunctival injection, Nystagmus, Scleral icterus Pupil Exam: NORMAL ACCOMODATION, PERRL. absent: Fixed, Irregular, Unequal - ENT Exam ENT Exam: Mucous Membranes Moist - Neck Exam Neck exam: Positive for: Normal Inspection - Respiratory Exam Respiratory Exam: Clear to Auscultation Bilateral, NORMAL BREATHING PATTERN. absent: Accessory Muscle Use, Chest Wall Tenderness, Rales, Rhonchi, Wheezes, Stridor - Cardiovascular Exam Cardiovascular Exam: RRR, +S1, +S2. absent: Systolic Murmur - GI/Abdominal Exam GI & Abdominal Exam: Guarding, Normal Bowel Sounds, Soft, Tenderness (TTP in suprapubic region, leads to radiation in LLQ area. otherwise, nontender to palpation in LLQ/other abdominal areas.). absent: Distended, Firm, Mass, Pulsatile Mass, Rebound, Rigid - Extremities Exam Extremities exam: Positive for: normal inspection. Negative for: calf tenderness, pedal edema - Back Exam Back exam: NORMAL INSPECTION. absent: CVA tenderness (L), CVA tenderness (R) - Neurological Exam Neurological exam: Alert, Oriented x3 - Psychiatric Exam Psychiatric exam: Normal Affect, Normal Mood - Skin Skin Exam: Dry, Normal Color, Warm Results - Vital Signs Recent Vital Signs: Last Vital Signs Temp 97.6 F 11/15/17 21:19 Pulse 71 11/16/17 03:07 Resp 18 11/16/17 03:07 BP 142/78 11/16/17 03:07 Pulse Ox 99 11/16/17 03:07 - Labs Result Diagrams: 11/15/17 21:30 11/15/17 21:30 Labs: Laboratory Results - last 24 hr 11/15/17 11/15/17 11/16/17 21:30 21:30 01:30 WBC 5.7 RBC 4.28 Hgb 13.9 L Hct 39.4 L MCV 92.1 D MCH 32.5 MCHC 35.3 RDW 13.3 Plt Count 173 MPV 8.1 Sodium 140 Potassium 3.8 Chloride 102 Carbon Dioxide 27 Anion Gap 14 BUN 19 Creatinine 1.1 Est GFR ( Amer) > 60 Est GFR (Non-Af Amer) > 60 Random Glucose 103 Calcium 9.8 Total Bilirubin 0.5 AST 34 ALT 40 Alkaline Phosphatase 59 Total Protein 7.3 Albumin 4.2 Globulin 3.1 Albumin/Globulin Ratio 1.4 Lipase 66 Urine Color Yellow Urine Appearance Clear Urine pH 7.0 Ur Specific [place] 1.010 Urine Protein Negative Urine Glucose (UA) Negative Urine Ketones Negative Urine Blood Negative Urine Nitrate Negative Urine Bilirubin Negative Urine Urobilinogen 0.2 Ur Leukocyte Esterase Negative Assessment & Plan - Assessment and Plan (Free Text) Assessment: 76 year old male with hx of UC, s/p total colectomy, colostomy, prostatectomy, presents for LLQ abdominal pain: LLQ abdominal pain: 2/2 musculoskeletal vs cystitis (2/2 pt's urinary incontinence) vs colostomy malfunction vs unlikely nephrolithiasis - CT abd pelvis: Partially distended bladder with bladder wall thickening with perivesical inflammation and multiple diverticular outpouching of the bladder. - UA neg for infection. will repeat UA. - GI consulted. F/u recs - lipase nrml - Toradol prn pain - NPO - Zofran Hx of COPD: - Duonebs prn DVT ppx: SCDs GI ppx: Protonix Diet: NPO Discussed with Dr Zeng. - Date & Time Date: 11/16/17 Time: 05:31
[2017-11-16] MEDS ORDERED: Albuterol-Ipratrop 3 mg / 0.5 (3 ml) UD IH PRN (05:21)
[2017-11-16] MEDS: Sodium Chloride 0.9% 1,000 ML IV SCH (06:56)
[2017-11-16 07:21] LABS: BASO # 0.02 K/mm3 (0.0-2.0); BASO % 0.5 % (0.0-3.0); EOS # 0.1 (0.0-0.7); EOS % 1.8 % (1.5-5.0); LYMPH # 1.8 (1.2-3.4); LYMPH % 40.3 % (22.0-35.0); MEAN CELL VOLUME 92.1 fl (80.0-105.0); MEAN CORPUSCULAR HEMOGLOBIN 31.9 pg (25.0-35.0); MEAN CORPUSCULAR HGB CONC 34.7 g/dl (31.0-37.0); MONO # 0.6 (0.1-0.6); MONO % 12.4 % (1.0-6.0); RBC 4.07 10^6/uL (3.5-6.1); RED CELL DISTRIBUTION WIDTH 13.2 % (11.5-14.5); WHITE BLOOD COUNT 4.4 10^3/ul (4.5-11.0)
[2017-11-16 07:38] LABS: ALB/GLOB RATIO 1.2 (1.1-1.8); ALBUMIN 3.6 g/dL (3.0-4.8); ALT/SGPT 40 U/L (7-56); AST/SGOT 32 U/L (17-59); BLOOD UREA NITROGEN 18 mg/dL (7-21); CALCIUM 9.4 mg/dL (8.4-10.5); GFR AFRICAN-AMERICAN > 60; GFR NON-AFRICAN AMERICAN > 60
[2017-11-16 07:47] VITALS: O2SAT 98
--- NOTE | 2017-11-16 14:20 | CARD ---
APPROVED REPORT EKG Measurement Heart [id number] <Conclusion> Normal sinus rhythm Normal ECG
[2017-11-16 14:35] VITALS: BP 112/78; PULSE 78; RESP 18; TEMP 97.6
--- NOTE | 2017-11-17 03:40 | CON ---
DATE: REASON FOR CONSULTATION: Abdominal pain. HISTORY OF PRESENT ILLNESS: This is a 76-year-old patient with a history of ulcerative colitis status post total colectomy with ileostomy, history of prostate cancer, status post radical prostatectomy and complicated postop course for drain dislodgement, had a laparotomy done for removal of the drain, presented to the emergency room complaining of sharp episodes of left-sided abdominal discomfort. No vomiting or diarrhea. He was concerned because of the severity of the pain. Patient did have no similar episodes before. PAST MEDICAL HISTORY: Other past medical history as above. ALLERGIES: NO KNOWN DRUG ALLERGIES. REVIEW OF SYSTEMS: Positive as above. Other systems reviewed. PHYSICAL EXAMINATION: GENERAL: Not in acute distress. Patient is comfortable, lying on the bed. VITAL SIGNS: Temperature 97.5, pulse 69, blood pressure 142/78, respirations 19, O2 saturation 98%. HEENT: Atraumatic, anicteric. NECK: Supple. HEART: S1 and S2 heard. LUNGS: Bilateral air entry present. ABDOMEN: Soft. Ileostomy present. Abdominal scar present. EXTREMITIES: No edema. No cyanosis. NEUROLOGIC: Alert, oriented. Moves all the extremities. LABORATORY DATA: Hemoglobin 13, hematocrit 37.5, WBC 4.4, platelets 129. Chemistry is essentially unremarkable. Urinalysis negative. CT scan findings as described above. IMPRESSION: This is a 76-year-old patient with history of ulcerative colitis status post total colectomy with ileostomy, history of prostate cancer status post radical prostatectomy, presented with acute intermittent episodes of left-sided abdominal discomfort. Patient is feeling better, tolerating the diet now. Patient had an CT scan of the abdomen and pelvis done, which showed no obstruction. No acute pathology otherwise. Review of the systems is positive as above. Other systems reviewed. Patient is also being followed by Urology Oncology doctor in [facility], and also urologist, Dr. Mcrae in [place]. This is a 76-year-old patient admitted with intermittent episodes of chronic severe abdominal pain. The etiology is unclear. The CAT scan does not show any obvious obstruction. There is a bladder distention, diverticula noticed. Patient has a history of ulcerative colitis status post total colectomy done. RECOMMENDATIONS: Would recommend: 1. Clear liquid diet. Slowly advance it to low-residue soft diet. If the patient is not able to tolerate, patient can be discharged to be followed up as an outpatient. 2. Patient was advised to come back if there is any further worsening of the abdominal pain or recurrence. 3. Patient is advised to follow up with the urological followup. Thank you very much for allowing us to participate in the care of the patient. Ventura Aragon MD
== END 2017-11-16 19:29 | disposition home or self-care (01) ==
LOC: ED 21:06 → ERH 11-16 03:32 → 5RSO 11-16 04:35
PROVIDERS: ADMIT Internal Medicine; ATTEND Internal Medicine
DX: R10.32 Left lower quadrant pain (principal); K51.90 Ulcerative colitis, unspecified, without complications; N40.1 Benign prostatic hyperplasia with lower urinary tract symptoms; R35.0 Frequency of micturition; J44.9 Chronic obstructive pulmonary disease, unspecified; H35.30 Unspecified macular degeneration; Z90.49 Acquired absence of other specified parts of digestive tract; Z87.891 Personal history of nicotine dependence; Z85.46 Personal history of malignant neoplasm of prostate; Z93.3 Colostomy status; Z98.49 Cataract extraction status, unspecified eye; Z80.1 Family history of malignant neoplasm of trachea, bronchus and lung
CPT/HCPCS: 36415; 74177; 80053; 81003; 83690; 83735; 84100; 85025; 85027; 87086; 93005; 96374; 96375; 99285; C9113; G0378; J1885; J2270; J2405; J7040; Q9966; Q9967

== ENCOUNTER 2018-04-09 08:08 | Emergency (ER) | payer MEDICARE ==
--- NOTE | 2018-04-09 08:29 | ED PDOC ---
Arrival/HPI - General Historian: Patient <JimmyKale - Last Filed: 04/09/18 12:24> <AdeleJovany Luana - Last Filed: 04/09/18 13:08> - General Time Seen by Provider: 04/09/18 08:16 - History of Present Illness Narrative History of Present Illness (Text): 04/09/18 08:27 Mr. Carroll is a 76 year old male, whose past medical history includes COPD, prostate cancer s/p prostatectomy (06/2017), BPH, colostomy, and ulcerative colitis s/p total colectomy who presents to the Emergency department complaining of a firm mass on his left groin. Patient states that after he came out of the shower this morning he noticed a firm mass on his left groin. He states it is not painful and he has never had this in the past before. Patient had diarrhea last weekend and went to see his gastroenterologsit, Dr. Aragon and was prescribed ciprofloxacin and metronidazole. Patient denies fevers, chills, headaches, cough, chest pain, shortness of breath, N/V/D, or urinary symptoms. PMD: Dr. Cooper GI: Dr. Aragon Urologist: Dr. Camacho Surgeon: Dr. Brandon Holland (Kale Marquez) Past Medical History - Infectious Disease Hx of Infectious Diseases: None - Tetanus Immunization Tetanus Immunization: Unknown - Cardiac Hx Pacemaker: No - Pulmonary Hx Respiratory Disorders: No Hx Asthma: No Hx Bronchitis: Yes Hx Chronic Obstructive Pulmonary Disease (COPD): Yes Hx Emphysema: No Hx Pneumonia: No Hx Respiratory Aspiration: No Hx Respiratory Tract Infection: No Hx Sleep Apnea: No Hx Tuberculosis: No - Neurological Hx Neurological Disorder: No Hx Alzheimer's Disease: No HX Cerebrovascular Accident: No Hx Dementia: No Hx Dizziness: No Hx Meningitis: No Hx Migraine: No Hx Parkinson's Disease: No Hx Seizures: No Hx Transient Ischemic Attacks (TIA): No - HEENT Hx HEENT Disorder: No Hx Blind: No Hx Cataracts: Yes Hx Deafness: No Hx Difficulty Chewing: No Hx Epistaxis: No Hx Glaucoma: No Hx Macular Degeneration: Yes - Renal Hx Renal Disorder: No Hx Dialysis: No Hx Kidney Stones: No Hx Neurogenic Bladder: No Hx Pyelonephritis: No Hx Renal Cancer: No Hx Renal Failure: No - Endocrine/Metabolic Hx Endocrine Disorders: No Hx Adrenal Cancer: No Hx Diabetes Insipidus: No Hx Diabetes Mellitus Type 1: No Hx Diabetes Mellitus Type 2: No Hx Hyperthyroidism: No Hx Hypothyroidism: No Hx Systemic Lupus Erythematosus: No - Hematological/Oncological Hx Blood Disorders: No Hx AIDS: No Hx Anemia: No Hx Cancer: No Hx Chemotherapy: No Hx Cirrhosis: No Hx Hepatitis A: No Hx Hepatitis B: No Hx Hepatitis C: No Hx Metastasis: No Hx Shingles: No Hx Unexplained Bleeding: No - Integumentary Hx Dermatological Disorder: No Hx Basal Cell Carcinoma: No Hx Eczema: No Hx Melanoma: No Hx Psoriasis: No Hx Squamous Cell Carcinoma: No - Musculoskeletal/Rheumatological Hx Falls: No - Gastrointestinal Hx Colostomy: Yes - Genitourinary/Gynecological Hx Prostate Problems: Yes - Psychiatric Hx Emotional Abuse: No Hx Physical Abuse: No Hx Substance Use: No - Surgical History Other/Comment: colostomy - Anesthesia Hx Anesthesia Reactions: Yes (NAUSEA/VOMITING) Hx Malignant Hyperthermia: No - Suicidal Assessment Feels Threatened In Home Enviroment: No <Kale Marquez - Last Filed: 04/09/18 12:24> - Provider Review Nursing Documentation Reviewed: Yes <Jovany Angulo - Last Filed: 04/09/18 13:08> Family/Social History Family/Social History: Neoplasm/Cancer (Mom had lung cancer) Smoking Status: Former Smoker Hx Alcohol Use: No Hx Substance Use: No Hx Substance Use Treatment: No <Kale Marquez - Last Filed: 04/09/18 12:24> - Physician Review Nursing Documentation Reviewed: Yes <Jovany Angulo - Last Filed: 04/09/18 13:08> Allergies/Home Meds <Kale Marquez - Last Filed: 04/09/18 12:24> <Jovany Angulo - Last Filed: 04/09/18 13:08> Allergies/Adverse Reactions: Allergies No Known Allergies Allergy (Verified 11/15/17 21:24) Home Medications: Home Meds Medication Instructions Recorded Confirmed Ciprofloxacin [Cipro] 500 mg PO DAILY 04/09/18 04/09/18 metroNIDAZOLE [Flagyl] 500 mg PO TID 04/09/18 04/09/18 Review of Systems - Review of Systems Constitutional: Normal. absent: Fevers Eyes: Normal ENT: Normal Respiratory: Normal. absent: SOB, Cough, Wheezing Cardiovascular: Normal. absent: Chest Pain Gastrointestinal: absent: Stool Changes, Constipation, Diarrhea (On cipro and flagyl for diarrhea), Nausea, Vomiting Genitourinary Male: Normal Musculoskeletal: Normal Skin: Normal. absent: Rash Neurological: Normal. absent: Headache Psychiatric: Normal <Kale Marquez - Last Filed: 04/09/18 12:24> - Physician Review All systems were reviewed & negative as marked: Yes <AdeleJovany L - Last Filed: 04/09/18 13:08> Physical Exam Vital Signs Reviewed: Yes Temperature: Afebrile Blood Pressure: Normal Pulse: Regular Respiratory Rate: Normal Appearance: Positive for: Well-Appearing Pain Distress: None Mental Status: Positive for: Alert and Oriented X 3 - Systems Exam Head: Present: Atraumatic, Normocephalic Pupils: Present: PERRL Extroacular Muscles: Present: EOMI Conjunctiva: Present: Normal Respiratory/Chest: Present: Clear to Auscultation. No: Respiratory Distress, Accessory Muscle Use, Wheezes Cardiovascular: Present: Regular Rate and Rhythm, Normal S1, S2. No: Murmurs, Rub, Gallop Abdomen: Present: Tenderness (Left lower quadrant tender to palpation), Normal Bowel Sounds, Ostomy Tubes (Colostomy bag on right lower quadrant). No: Distention, Guarding Genitourinary Male: Present: Normal External Genitalia Upper Extremity: Present: Normal Inspection. No: Cyanosis, Edema Lower Extremity: Present: Normal Inspection. No: Edema, CALF TENDERNESS Neurological: Present: GCS=15, CN II-XII Intact, Speech Normal Skin: Present: Warm, Dry, Normal Color. No: Rashes Psychiatric: Present: Alert, Oriented x 3, Normal Insight, Normal Concentration <Kale Marquez - Last Filed: 04/09/18 12:24> Vital Signs Temp Pulse Resp BP Pulse Ox 04/09/18 12:00 98.2 F 74 149/76 99 04/09/18 10:00 76 18 140/72 99 04/09/18 08:41 98.3 F 80 18 138/83 98 Medical Decision Making <Kale Marquez - Last Filed: 04/09/18 12:24> <Jovany Angulo - Last Filed: 04/09/18 13:08> ED Course and Treatment: 04/09/18 08:28 Impression: Patient is a 77 year old male with past medical history of COPD, prostate cancer s/p prostatectomy (06/2017), BPH, colostomy, and ulcerative colitis s/p total colectomy presenting to the ED with a firm mass in his left groin. Differential Diagnoses Include But is Not Limited To: - Inguinal hernia - Bowel obstruction - Diverticulitis Prior Visits: Notes and results from previous visits were reviewed. On 11/16/2017, pt was seen in the Emergency department for abdominal pain and was admitted. Plan: - CBC - CMP - VBG - CT abdomen with PO and IV contrast - IV fluids - NPO Progress note: 04/09/18 10:32 - Patient is not complaining of pain. Patient is drinking PO contrast. Continuing home Ciprofloxacin IV. 04/09/18 11:32 - CT abdomen showed no acute findings. - Patient instructed to follow up with his surgeon for an elective hernia repair surgery. Patient is stable for discharge. (Kale Marquez) 04/09/18 08:28 Impression: 77 year old male presents to the Emergency department complaining of a firm mass on his left groin. In agreement with resident note, which includes further HPI details. Patient was seen and evaluated with resident, came up with plan and treatment together. Prior Visits: Notes and results from previous visits were reviewed. CT of Abdomen/Pelvis reviewed by radiologist, shows: Dictator : Deven Leung MD Report Date : 04/09/2018 11:17:49 IMPRESSION: No acute findings. Patient was explained CT results. He stood up and showed up the bulge in his left inguinal area. It appears to be an inguinal hernia that is easily reducible. No pain at this time. He was advised to return to this surgeon for follow up because he may need surgery. He stated that he would like a surgeon in this area and so I referred him to Dr. Dunbar who is pig conveyor operator. He felt comfortable with the plan for follow up and advised to return to the ED if symptoms worsen, unable to pass stool, vomiting, or any other concern. He was advised not to left anything heavy. (Rabines,Jovany L) - Lab Interpretations Lab Results: 04/09/18 09:40 04/09/18 09:40 Lab Results 04/09/18 09:40: Sodium 143, Potassium 4.9, Chloride 102, Carbon Dioxide 27, Anion Gap 19, BUN 23 H, Creatinine 1.1, Est GFR ( Amer) > 60, Est GFR ( Non-Af Amer) > 60, Random Glucose 92, Calcium 9.4, Total Bilirubin 0.3, AST 34, ALT 31, Alkaline Phosphatase 75, Total Protein 7.5, Albumin 4.4, Globulin 3.1, Albumin/Globulin Ratio 1.4 04/09/18 09:40: WBC 5.2 D, RBC 4.40, Hgb 14.3, Hct 40.4 L, MCV 91.8, MCH 32.5, MCHC 35.4, RDW 12.8, Plt Count 193, MPV 8.9, Gran % 62.2, Lymph % (Auto) 27.3, [place] % (Auto) 9.3 H, Eos % (Auto) 0.6 L, Baso % (Auto) 0.6, Gran # 3.22, Lymph # (Auto) 1.4, [place] # (Auto) 0.5, Eos # (Auto) 0.0, Baso # (Auto) 0.03 - RAD Interpretation Radiology Orders: 04/09/18 09:05 ABDOMEN & PELVIS [ABD PELVIS PO & IV CONTRAST] [CT] Stat - Medication Orders Current Medication Orders: Discontinued Medications Sodium Chloride (Sodium Chloride 0.9%) 1,000 mls @ 75 mls/hr IV .[id number] [facility] Last Admin: 04/09/18 09:30 Dose: 75 mls/hr eMAR Start Stop Document 04/09/18 09:30 SD (Rec: 04/09/18 09:31 SD [id number]) Intravenous Solution Start Date 04/09/18 Start Time 09:30 End Date 04/09/18 End time 12:00 Total Infusion Time 150 Ciprofloxacin (Cipro 400mg/200ml Dsw) 400 mg in 200 mls @ 133.3 mls/hr IVPB STAT STA PRN Reason: Protocol Stop: 04/09/18 10:58 Last Admin: 04/09/18 09:30 Dose: 133.3 mls/hr eMAR Start Stop Document 04/09/18 09:30 SD (Rec: 04/09/18 09:30 SZA [id number]) Intravenous Solution Start Date 04/09/18 Start Time 09:30 End Date 04/09/18 End time 11:01 Total Infusion Time 91 <Kale Marquez - Last Filed: 04/09/18 12:24> - PA / GAME FARM HELPER / Resident Statement /DO has reviewed & agrees with the documentation as recorded. MD/DO has examined the patient and agrees with the treatment plan. - Scribe Statement The provider has reviewed the documentation as recorded by the Scribe <Jovany Angulo - Last Filed: 04/09/18 13:08> - Scribe Statement Conchita Duke All medical record entries made by the Scribe were at my direction and personally dictated by me. I have reviewed the chart and agree that the record accurately reflects my personal performance of the history, physical exam, medical decision making, and the department course for this patient. I have also personally directed, reviewed, and agree with the discharge instructions and disposition. (Jovany Angulo) Disposition/Present on Arrival - Present on Arrival Any Indicators Present on Arrival: No History of DVT/PE: No History of Uncontrolled Diabetes: No Urinary Catheter: No History of Decub. Ulcer: No History Surgical Site Infection Following: None - Disposition Have Diagnosis and Disposition been Completed?: Yes Disposition Time: 11:41 Patient Plan: Discharge <Kale Marquez - Last Filed: 04/09/18 12:24> <Jovany Angulo - Last Filed: 04/09/18 13:08> - Disposition Diagnosis: Abdominal pain, Inguinal hernia Disposition: HOME/ ROUTINE Condition: IMPROVED Discharge Instructions (ExitCare): Inguinal and Femoral (Groin) Hernias, Acute Abdomen (Belly Pain) Additional Instructions: DURGA CARROLL, thank you for letting us take care of you today. Your provider was Jovany Angulo DO and you were treated for Abdominal Pain, Hernia. The emergency medical care you received today was directed at your acute symptoms. If you were prescribed any medication, please fill it and take as directed. It may take several days for your symptoms to resolve. Return to the Emergency Department if your symptoms worsen, do not improve, or if you have any other problems. Please contact your doctor or call one of the physicians/clinics you have been referred to that are listed on the Patient Visit Information form that is included in your discharge packet. Bring any paperwork you were given at discharge with you along with any medications you are taking to your follow up visit. Our treatment cannot replace ongoing medical care by a primary care provider outside of the emergency department. Thank you for allowing the [facility] team to be part of your care today. If you had an X-Ray or CT scan: A Radiologist will review the ED reading if any change in treatment is needed we will contact you. If you had a blood, urine, or wound culture: It will take several days for the results, if any change in treatment is needed we will contact you. If you had an STI test: It will take 48 hours for the results. Please call after 1 week if you have not heard back. Prescriptions: Acetaminophen [Tylenol Extra Strength] 500 mg PO Q4 #30 tablet Referrals: Sung Cooper MD [Family Provider] - Follow up with primary Byron Dunbar MD [Staff Provider] - Follow up with primary Forms: [employer] (Slovak), WORK NOTE
[2018-04-09 08:32] VITALS: BMI 24.4
[2018-04-09 08:42] VITALS: RESP 18
[2018-04-09] MEDS ORDERED: Iohexol 240 (50 ml) ONE (09:11)
[2018-04-09] MEDS ORDERED: Ciprofloxacin 200mg/100ml D5W 100 ML IVPB SCH (09:11)
[2018-04-09] MEDS ORDERED: Ciprofloxacin 400mg/200ml D5W 400 MG/200 ML BAG IVPB STA ×2 (09:17→09:28)
[2018-04-09] MEDS ORDERED: Sodium Chloride 0.9% 1,000 ML IV SCH (09:30)
[2018-04-09 09:51] LABS: BASO # 0.03 K/mm3 (0.0-2.0); BASO % 0.6 % (0.0-3.0); EOS % 0.6 % (1.5-5.0); GRAN # 3.22 (1.4-6.5); GRAN % 62.2 % (50.0-68.0); HEMOGLOBIN 14.3 g/dL (14.0-18.0); LYMPH # 1.4 (1.2-3.4); LYMPH % 27.3 % (22.0-35.0); MEAN CELL VOLUME 91.8 fl (80.0-105.0); MEAN CORPUSCULAR HEMOGLOBIN 32.5 pg (25.0-35.0); MEAN CORPUSCULAR HGB CONC 35.4 g/dl (31.0-37.0); MEAN PLATELET VOLUME 8.9 fl (7.0-11.0); MONO # 0.5 (0.1-0.6); MONO % 9.3 % (1.0-6.0); RBC 4.4 10^6/uL (3.5-6.1); RED CELL DISTRIBUTION WIDTH 12.8 % (11.5-14.5); WHITE BLOOD COUNT 5.2 10^3/ul (4.5-11.0)
[2018-04-09] MEDS ORDERED: Iohexol 350 MG/100 ML VIAL ONE (10:06)
[2018-04-09 10:07] LABS: ALB/GLOB RATIO 1.4 (1.1-1.8); ALBUMIN 4.4 g/dL (3.0-4.8); ALT/SGPT 31 U/L (7-56); AST/SGOT 34 U/L (17-59); BLOOD UREA NITROGEN 23 mg/dL (7-21); CALCIUM 9.4 mg/dL (8.4-10.5); GFR NON-AFRICAN AMERICAN > 60
--- NOTE | 2018-04-09 11:19 | CT ---
Date of service: 04/09/2018 PROCEDURE: CT Abdomen and Pelvis with contrast HISTORY: rule out bowel obstruction COMPARISON: None. TECHNIQUE: Contrast dose: 100 cc of Omni 350 Radiation dose: Total exam DLP = 674 mGy-cm. This CT exam was performed using one or more of the following dose reduction techniques: Automated exposure control, adjustment of the mA and/or kV according to patient size, and/or use of iterative reconstruction technique. FINDINGS: LOWER THORAX: Unremarkable. LIVER: Unremarkable. No gross lesion or ductal dilatation. GALLBLADDER AND BILE DUCTS: Gallbladder removed PANCREAS: Unremarkable. No gross lesion or ductal dilatation. SPLEEN: Unremarkable. ADRENALS: Unremarkable. No mass. KIDNEYS AND URETERS: Unremarkable. No hydronephrosis. No solid mass. VASCULATURE: Unremarkable. No aortic aneurysm. BOWEL: Previous total colectomy. Right lower quadrant ileostomy. There is a parastomal hernia containing nondilated segments of small bowel. APPENDIX: Normal appendix. PERITONEUM: Unremarkable. No free fluid. No free air. LYMPH NODES: Unremarkable. No enlarged lymph nodes. BLADDER: There is some chronic mural thickening in the bladder. This is unchanged REPRODUCTIVE: Unremarkable. BONES: No acute fracture. OTHER FINDINGS: None. IMPRESSION: No acute findings
[2018-04-09 12:37] VITALS: O2SAT 99
[2018-04-09 12:38] VITALS: BP 149/76; PULSE 74; TEMP 98.2
== END 2018-04-09 12:40 | disposition home or self-care (01) ==
LOC: ED 08:08
DX: K40.90 Unilateral inguinal hernia, without obstruction or gangrene, not specified as recurrent (principal); R10.9 Unspecified abdominal pain
CPT/HCPCS: 74177; 80053; 85025; 96361; 96365; 96366; 99283; J0744; J7030; Q9966; Q9967

== ENCOUNTER 2018-05-04 06:22 | Day surgery (SDC) | payer MEDICARE ==
[2018-05-04] MEDS ORDERED: Propofol 10 mg/ml Inj (20 ML) ONE (07:35)
[2018-05-04] MEDS ORDERED: Bupivacaine 0.5% Inj(30mL) ONE (07:37)
[2018-05-04] MEDS ORDERED: Phenylephrine 10 mg/ml Inj ONE (07:40)
[2018-05-04] MEDS ORDERED: Succinylcholine 200 mg/10 ml Inj IV ONE (07:43)
[2018-05-04 08:06] VITALS: RESP 18
[2018-05-04] MEDS ORDERED: Rocuronium 10 mg/ml (5 ml) ONE (08:14)
[2018-05-04] MEDS ORDERED: Bupivacaine 0.5% Inj(30mL) IJ ONE ×2 (08:20)
[2018-05-04] MEDS ORDERED: Neostigmine Methylsulfate 3mg/3ml Syringe IV ONE (08:45)
[2018-05-04] MEDS ORDERED: ePHEDrine 50 mg/ml Inj ONE (08:54)
[2018-05-04] MEDS ORDERED: Esmolol 100 mg/10ml Inj IV ONE (09:05)
[2018-05-04] MEDS ORDERED: HYDROmorphone 0.5 mg/0.5 ml ISec IVP PRN (09:22)
--- NOTE | 2018-05-04 09:23 | PCM.SURG1 ---
Surgeon's Initial Post Op Note - Surgeon's Notes Surgeon: Dr. Torres Sports Physical Therapist: Dr. Valle PGY4 Type of Anesthesia: General Endo Anesthesia Administered By: Luzma Pre-Operative Diagnosis: Left Inguinal hernia Operative Findings: same Post-Operative Diagnosis: Left Inguinal hernia Operation Performed: Left Inguinal Hernia Repair with mesh Specimen/Specimens Removed: cord lipoma Estimated Blood Loss: EBL {In ML}: 2 Blood Products Given: N/A Drains Used: No Drains Post-Op Condition: Good Date of Surgery/Procedure: 05/04/18 Time of Surgery/Procedure: 09:23
[2018-05-04] MEDS ORDERED: Lactated Ringer's 1,000 ML IV SCH (09:30)
[2018-05-04] MEDS ORDERED: HYDROmorphone 0.5 mg/0.5 ml ISec IVP ONE ×3 (09:32→10:02)
[2018-05-04] MEDS ORDERED: HYDROmorphone 0.5 mg/0.5 ml ISec ONE ×3 (09:32→10:03)
[2018-05-04 10:57] VITALS: TEMP 98.1
[2018-05-04] MEDS ORDERED: Oxycodone/Acetaminophen 5/325 mg Tab PO PRN (11:00)
[2018-05-04 11:42] VITALS: O2SAT 97
[2018-05-04 14:16] VITALS: BP 122/70; PULSE 79
--- NOTE | 2018-05-07 13:49 | OP ---
PROCEDURE DATE: 05/04/2018 SURGEON: Uriah Torres MD MANAGER OF PRODUCT: Loren Valle DO, PGY-4. PREOPERATIVE DIAGNOSIS: Left inguinal hernia. PROCEDURE: Mesh repair of left inguinal hernia. POSTOPERATIVE DIAGNOSIS: Left inguinal hernia. INDICATIONS: This is a 77-year-old male who developed a symptomatic left inguinal hernia. It was not found to be incarcerated or strangulated; however, he was experiencing pain in the region and repair was indicated. DESCRIPTION OF PROCEDURE: The patient was taken to the operating room. A time-out was completed verifying correct patient, procedure, site positioning, and mesh prior to beginning the procedure. General anesthesia was induced. The left groin was prepped and draped in the usual sterile fashion. An incision was made in a natural skin crease midway between the pubic tubercle and anterior superior iliac spine. The skin crease incision was made with a knife and deepened through Neal and Camper fascia using electrocautery until the aponeurosis of the external oblique was encountered. The external oblique aponeurosis was then cleaned and the external ring was exposed. An incision was made in the midportion of the external oblique aponeurosis in the direction of its fibers. This was carried down through opening the external ring. The ilioinguinal nerve was identified and protected. Flaps of the external oblique were then developed cephalad and inferiorly. The cord was identified and gently dissected free at the pubic tubercle. It was then encircled with a Karthik drain and retracted laterally. Attention was directed to the anteromedial aspect of the cord where an indirect hernia sac was identified. The sac was carefully dissected free of the cord down to the level of the internal ring. The vas and testicular vessels were identified and protected from harm. The femoral canal was palpated and no femoral hernia was identified. The sac was then reduced into the abdomen. An absorbable mesh plus was placed into the internal ring and sutured to the transversalis fascia and internal oblique muscle. Attention was then turned to the floor of the canal, which did not appear to be grossly weakened. The flat portion of the absorbable mesh was then cut to appropriate size with an oval medial portion of longitudinal lateral opening. The mesh was sutured to the inguinal ligament inferiorly and the conjoint tendon superiorly using Vicryl suture. Care was taken to assure that the mesh was placed in a relaxed fashion to avoid any excessive tension. Laterally, the tails of the mesh were crossed and the internal ring recreated. Hemostasis was again checked. A cord lipoma was removed from the cord. The Ashmore drain was then removed from around the cord and the cord allowed to retract back into place. The external oblique aponeurosis was closed with a running suture of 3-0 Vicryl with care not to catch the ilioinguinal nerve in the suture line. Neal fascia was then closed with additional interrupted 3-0 Vicryl suture. The skin was closed with a subcuticular suture of 4-0 Monocryl. Topical skin adhesive was applied. The testes were gently pulled down into its anatomic position in the scrotum. The patient was extubated. The patient tolerated the procedure well and was taken to the postanesthesia care unit in stable condition. Loren Valle DO Uriah Torres MD
== END 2018-05-04 14:00 | disposition home or self-care (01) ==
LOC: SDS 06:22
PROVIDERS: ATTEND Surgery
DX: K40.90 Unilateral inguinal hernia, without obstruction or gangrene, not specified as recurrent (principal); D17.6 Benign lipomatous neoplasm of spermatic cord
CPT/HCPCS: 49505; 88302; C1781; J0330; J0690; J1100; J1170; J2001; J2370; J2405; J2704; J2710; J3010; J7120 ×2

== ENCOUNTER 2018-08-19 11:13 | Emergency (ER) | payer MEDICARE ==
[2018-08-19 11:14] VITALS: BMI 24.4
[2018-08-19 11:28] VITALS: RESP 18
[2018-08-19 11:29] VITALS: TEMP 97.3
--- NOTE | 2018-08-19 12:00 | ED PDOC ---
Arrival/HPI - General Chief Complaint: Abdominal Pain Time Seen by Provider: 08/19/18 11:17 - History of Present Illness Narrative History of Present Illness (Text): 77 y/o M c PMHx ulcerative colitis s/p total colectomy s/p colostomy 2 years ago, prostate cancer s/p prostatectomy and radiation today p/w abdominal pain x 2-3 hours. Pain is around ostomy site and lower abdomen, constant associated with nausea. Liquid brown stool in ostomy bag. Denies fever, chills, chest pain, vomiting, dyspnea, dysuria. Past Medical History - Provider Review Nursing Documentation Reviewed: Yes - Infectious Disease Hx of Infectious Diseases: None - Tetanus Immunization Tetanus Immunization: Unknown - Cardiac Hx Pacemaker: No - Pulmonary Hx Respiratory Disorders: No Hx Asthma: No Hx Bronchitis: Yes Hx Chronic Obstructive Pulmonary Disease (COPD): Yes Hx Emphysema: No Hx Pneumonia: No Hx Respiratory Aspiration: No Hx Respiratory Tract Infection: No Hx Sleep Apnea: No Hx Tuberculosis: No - Neurological Hx Paralysis: No - HEENT Hx HEENT Disorder: No Hx Blind: No Hx Cataracts: Yes Hx Deafness: No Hx Difficulty Chewing: No Hx Epistaxis: No Hx Glaucoma: No Hx Macular Degeneration: Yes - Renal Hx Renal Disorder: No Hx Dialysis: No Hx Kidney Stones: No Hx Neurogenic Bladder: No Hx Pyelonephritis: No Hx Renal Cancer: No Hx Renal Failure: No - Endocrine/Metabolic Hx Endocrine Disorders: No Hx Adrenal Cancer: No Hx Diabetes Insipidus: No Hx Diabetes Mellitus Type 1: No Hx Diabetes Mellitus Type 2: No Hx Hyperthyroidism: No Hx Hypothyroidism: No Hx Systemic Lupus Erythematosus: No - Hematological/Oncological Hx Blood Transfusions: No Hx Blood Transfusion Reaction: No Hx Cancer: Yes (prostate,colon) - Integumentary Hx Dermatological Disorder: No Hx Basal Cell Carcinoma: No Hx Eczema: No Hx Melanoma: No Hx Psoriasis: No Hx Squamous Cell Carcinoma: No - Musculoskeletal/Rheumatological Hx Musculoskeletal Disorders: No - Gastrointestinal Hx Colostomy: Yes - Genitourinary/Gynecological Hx Prostate Problems: Yes - Psychiatric Hx Emotional Abuse: No Hx Physical Abuse: No Hx Substance Use: No - Surgical History Other/Comment: coloctomy - Anesthesia Hx Anesthesia: Yes Hx Anesthesia Reactions: Yes (NAUSEA/VOMITING) Hx Malignant Hyperthermia: No - Suicidal Assessment Feels Threatened In Home Enviroment: No Family/Social History - Physician Review Nursing Documentation Reviewed: Yes Family/Social History: No Known Family HX Smoking Status: Former Smoker Hx Alcohol Use: No Hx Substance Use: No Hx Substance Use Treatment: No Allergies/Home Meds Allergies/Adverse Reactions: Allergies No Known Allergies Allergy (Verified 08/19/18 11:29) Home Medications: Home Meds Medication Instructions Recorded Confirmed Arformoterol [Brovana] 15 mcg NEB DAILY 04/22/18 08/19/18 Budesonide [Pulmicort Respules] 0.25 mg NEB DAILY 04/22/18 08/19/18 Review of Systems - Physician Review All systems were reviewed & negative as marked: Yes - Review of Systems Constitutional: absent: Fevers Cardiovascular: absent: Chest Pain Physical Exam - Physical Exam Narrative Physical Exam (Text): Gen: NAD Head: NC/AT Eyes: PERRL ENT: MMM Neck: Supple Chest: No tenderness CV: Regular rate Lungs: CTA b/l Abd: Soft, R sided colostomy bag Back: No CVA tenderness Skin: No rash Extremities: No edema or tenderness Neuro: Alert, no focal deficit Vital Signs Temp Pulse Resp BP Pulse Ox 08/19/18 11:27 81 18 153/88 H 100 08/19/18 11:22 97.3 F L 84 18 153/88 H 98 Medical Decision Making ED Course and Treatment: 08/19/2018 13:27 Abd/Pelvis CT IMPRESSION: Previous total colectomy. Right lower quadrant ileostomy. Multiple mildly dilated loops of small bowel with no transition point identified. Fluid- filled stomach findings may represent a mild ileus. Dictator: Deven Fitzpatrick MD After CT and at reassessment, patient states significant amount of stool and gas expelled into ostomy bag with complete relief of symptoms. Will discharge, f/u PMD, instructed to return to ED for any worsening pain, distention, vomiting. - RAD Interpretation Radiology Orders: 08/19/18 11:57 ABD & PELVIS IV CONTRAST ONLY [CT] Stat Disposition/Present on Arrival - Present on Arrival Any Indicators Present on Arrival: No History of DVT/PE: No History of Uncontrolled Diabetes: No Urinary Catheter: No History of Decub. Ulcer: No History Surgical Site Infection Following: None - Disposition Have Diagnosis and Disposition been Completed?: Yes Diagnosis: Ileus Disposition: HOME/ ROUTINE Disposition Time: 14:05 Patient Plan: Discharge Condition: STABLE Discharge Instructions (ExitCare): Postoperative Ileus (DC) Referrals: Sung Cooper MD [Family Provider] - Follow up with primary Forms: [employer] (Citizen Of [place])
[2018-08-19 12:25] LABS: BASO # 0.01 K/mm3 (0.0-2.0); BASO % 0.2 % (0.0-3.0); EOS % 0.3 % (1.5-5.0); GRAN # 4.3 (1.4-6.5); GRAN % 73.5 % (50.0-68.0); HEMOGLOBIN 14.2 g/dL (14.0-18.0); LYMPH % 17.8 % (22.0-35.0); MEAN CELL VOLUME 95.7 fl (80.0-105.0); MEAN CORPUSCULAR HEMOGLOBIN 32.4 pg (25.0-35.0); MEAN CORPUSCULAR HGB CONC 33.9 g/dl (31.0-37.0); MEAN PLATELET VOLUME 8.5 fl (7.0-11.0); MONO # 0.5 (0.1-0.6); MONO % 8.2 % (1.0-6.0); RBC 4.38 10^6/uL (3.5-6.1); WHITE BLOOD COUNT 5.9 10^3/uL (4.5-11.0)
[2018-08-19 12:34] LABS: INR 1.03; PARTIAL THROMBOPLASTIN TIME 27.9 Seconds (25.1-36.5); PROTHROMBIN TIME 11.8 SECONDS (9.4-12.5)
[2018-08-19 12:38] LABS: ALB/GLOB RATIO 1.3 (1.1-1.8); ALBUMIN 4.5 g/dL (3.0-4.8); ALT/SGPT 49 U/L (7-56); AST/SGOT 38 U/L (17-59); BLOOD UREA NITROGEN 20 mg/dL (7-21); GFR NON-AFRICAN AMERICAN > 60; LIPASE 54 U/L (23-300)
--- NOTE | 2018-08-19 13:30 | CT ---
Date of service: 08/19/2018 PROCEDURE: CT Abdomen and Pelvis with contrast HISTORY: abd pain, h/o colectomy, prostate radiation today COMPARISON: None. TECHNIQUE: Contrast dose: 150 cc of Omni 350 Radiation dose: Total exam DLP = 658.17 mGy-cm. This CT exam was performed using one or more of the following dose reduction techniques: Automated exposure control, adjustment of the mA and/or kV according to patient size, and/or use of iterative reconstruction technique. FINDINGS: LOWER THORAX: Unremarkable. LIVER: Unremarkable. No gross lesion or ductal dilatation. GALLBLADDER AND BILE DUCTS: Gallbladder removed PANCREAS: Unremarkable. No gross lesion or ductal dilatation. SPLEEN: Unremarkable. ADRENALS: Unremarkable. No mass. KIDNEYS AND URETERS: Unremarkable. No hydronephrosis. No solid mass. VASCULATURE: Unremarkable. No aortic aneurysm. No aortic atherosclerotic calcification or mural plaque present. BOWEL: Previous total colectomy. Right lower quadrant ileostomy. Multiple mildly dilated loops of small bowel with no transition point identified. Fluid-filled stomach findings may represent a mild ileus APPENDIX: Normal appendix. PERITONEUM: Unremarkable. No free fluid. No free air. LYMPH NODES: Unremarkable. No enlarged lymph nodes. BLADDER: Unremarkable. REPRODUCTIVE: Unremarkable. BONES: No acute fracture. OTHER FINDINGS: None. IMPRESSION: Previous total colectomy. Right lower quadrant ileostomy. Multiple mildly dilated loops of small bowel with no transition point identified. Fluid-filled stomach findings may represent a mild ileus
[2018-08-19 14:21] VITALS: BP 148/81; PULSE 78; O2SAT 98
--- NOTE | 2018-08-19 18:46 | CARD ---
APPROVED REPORT Date of service: 08/19/2018 EKG Measurement Heart [id number] <Conclusion> Normal sinus rhythm Normal ECG
== END 2018-08-19 14:24 | disposition home or self-care (01) ==
LOC: ED 11:13
DX: K56.7 Ileus, unspecified (principal); Z90.49 Acquired absence of other specified parts of digestive tract; Z93.3 Colostomy status
CPT/HCPCS: 74177; 80053; 83690; 85025; 85610; 85730; 93005; 96374; 99284; J2405; Q9967

== ENCOUNTER 2018-10-20 09:19 | Outpatient (CLI) | payer MEDICARE | END 2018-10-20 09:20 | disposition home or self-care (01) | LOC: RAD 09:19 | DX: K43.5 Parastomal hernia without obstruction or gangrene (principal) ==

== ENCOUNTER 2018-12-02 13:05 | Inpatient (IN) | payer MEDICARE ==
[2018-12-02 13:06] VITALS: BMI 24.4
--- NOTE | 2018-12-02 13:46 | ED PDOC ---
Arrival/HPI - General Chief Complaint: Abdominal Pain Time Seen by Provider: 12/02/18 13:24 Historian: Patient - History of Present Illness Narrative History of Present Illness (Text): 12/02/18 13:43 77 y/o male, pmh including ulcerative colitis/cystitis/abdominal hernia/colostomy bag, nkda, c/o epigastric and mid abdominal pain started today. Pt. stated that he has epigastric mid abdominal pain today, on and off, cramping/aching pain, no fever or chills, no nausea/vomiting, no night sweat, no dizziness, no change in vision, no tearing sensation or pain, no rash, no dizziness, no other medical or psychological complaints. PMD: Dr. Montalvo GI: Dr. Aragon Surgery: Dr. Torres Past Medical History - Provider Review Nursing Documentation Reviewed: Yes - Infectious Disease Hx of Infectious Diseases: None - Tetanus Immunization Tetanus Immunization: Unknown - Cardiac Hx Pacemaker: No - Pulmonary Hx Respiratory Disorders: No Hx Asthma: No Hx Bronchitis: Yes Hx Chronic Obstructive Pulmonary Disease (COPD): Yes Hx Emphysema: No Hx Pneumonia: No Hx Respiratory Aspiration: No Hx Respiratory Tract Infection: No Hx Sleep Apnea: No Hx Tuberculosis: No - Neurological Hx Paralysis: No - HEENT Hx HEENT Disorder: No Hx Blind: No Hx Cataracts: Yes Hx Deafness: No Hx Difficulty Chewing: No Hx Epistaxis: No Hx Glaucoma: No Hx Macular Degeneration: Yes - Renal Hx Renal Disorder: No Hx Dialysis: No Hx Kidney Stones: No Hx Neurogenic Bladder: No Hx Pyelonephritis: No Hx Renal Cancer: No Hx Renal Failure: No - Endocrine/Metabolic Hx Endocrine Disorders: No Hx Adrenal Cancer: No Hx Diabetes Insipidus: No Hx Diabetes Mellitus Type 1: No Hx Diabetes Mellitus Type 2: No Hx Hyperthyroidism: No Hx Hypothyroidism: No Hx Systemic Lupus Erythematosus: No - Hematological/Oncological Hx Blood Transfusions: No Hx Blood Transfusion Reaction: No Hx Cancer: Yes (prostate,colon) - Integumentary Hx Dermatological Disorder: No Hx Basal Cell Carcinoma: No Hx Eczema: No Hx Melanoma: No Hx Psoriasis: No Hx Squamous Cell Carcinoma: No - Musculoskeletal/Rheumatological Hx Musculoskeletal Disorders: No - Gastrointestinal Hx Colostomy: Yes - Genitourinary/Gynecological Hx Prostate Problems: Yes - Psychiatric Hx Emotional Abuse: No Hx Physical Abuse: No Hx Substance Use: No - Surgical History Other/Comment: coloctomy, prostate removal - Anesthesia Hx Anesthesia: Yes Hx Anesthesia Reactions: Yes (NAUSEA/VOMITING) Hx Malignant Hyperthermia: No - Suicidal Assessment Feels Threatened In Home Enviroment: No Family/Social History - Physician Review Nursing Documentation Reviewed: Yes Family/Social History: Unknown Family HX Smoking Status: Former Smoker Hx Alcohol Use: No Hx Substance Use: No Hx Substance Use Treatment: No Allergies/Home Meds Allergies/Adverse Reactions: Allergies No Known Allergies Allergy (Verified 12/02/18 13:17) Home Medications: Home Meds Medication Instructions Recorded Confirmed Arformoterol [Brovana] 15 mcg NEB DAILY 04/22/18 12/02/18 Budesonide [Pulmicort Respules] 0.25 mg NEB DAILY 04/22/18 12/02/18 Review of Systems - Review of Systems Constitutional: absent: Fatigue, Fevers Eyes: absent: Vision Changes ENT: absent: Hearing Changes Respiratory: absent: SOB, Cough Cardiovascular: absent: Chest Pain Gastrointestinal: Abdominal Pain. absent: Diarrhea, Nausea, Vomiting Musculoskeletal: absent: Arthralgias, Back Pain Skin: absent: Rash, Pruritis Neurological: absent: Headache Psychiatric: absent: Anxiety, Depression, Suicidal Ideation Physical Exam Vital Signs Reviewed: Yes Vital Signs Temp Pulse Resp BP Pulse Ox 12/02/18 13:14 97.7 F 82 18 131/78 100 Temperature: Afebrile Blood Pressure: Normal Pulse: Regular Respiratory Rate: Normal Appearance: Positive for: Well-Appearing, Non-Toxic, Comfortable Pain Distress: Moderate Mental Status: Positive for: Alert and Oriented X 3 - Systems Exam Head: Present: Atraumatic, Normocephalic Pupils: Present: PERRL Extroacular Muscles: Present: EOMI Conjunctiva: Present: Normal Mouth: Present: Moist Mucous Membranes Neck: Present: Normal Range of Motion Respiratory/Chest: Present: Clear to Auscultation, Good Air Exchange. No: Respiratory Distress, Accessory Muscle Use, Wheezes, Decreased Breath Sounds, Rales, Retracting, Rhonchi, Tachypneic, Tender to Palpation Cardiovascular: Present: Regular Rate and Rhythm, Normal S1, S2. No: Murmurs Abdomen: Present: Tenderness (epigastric and mid abdomen region), Normal Bowel Sounds. No: Distention, Peritoneal Signs, Rebound, Guarding, McBurney's Point Tender, Rovsing's Sign Present, Scars Back: Present: Normal Inspection. No: CVA Tenderness, Midline Tenderness, Paraspinal Tenderness, Pain with Leg Raise, Decubitus Ulcer Upper Extremity: Present: Normal Inspection. No: Cyanosis, Edema Lower Extremity: Present: Normal Inspection. No: Edema Neurological: Present: GCS=15, CN II-XII Intact, Speech Normal, Motor Func Grossly Intact, Normal Cerebellar Funct, Gait Normal, Memory Normal Skin: Present: Warm, Dry, Normal Color. No: Rashes Psychiatric: Present: Alert, Oriented x 3, Normal Insight, Normal Concentration Medical Decision Making ED Course and Treatment: 12/02/18 13:46 Cardiac arrythmia vs. pancreatitis vs. gastritis vs. Colitis vs. bowel obstruction -Labs -ekg -cxr -IVF/pepcid -Observe and reassess 12/02/18 17:12 -EKG: NSR @ 77 BPM, no ST elevation or depression, no T wave inversion, normal DE/QRS/QT intervals. -Chest xray No active disease. No significant interval change compared to the prior examination(s). -CT abdomen and pelvis: Total colectomy. Right lower quadrant ostomy with stable parastomal hernia, without obstruction, though there are some dilated small bowel loops in the anterior upper abdomen. There is evidence of pneumatosis intestinalis as well as a small amount of intraperitoneal air. This is concerning for bowel perforation though this may also be seen with pneumatosis intestinalis without kayla bowel perforation. Consider surgical consultation. Possible cystitis. Correlate with urinalysis. Additional nonemergent findings as above. -Labs are non significant -Trop is negative -Lipase is negative -UA show no UTI 12/02/18 17:26 -PH 7.35 and lactic 0.9 -Surgical team paged, Dr. Torres is on the case for consult as request by the patient as I am clinically concern for micro-perforation in the abdomen that's not well visualized. -I discussed with the patient, he agreed to be admitted with IV cipro and flagyl/pt/ptt/vbg shock panel ordered. 12/02/18 19:20 - stated that he is not available, recommend contact instructional systems designer general surgeon Dr. Dunbar as per surgical supply assistant Alize Carter which she is speaking to Dr. Dunbar for further plan of care. 12/02/18 20:01 -Dr. Carter (surgical supply assistant) and Dr. Dunbar, recommend no OR at this time, agreed with ciprofloxacin/flagyl and admission to hospitalist and they would f ollow up clinically. -Paging hospitalist for admission. 12/02/18 20:33 -I discussed the with Dr. Hernandez (night hospitalist) and the bio medical technician, discussed about the case/labs/radiology result and the general surgeon is on this case, DR. Hernandez and his medical team will continue the medical care and follow up with the surgeon as well. - Critical Care Critical Care Minutes: 30 minutes Critical Care Time: Unstable Narrative Critical Care (Text): 12/02/18 19:23 free intra-abdominal air, possible intestinal perforation, surgical consult/evaluation. - RAD Interpretation Radiology Orders: 12/02/18 13:41 ABD PELVIS PO & IV CONTRAST [CT] Stat CHEST PORTABLE [RAD] Stat -Chest xray Date of service: 12/02/2018 HISTORY: Mid abdominal pain. COMPARISON: 03/03/2018. FINDINGS: LUNGS: No active pulmonary disease. PLEURA: No significant pleural effusion identified, no pneumothorax apparent. CARDIOVASCULAR: No atherosclerotic calcification present Normal. OSSEOUS STRUCTURES: No significant abnormalities. VISUALIZED UPPER ABDOMEN: Normal. OTHER FINDINGS: None. IMPRESSION: No active disease. No significant interval change compared to the prior examination(s). -CT abdomen and pelvis: Date of service: 12/02/2018 PROCEDURE: CT Abdomen and Pelvis with contrast HISTORY: rt. sided stoma, mid abd pain COMPARISON: None. TECHNIQUE: Contrast dose: 147 cc Omnipaque 350 Radiation dose: Total exam DLP = 801.37 mGy-cm. This CT exam was performed using one or more of the following dose reduction techniques: Automated exposure control, adjustment of the mA and/or kV according to patient size, and/or use of iterative reconstruction technique. FINDINGS: LOWER THORAX: Unremarkable. LIVER: Normal size, contour and attenuation. Tiny nonspecific low-attenuation lesion in the left hepatic lobe, unchanged. No biliary dilatation. GALLBLADDER AND BILE DUCTS: Cholecystectomy. Mild dilatation of the common bile duct to a 10 mm diameter without associated intrahepatic biliary dilatation. Consistent with patient age and prior cholecystectomy. PANCREAS: Unremarkable. No gross lesion or ductal dilatation. SPLEEN: Unremarkable. ADRENALS: Unremarkable. No mass. KIDNEYS AND URETERS: Mid left renal cortical cyst, 2.3 cm. This measures 27 Hounsfield units, higher than expected for a simple cyst. Lower pole cortical cyst, 1.7 cm. This measures 13 Hounsfield units. Both of the cysts have increased in size when compared to examination of 12/12/2014. However, they were both demonstrated to represent cysts on ultrasound of 07/31/2017. Therefore, no further evaluation is advised. Several very small right renal cortical cysts. No calculus or hydronephrosis. VASCULATURE: Unremarkable. No aortic aneurysm. There is atherosclerotic calcification of the abdominal aorta. BOWEL: Status post total colectomy. Right lower quadrant ostomy . There is parastomal herniation of small bowel. There is dilatation of some loops of small bowel in the anterior upper abdomen. There is no generalized pattern to suggest mechanical bowel obstruction, however. 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 There is a small amount of free air within the mesenteric fat of the left abdomen best demonstrated on series 3, image 86 through 92. There is also a small amount of air seen outside the bowel lumen in the right lower quadrant of the abdomen. Findings consistent with bowel perforation or pneumatosis intestinalis with rupture. APPENDIX: Colectomy PERITONEUM: Unremarkable. No free fluid. No free air. LYMPH NODES: Unremarkable. No enlarged lymph nodes. BLADDER: Poorly distended. The bladder wall is mildly thickened. This is most likely due to underdistention. However, there is mild perivesical stranding in the possibility of cystitis should also be considered. There is a small diverticulum in the midline posterior bladder base. Several potential small diverticula are appreciated also in the region of the trigone. REPRODUCTIVE: Status post prostatectomy. BONES: No acute fracture. OTHER FINDINGS: None. IMPRESSION: Total colectomy. Right lower quadrant ostomy with stable parastomal hernia, without obstruction, though there are some dilated small bowel loops in the anterior upper abdomen. There is evidence of pneumatosis intestinalis as well as a small amount of intraperitoneal air. This is concerning for bowel perforation though this may also be seen with pneumatosis intestinalis without kayla bowel perforation. Consider surgical consultation. Possible cystitis. Correlate with urinalysis. Additional nonemergent findings as above. Effervescent Salts Compounder: Radiologist - EKG Interpretation EKG Interpretation (Text): 12/02/18 13:47 Interpreted by ED Physician: Yes - Medication Orders Current Medication Orders: Famotidine (Pepcid) 20 mg IVP STAT STA Stop: 12/02/18 13:42 - PA / WINCHER / Resident Statement MD/DO has reviewed & agrees with the documentation as recorded. Disposition/Present on Arrival - Present on Arrival Any Indicators Present on Arrival: No History of DVT/PE: No History of Uncontrolled Diabetes: No Urinary Catheter: No History of Decub. Ulcer: No History Surgical Site Infection Following: None - Disposition Have Diagnosis and Disposition been Completed?: Yes Diagnosis: Abdominal pain, Intra-abdominal free air of unknown etiology Disposition: HOSPITALIZED Disposition Time: 19:26 Patient Plan: Admission, Observation, Telemetry Patient Problems: Current Active Problems Problem Status Onset Abdominal pain Acute Intra-abdominal free air of unknown etiology Acute Condition: GUARDED
[2018-12-02] MEDS ORDERED: Iohexol 240 (50 ml) ONE (13:58)
[2018-12-02 14:09] LABS: BASO # 0.01 K/mm3 (0.0-2.0); BASO % 0.2 % (0.0-3.0); EOS # 0.2 (0.0-0.7); EOS % 4.1 % (1.5-5.0); HEMOGLOBIN 12.9 g/dL (14.0-18.0); LYMPH # 1.2 (1.2-3.4); LYMPH % 24.9 % (22.0-35.0); MEAN CELL VOLUME 96.2 fl (80.0-105.0); MEAN CORPUSCULAR HEMOGLOBIN 32.8 pg (25.0-35.0); MEAN CORPUSCULAR HGB CONC 34.1 g/dl (31.0-37.0); MEAN PLATELET VOLUME 8.6 fl (7.0-11.0); MONO # 0.5 (0.1-0.6); MONO % 9.9 % (1.0-6.0); RBC 3.93 10^6/uL (3.5-6.1); RED CELL DISTRIBUTION WIDTH 13.2 % (11.5-14.5); WHITE BLOOD COUNT 4.9 10^3/uL (4.5-11.0)
[2018-12-02 14:18] LABS: ALB/GLOB RATIO 1.4 (1.1-1.8); ALT/SGPT 38 U/L (7-56); AST/SGOT 41 U/L (17-59); BLOOD UREA NITROGEN 18 mg/dL (7-21); CALCIUM 9.1 mg/dL (8.4-10.5); GFR NON-AFRICAN AMERICAN > 60; LIPASE 50 U/L (23-300)
[2018-12-02 14:28] LABS: TROPONIN I < 0.01 ng/mL
--- NOTE | 2018-12-02 16:51 | RAD ---
Date of service: 12/02/2018 HISTORY: Mid abdominal pain. COMPARISON: 03/03/2018. FINDINGS: LUNGS: No active pulmonary disease. PLEURA: No significant pleural effusion identified, no pneumothorax apparent. CARDIOVASCULAR: No atherosclerotic calcification present Normal. OSSEOUS STRUCTURES: No significant abnormalities. VISUALIZED UPPER ABDOMEN: Normal. OTHER FINDINGS: None. IMPRESSION: No active disease. No significant interval change compared to the prior examination(s).
[2018-12-02 17:05] LABS: PH,URINE 6.5 (4.7-8.0); URINE BILIRUBIN NEGATIVE (NEGATIVE); URINE BLOOD NEGATIVE (NEGATIVE); URINE GLUCOSE (UA) NEGATIVE (NEGATIVE); URINE LEUKOCYTE ESTERASE NEGATIVE Leu/uL (NEGATIVE); URINE PROTEIN NEGATIVE mg/dL (<30 mg/dL); URINE UROBILINOGEN 0.2 E.U./dL (<1 E.U./dL)
[2018-12-02 17:08] LABS: URINE APPEARANCE CLEAR (CLEAR); URINE COLOR YELLOW (YELLOW)
--- NOTE | 2018-12-02 17:13 | CT ---
Date of service: 12/02/2018 PROCEDURE: CT Abdomen and Pelvis with contrast HISTORY: rt. sided stoma, mid abd pain COMPARISON: None. TECHNIQUE: Contrast dose: 147 cc Omnipaque 350 Radiation dose: Total exam DLP = 801.37 mGy-cm. This CT exam was performed using one or more of the following dose reduction techniques: Automated exposure control, adjustment of the mA and/or kV according to patient size, and/or use of iterative reconstruction technique. FINDINGS: LOWER THORAX: Unremarkable. LIVER: Normal size, contour and attenuation. Tiny nonspecific low-attenuation lesion in the left hepatic lobe, unchanged. No biliary dilatation. GALLBLADDER AND BILE DUCTS: Cholecystectomy. Mild dilatation of the common bile duct to a 10 mm diameter without associated intrahepatic biliary dilatation. Consistent with patient age and prior cholecystectomy. PANCREAS: Unremarkable. No gross lesion or ductal dilatation. SPLEEN: Unremarkable. ADRENALS: Unremarkable. No mass. KIDNEYS AND URETERS: Mid left renal cortical cyst, 2.3 cm. This measures 27 Hounsfield units, higher than expected for a simple cyst. Lower pole cortical cyst, 1.7 cm. This measures 13 Hounsfield units. Both of the cysts have increased in size when compared to examination of 12/12/2014. However, they were both demonstrated to represent cysts on ultrasound of 07/31/2017. Therefore, no further evaluation is advised. Several very small right renal cortical cysts. No calculus or hydronephrosis. VASCULATURE: Unremarkable. No aortic aneurysm. There is atherosclerotic calcification of the abdominal aorta. BOWEL: Status post total colectomy. Right lower quadrant ostomy . There is parastomal herniation of small bowel. There is dilatation of some loops of small bowel in the anterior upper abdomen. There is no generalized pattern to suggest mechanical bowel obstruction, however. 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 There is a small amount of free air within the mesenteric fat of the left abdomen best demonstrated on series 3, image 86 through 92. There is also a small amount of air seen outside the bowel lumen in the right lower quadrant of the abdomen. Findings consistent with bowel perforation or pneumatosis intestinalis with rupture. APPENDIX: Colectomy PERITONEUM: Unremarkable. No free fluid. No free air. LYMPH NODES: Unremarkable. No enlarged lymph nodes. BLADDER: Poorly distended. The bladder wall is mildly thickened. This is most likely due to underdistention. However, there is mild perivesical stranding in the possibility of cystitis should also be considered. There is a small diverticulum in the midline posterior bladder base. Several potential small diverticula are appreciated also in the region of the trigone. REPRODUCTIVE: Status post prostatectomy. BONES: No acute fracture. OTHER FINDINGS: None. IMPRESSION: Total colectomy. Right lower quadrant ostomy with stable parastomal hernia, without obstruction, though there are some dilated small bowel loops in the anterior upper abdomen. There is evidence of pneumatosis intestinalis as well as a small amount of intraperitoneal air. This is concerning for bowel perforation though this may also be seen with pneumatosis intestinalis without kayla bowel perforation. Consider surgical consultation. Possible cystitis. Correlate with urinalysis. Additional nonemergent findings as above. The above findings were discussed by telephone with JOHN Hunter at 5:10 p.m. on 12/02/2018.
[2018-12-02] MEDS ORDERED: metroNIDAZOLE IV 500 mg/100 ml 500 MG/100 ML BAG IVPB STA (17:18)
[2018-12-02] MEDS ORDERED: Ciprofloxacin 400mg/200ml D5W 400 MG/200 ML BAG IVPB STA (17:19)
[2018-12-02 17:49] LABS: VENOUS BLOOD GAS BASE EXCESS 2.5 mmol/L (0.0-2.0); VENOUS BLOOD GAS PO2 27 mm/Hg (30-55); VENOUS BLOOD PH 7.35 (7.32-7.43)
[2018-12-02 17:52] LABS: INR 1.11; PARTIAL THROMBOPLASTIN TIME 32.4 Seconds (26.9-38.3); PROTHROMBIN TIME 12.3 SECONDS (9.4-12.5)
[2018-12-02] MEDS ORDERED: Lactated Ringer's 1,000 ML IV SCH (18:00)
--- NOTE | 2018-12-02 18:33 | CARD ---
APPROVED REPORT Date of service: 12/02/2018 EKG Measurement Heart [id number] <Conclusion> Normal sinus rhythm Normal ECG
--- NOTE | 2018-12-02 20:37 | CP.PCM.CON ---
History of Present Illness - History of Present Illness History of Present Illness: GENERAL SURGERY CONSULT FOR DR. 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 The pain began last night. Pt states that he has intermittent abdominal pain but this pain was sharper. Pt reports flatus and liquid stool into ileostomy bag (more watery than normal). Pt denies nausea or vomiting. Pt states that currently his pain has mostly subsided (no pain medications were given in ED, only pepcid). Pt states that he has an EGD scheduled for January with Dr. Aragon. Pt has known parastomal hernia for which he has seen Dr. Torres in the office and is considering elective repair. 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 Torres Allergies: none Social history: former smoker, quit 35-40 years ago, social etoh, denies illicit drug use Review of Systems - Review of Systems All systems: reviewed and no additional remarkable complaints except (as per HPI) Past Patient History - Infectious Disease Hx of Infectious Diseases: None - Tetanus Immunizations Tetanus Immunization: Unknown - Past Medical History & Family History Past Medical History?: No - Past Social History Smoking Status: Former Smoker - CARDIAC Hx Pacemaker: No - PULMONARY Hx Respiratory Disorders: No Hx Asthma: No Hx Bronchitis: Yes Hx Chronic Obstructive Pulmonary Disease (COPD): Yes Hx Emphysema: No Hx Pneumonia: No Hx Respiratory Aspiration: No Hx Respiratory Tract Infection: No Hx Sleep Apnea: No Hx Tuberculosis: No - NEUROLOGICAL Hx Paralysis: No - HEENT Hx HEENT Problems: No Hx Blind: No Hx Cataracts: Yes Hx Deafness: No Hx Difficulty Chewing: No Hx Epistaxis: No Hx Glaucoma: No Hx Macular Degeneration: Yes - RENAL Hx Chronic Kidney Disease: No Hx Dialysis: No Hx Kidney Stones: No Hx Neurogenic Bladder: No Hx Pyelonephritis: No Hx Renal (Kidney) Cancer: No Hx Renal Failure: No - ENDOCRINE/METABOLIC Hx Endocrine Disorders: No Hx Adrenal Cancer: No Hx Diabetes Insipidus: No Hx Diabetes Mellitus Type 1: No Hx Diabetes Mellitus Type 2: No Hx Hyperthyroidism: No Hx Hypothyroidism: No Hx Systemic Lupus Erythematosus: No - HEMATOLOGICAL/ONCOLOGICAL Hx Blood Transfusions: No Hx Blood Transfusion Reaction: No Hx Cancer: Yes (prostate,colon) - INTEGUMENTARY Hx Dermatological Problems: No Hx Basil Cell: No Hx Eczema: No Hx Melanoma: No Hx Psoriasis: No Hx Squamous Cell: No - MUSCULOSKELETAL/RHEUMATOLOGICAL Hx Musculoskeletal Disorders: No - GASTROINTESTINAL Hx Colostomy: Yes - GENITOURINARY/GYNECOLOGICAL Hx Prostate Problems: Yes - PSYCHIATRIC Hx Emotional Abuse: No Hx Physical Abuse: No Hx Substance Use: No - SURGICAL HISTORY Other/Comment: coloctomy, prostate removal - ANESTHESIA Hx Anesthesia: Yes Hx Anesthesia Reactions: Yes (NAUSEA/VOMITING) Hx Malignant Hyperthermia: No Meds Allergies/Adverse Reactions: Allergies Allergy/AdvReac Type Severity Reaction Status Date / Time No Known Allergies Allergy Verified 12/02/18 13:17 - Medications Medications: Current Medications Lactated Ringer's (Lactated Ringer's) 1,000 mls @ 125 mls/hr IV .Q8H VIVIAN Physical Exam - Constitutional Appears: Non-toxic, No Acute Distress - Head Exam Head Exam: ATRAUMATIC, NORMAL INSPECTION - Eye Exam Eye Exam: EOMI, Normal appearance - Respiratory Exam Respiratory Exam: NORMAL BREATHING PATTERN. absent: Respiratory Distress - Cardiovascular Exam Cardiovascular Exam: +S1, +S2. absent: Tachycardia - GI/Abdominal Exam GI & Abdominal Exam: Soft, Tenderness (mild tenderness to abdominal midline near umbilicus). absent: Distended, Firm, Guarding, Rebound, Rigid Additional comments: laparoscopic scars well healed open inguinal hernia scar Ileostomy with liquid stool - Neurological Exam Neurological exam: Alert, CN II-XII Intact, Oriented x3 - Psychiatric Exam Psychiatric exam: Normal Affect, Normal Mood - Skin Skin Exam: Dry, Normal Color, Warm Results - Vital Signs Recent Vital Signs: Last Vital Signs Temp 97.7 F 12/02/18 13:14 Pulse 82 12/02/18 13:14 Resp 18 12/02/18 13:14 BP 131/78 12/02/18 13:14 Pulse Ox 100 12/02/18 13:14 - Labs Result Diagrams: 12/02/18 13:55 12/02/18 13:55 Labs: Laboratory Results - last 24 hr 12/02/18 12/02/18 12/02/18 13:55 13:55 16:50 WBC 4.9 RBC 3.93 Hgb 12.9 L Hct 37.8 L MCV 96.2 MCH 32.8 MCHC 34.1 RDW 13.2 Plt Count 145 MPV 8.6 Neut % (Auto) 60.9 Lymph % (Auto) 24.9 [place] % (Auto) 9.9 H Eos % (Auto) 4.1 Baso % (Auto) 0.2 Lymph # (Auto) 1.2 [place] # (Auto) 0.5 Eos # (Auto) 0.2 Baso # (Auto) 0.01 Absolute Neuts (auto) 2.95 PT INR APTT pO2 VBG pH VBG pCO2 VBG HCO3 VBG Total CO2 VBG O2 Sat (Calc) VBG Base Excess VBG Potassium Glucose Lactate FiO2 Sodium 139 Potassium 4.3 Chloride 103 Carbon Dioxide 28 Anion Gap 12 BUN 18 Creatinine 1.0 Est GFR ( Amer) > 60 Est GFR (Non-Af Amer) > 60 Random Glucose 89 Calcium 9.1 Magnesium 1.7 Total Bilirubin 0.4 AST 41 ALT 38 Alkaline Phosphatase 63 Troponin I < 0.01 Total Protein 6.9 Albumin 4.0 Globulin 2.9 Albumin/Globulin Ratio 1.4 Lipase 50 Venous Blood Potassium Urine Color Yellow Urine Appearance Clear Urine pH 6.5 Ur Specific [place] <= 1.005 Urine Protein Negative Urine Glucose (UA) Negative Urine Ketones Negative Urine Blood Negative Urine Nitrate Negative Urine Bilirubin Negative Urine Urobilinogen 0.2 Ur Leukocyte Esterase Negative 12/02/18 12/02/18 17:37 17:37 WBC RBC Hgb Hct MCV MCH MCHC RDW Plt Count MPV Neut % (Auto) Lymph % (Auto) [place] % (Auto) Eos % (Auto) Baso % (Auto) Lymph # (Auto) [place] # (Auto) Eos # (Auto) Baso # (Auto) Absolute Neuts (auto) PT 12.3 INR 1.11 APTT 32.4 pO2 27 L VBG pH 7.35 VBG pCO2 53.0 VBG HCO3 29.3 H VBG Total CO2 30.9 H VBG O2 Sat (Calc) 48.9 VBG Base Excess 2.5 H VBG Potassium 3.8 Glucose 91 Lactate 0.9 FiO2 21.0 Sodium 138.0 Potassium Chloride 101.0 Carbon Dioxide Anion Gap BUN Creatinine Est GFR ( Amer) Est GFR (Non-Af Amer) Random Glucose Calcium Magnesium Total Bilirubin AST ALT Alkaline Phosphatase Troponin I Total Protein Albumin Globulin Albumin/Globulin Ratio Lipase Venous Blood Potassium 3.8 Urine Color Urine Appearance Urine pH Ur Specific [place] Urine Protein Urine Glucose (UA) Urine Ketones Urine Blood Urine Nitrate Urine Bilirubin Urine Urobilinogen Ur Leukocyte Esterase Assessment & Plan - Assessment and Plan (Free Text) Assessment: 77yo M with PMHx of Ulcerative Colitis s/p proctocolectomy with end ileostomy, prostate cancer s/p prostatectomy & radiation, COPD who presented with abdominal pain CT: total colectomy, RLQ ostomy w/ stable parastomal hernia, without obstruction, though there are some dilated small bowel loops in the anterior upper abdomen. There is pneumatosis intestinalis as well as small amount of intraperitoneal air in the mesenteric fat. - Afebrile, no tachycardia, normotensive - No leukocytosis, lactate 0.9 - CT findings concerning but pt has normal vitals, labs, and benign physical exam. Pt has not required any pain medication. - No acute surgical intervention - Will observe overnight with serial abdominal exams - Will repeat labs 6 hours after initial labs - Discussed plan with Dr. Bettina Rosales PGY-4
[2018-12-02 22:53] LABS: BLOOD UREA NITROGEN 14 mg/dL (7-21); CALCIUM 8.9 mg/dL (8.4-10.5); GFR NON-AFRICAN AMERICAN > 60
[2018-12-02] MEDS: metroNIDAZOLE IV 500 mg/100 ml 500 MG/100 ML BAG IVPB SCH (22:55)
[2018-12-02] MEDS ORDERED: Albuterol-Ipratrop 3 mg / 0.5 (3 ml) UD IH PRN (22:59)
[2018-12-02 23:26] LABS: BASO # 0.01 K/mm3 (0.0-2.0); BASO % 0.2 % (0.0-3.0); EOS # 0.2 (0.0-0.7); EOS % 5.8 % (1.5-5.0); HEMOGLOBIN 13.3 g/dL (14.0-18.0); LYMPH # 1.2 (1.2-3.4); LYMPH % 28.1 % (22.0-35.0); MEAN CELL VOLUME 95.6 fl (80.0-105.0); MEAN CORPUSCULAR HEMOGLOBIN 32.8 pg (25.0-35.0); MEAN CORPUSCULAR HGB CONC 34.4 g/dl (31.0-37.0); MEAN PLATELET VOLUME 8.4 fl (7.0-11.0); MONO # 0.5 (0.1-0.6); MONO % 10.8 % (1.0-6.0); RBC 4.05 10^6/uL (3.5-6.1); WHITE BLOOD COUNT 4.2 10^3/uL (4.5-11.0)
--- NOTE | 2018-12-03 00:13 | CP.PCM.HP ---
<Jim Gomez - Last Filed: 12/03/18 00:37> History of Present Illness - History of Present Illness History of Present Illness: Jim Gomez DO PGY-1 H&P Note for Dr. Mary George: worsening sherlyn-umbilical pain x2 days 77 year old male with PMHx of Ulcerative Colitis s/p total colon and rectal resection 2 years ago, prostate cancer s/p total resection and radiation, COPD, Macular degeneration, abdominal hernias, and recurrent nasal polyps who presents to the ED for worsening abdominal pain. The patient states that he has been having a cramping abdominal pain for approximately 4 months after he was diagnosed with two abdominal hernias. He says that he was able to tolerate the pain and only ever came to the hospital once before 3 months ago for pain. He says he was given Pepcid which relieved his symptoms. However, last night he describes having a sharp, cramping pain that was worse in intensity than before. The pain is localized to the L. umbilical region and does not radiate. He took Pepto Bismol, which he said helped relieve his pain. Moving and lying on his side worsen the pain. He also says he gets an uncomfortable feeling after eating. Patient reports having feelings of fatigue, headache and diarrhea in his colostomy bag. Patient denies any fevers, chills, sweats, chest pain, palpitations, nausea, vomiting, constipation, urinary incontinency/urgency, numbness/tingling, or any other complaints. 12 points ROS reviewed and otherwise negative PMHx: UC s/p total colorectal resection, Prostate cancer s/p resection and radiation, COPD, Macular degeneration, abdominal hernias, recurrent nasal polyps PSHx: Total colon and rectal resection (2 years ago; [facility]), Prostate resection (1 year ago), Nasal Polyp removal x3, Right knee orthoscopic surgery, R. Rotator cuff surgery (1.5 years ago) Allergies: NKDA Family History: Mother (Lung Cancer age 40); Father (HTN); Daughter (Tongue cancer); Daughter (Nasal polyps, "GI issues") Medications: Budesonide, Brovana, Vitamins, Nasal rinse PMD: Dr. Cooper GI: Dr. Aragon Urologist: Dr. Camacho ([place], [place]) Pharmacy: [facility] Present on Admission - Present on Admission Any Indicators Present on Admission: No Past Patient History - Infectious Disease Hx of Infectious Diseases: None - Tetanus Immunizations Tetanus Immunization: Unknown - Past Medical History & Family History Past Medical History?: No - Past Social History Smoking Status: Former Smoker - CARDIAC Hx Cardiac Disorders: No - PULMONARY Hx Bronchitis: Yes Hx Chronic Obstructive Pulmonary Disease (COPD): Yes - NEUROLOGICAL Hx Neurological Disorder: No - HEENT Hx HEENT Problems: Yes Hx Cataracts: Yes (B/L EYE c Rt eye repair) Hx Macular Degeneration: Yes - RENAL Hx Chronic Kidney Disease: No - ENDOCRINE/METABOLIC Hx Endocrine Disorders: No - HEMATOLOGICAL/ONCOLOGICAL Hx Cancer: Yes (prostate,colon) Other/Comment: prostate CA c radiation; last dose 3weeks ago. - INTEGUMENTARY Hx Dermatological Problems: No - MUSCULOSKELETAL/RHEUMATOLOGICAL Hx Musculoskeletal Disorders: Yes Hx Arthritis: Yes Hx Falls: No Other/Comment: Rt shoulder rotater cuff repair - GASTROINTESTINAL Hx Gastrointestinal Disorders: Yes Hx Ileostomy: Yes Hx Ulcer: Yes (ulcerative colitis) Other/Comment: proctocolectomy - GENITOURINARY/GYNECOLOGICAL Hx Prostate Problems: Yes (prostatectomy) - PSYCHIATRIC Hx Emotional Abuse: No Hx Physical Abuse: No Hx Substance Use: No - SURGICAL HISTORY Hx Surgeries: Yes Hx Cholecystectomy: Yes - ANESTHESIA Hx Anesthesia: Yes Hx Anesthesia Reactions: Yes (NAUSEA/VOMITING) Hx Malignant Hyperthermia: No Meds Allergies/Adverse Reactions: Allergies Allergy/AdvReac Type Severity Reaction Status Date / Time No Known Allergies Allergy Verified 12/02/18 13:17 Physical Exam - Additional Findings Additional findings: - Constitutional Appears: Non-toxic, No Acute Distress - Head Exam Head Exam: ATRAUMATIC, NORMAL INSPECTION - Eye Exam Eye Exam: EOMI, Normal appearance - Respiratory Exam Respiratory Exam: NORMAL BREATHING PATTERN. absent: Respiratory Distress - Cardiovascular Exam Cardiovascular Exam: +S1, +S2. absent: Tachycardia - GI/Abdominal Exam GI & Abdominal Exam: Soft, Tenderness (mild tenderness to abdominal midline near umbilicus). absent: Distended, Firm, Guarding, Rebound, Rigid Additional comments: laparoscopic scars well healed open inguinal hernia scar Ileostomy with liquid stool - Neurological Exam Neurological exam: Alert, CN II-XII Intact, Oriented x3 - Psychiatric Exam Psychiatric exam: Normal Affect, Normal Mood - Skin Skin Exam: Dry, Normal Color, Warm Results - Vital Signs Recent Vital Signs: Last Vital Signs Temp 97.7 F 12/02/18 13:14 Pulse 77 12/02/18 22:57 Resp 20 12/02/18 22:57 BP 131/80 12/02/18 21:00 Pulse Ox 98 12/02/18 21:00 - Labs Result Diagrams: 12/02/18 23:14 12/02/18 22:31 Labs: Laboratory Results - last 24 hr 12/02/18 12/02/18 12/02/18 13:55 13:55 16:50 WBC 4.9 RBC 3.93 Hgb 12.9 L Hct 37.8 L MCV 96.2 MCH 32.8 MCHC 34.1 RDW 13.2 Plt Count 145 MPV 8.6 Neut % (Auto) 60.9 Lymph % (Auto) 24.9 [place] % (Auto) 9.9 H Eos % (Auto) 4.1 Baso % (Auto) 0.2 Lymph # (Auto) 1.2 [place] # (Auto) 0.5 Eos # (Auto) 0.2 Baso # (Auto) 0.01 Absolute Neuts (auto) 2.95 PT INR APTT pO2 VBG pH VBG pCO2 VBG HCO3 VBG Total CO2 VBG O2 Sat (Calc) VBG Base Excess VBG Potassium Glucose Lactate FiO2 Sodium 139 Potassium 4.3 Chloride 103 Carbon Dioxide 28 Anion Gap 12 BUN 18 Creatinine 1.0 Est GFR ( Amer) > 60 Est GFR (Non-Af Amer) > 60 Random Glucose 89 Lactic Acid Calcium 9.1 Magnesium 1.7 Total Bilirubin 0.4 AST 41 ALT 38 Alkaline Phosphatase 63 Troponin I < 0.01 Total Protein 6.9 Albumin 4.0 Globulin 2.9 Albumin/Globulin Ratio 1.4 Lipase 50 Venous Blood Potassium Urine Color Yellow Urine Appearance Clear Urine pH 6.5 Ur Specific [place] <= 1.005 Urine Protein Negative Urine Glucose (UA) Negative Urine Ketones Negative Urine Blood Negative Urine Nitrate Negative Urine Bilirubin Negative Urine Urobilinogen 0.2 Ur Leukocyte Esterase Negative 12/02/18 12/02/18 12/02/18 17:37 17:37 22:31 WBC RBC Hgb Hct MCV MCH MCHC RDW Plt Count MPV Neut % (Auto) Lymph % (Auto) [place] % (Auto) Eos % (Auto) Baso % (Auto) Lymph # (Auto) [place] # (Auto) Eos # (Auto) Baso # (Auto) Absolute Neuts (auto) PT 12.3 INR 1.11 APTT 32.4 pO2 27 L VBG pH 7.35 VBG pCO2 53.0 VBG HCO3 29.3 H VBG Total CO2 30.9 H VBG O2 Sat (Calc) 48.9 VBG Base Excess 2.5 H VBG Potassium 3.8 Glucose 91 Lactate 0.9 FiO2 21.0 Sodium 138.0 138 Potassium 3.7 Chloride 101.0 103 Carbon Dioxide 27 Anion Gap 12 BUN 14 Creatinine 0.9 Est GFR ( Amer) > 60 Est GFR (Non-Af Amer) > 60 Random Glucose 110 Lactic Acid Calcium 8.9 Magnesium Total Bilirubin AST ALT Alkaline Phosphatase Troponin I Total Protein Albumin Globulin Albumin/Globulin Ratio Lipase Venous Blood Potassium 3.8 Urine Color Urine Appearance Urine pH Ur Specific [place] Urine Protein Urine Glucose (UA) Urine Ketones Urine Blood Urine Nitrate Urine Bilirubin Urine Urobilinogen Ur Leukocyte Esterase 12/02/18 12/02/18 23:14 23:14 WBC 4.2 L RBC 4.05 Hgb 13.3 L Hct 38.7 L MCV 95.6 MCH 32.8 MCHC 34.4 RDW 13.0 Plt Count 142 MPV 8.4 Neut % (Auto) 55.1 Lymph % (Auto) 28.1 [place] % (Auto) 10.8 H Eos % (Auto) 5.8 H Baso % (Auto) 0.2 Lymph # (Auto) 1.2 [place] # (Auto) 0.5 Eos # (Auto) 0.2 Baso # (Auto) 0.01 Absolute Neuts (auto) 2.30 PT INR APTT pO2 VBG pH VBG pCO2 VBG HCO3 VBG Total CO2 VBG O2 Sat (Calc) VBG Base Excess VBG Potassium Glucose Lactate FiO2 Sodium Potassium Chloride Carbon Dioxide Anion Gap BUN Creatinine Est GFR ( Amer) Est GFR (Non-Af Amer) Random Glucose Lactic Acid 1.0 Calcium Magnesium Total Bilirubin AST ALT Alkaline Phosphatase Troponin I Total Protein Albumin Globulin Albumin/Globulin Ratio Lipase Venous Blood Potassium Urine Color Urine Appearance Urine pH Ur Specific [place] Urine Protein Urine Glucose (UA) Urine Ketones Urine Blood Urine Nitrate Urine Bilirubin Urine Urobilinogen Ur Leukocyte Esterase Assessment & Plan - Assessment and Plan (Free Text) Assessment: 77 year old male with PMHx of Ulcerative Colitis s/p proctocolectomy with end ileostomy, COPD admitted for sherlyn-umbilical abdominal pain x2 days. CT A/P shows pneumatosis intestinalis, small amount of intraperitoneal air Plan: Abdominal pain: -patient hemodynamically stable, afebrile, no leukocytosis, lactate 0.9 -CT A/P w IV/PO contrast:Total colectomy, RLQ ostomy with stable parastomal hernia (without obstruction); Dilated small bowel loops in upper abdomen; Evidence of pneumatosis intestinalis as well as small amount of intraperitoneal air (Concern for bowel perforation); Possible cystitis -conservative management as per surgery -started antibiotics Rocephin, Flagyl -Zofran PRN -IVF LR @125cc/hr -Toradol PRN -repeat labs in am -surgery on board, Dr. Pederson History of COPD: -resume Home Meds: Brovana, Budesonide -duoneb prn/ravi, pulmicort -O2 NC prn PPX: -DVT: SCDs -GI: protonix -NPO Case reviewed and plan discussed with Dr Mary Gomez, DO PGY1 <Alisia Hernandez - Last Filed: 12/04/18 01:29> Results - Vital Signs Recent Vital Signs: Last Vital Signs Temp 97.8 F 12/03/18 16:34 Pulse 83 12/03/18 16:34 Resp 20 12/03/18 16:34 BP 135/72 12/03/18 16:34 Pulse Ox 98 12/03/18 16:34 - Labs Result Diagrams: 12/03/18 06:20 12/03/18 06:20 Labs: Laboratory Results - last 24 hr 12/03/18 12/03/18 06:20 06:20 WBC 3.8 L RBC 3.91 Hgb 12.6 L Hct 37.8 L MCV 96.7 MCH 32.2 MCHC 33.3 RDW 13.2 Plt Count 133 MPV 8.6 Neut % (Auto) 59.3 Lymph % (Auto) 21.4 L [place] % (Auto) 14.8 H Eos % (Auto) 4.2 Baso % (Auto) 0.3 Lymph # (Auto) 0.8 L [place] # (Auto) 0.6 Eos # (Auto) 0.2 Baso # (Auto) 0.01 Absolute Neuts (auto) 2.25 Sodium 141 Potassium 4.2 Chloride 105 Carbon Dioxide 29 Anion Gap 12 BUN 14 Creatinine 1.0 Est GFR ( Amer) > 60 Est GFR (Non-Af Amer) > 60 Random Glucose 83 Calcium 8.9 Attending/Attestation - Attestation I have personally seen and examined this patient.: Yes I have fully participated in the care of the patient.: Yes I have reviewed all pertinent clinical information: Yes Notes (Text): 12/04/18 01:28 Patient was seen when he was in . Medical record was reviewed. Agree with history, physical examination, assessment and plan.
[2018-12-03] MEDS: Budesonide 0.5 mg/2 ml Inhal Susp UD IH SCH ×3 (03:03→21:45)
[2018-12-03] MEDS: Arformoterol 15 mcg/2 ml Inh Sol IH SCH ×3 (03:03→21:45)
[2018-12-03] MEDS: Albuterol-Ipratrop 3 mg / 0.5 (3 ml) UD IH SCH ×3 (03:03→21:45)
[2018-12-03] MEDS: metroNIDAZOLE IV 500 mg/100 ml 500 MG/100 ML BAG IVPB SCH ×3 (05:35→22:01)
[2018-12-03] MEDS: Pantoprazole 40 mg EC Tab PO SCH (05:35)
[2018-12-03 06:52] LABS: BASO # 0.01 K/mm3 (0.0-2.0); BASO % 0.3 % (0.0-3.0); EOS # 0.2 (0.0-0.7); EOS % 4.2 % (1.5-5.0); HEMOGLOBIN 12.6 g/dL (14.0-18.0); LYMPH # 0.8 (1.2-3.4); LYMPH % 21.4 % (22.0-35.0); MEAN CELL VOLUME 96.7 fl (80.0-105.0); MEAN CORPUSCULAR HEMOGLOBIN 32.2 pg (25.0-35.0); MEAN CORPUSCULAR HGB CONC 33.3 g/dl (31.0-37.0); MEAN PLATELET VOLUME 8.6 fl (7.0-11.0); MONO # 0.6 (0.1-0.6); MONO % 14.8 % (1.0-6.0); RBC 3.91 10^6/uL (3.5-6.1); RED CELL DISTRIBUTION WIDTH 13.2 % (11.5-14.5); WHITE BLOOD COUNT 3.8 10^3/uL (4.5-11.0)
[2018-12-03 07:04] LABS: BLOOD UREA NITROGEN 14 mg/dL (7-21); CALCIUM 8.9 mg/dL (8.4-10.5); GFR NON-AFRICAN AMERICAN > 60
--- NOTE | 2018-12-03 07:26 | CP.PCM.PN ---
Subjective - Date & Time of Evaluation Date of Evaluation: 12/03/18 Time of Evaluation: 07:23 - Subjective Subjective: Surgery Progress Note for Dr. Dunbar 77M seen and evaluated at bedside this morning. Patient resting comfortably in bed. No acute events overnight. No complaints this morning. Patient has stool and air in ostomy. Denies abdominal pain. States he is hungry with mild headache. Patient ambulating without difficulty. Denies f/c, n/v/d, SOB, CP, or urinary symptoms. Objective - Vital Signs/Intake and Output Vital Signs (last 24 hours): Temp Pulse Resp BP Pulse Ox 98.1 F 83 20 102/62 99 12/03/18 06:00 12/03/18 06:00 12/03/18 06:00 12/03/18 06:00 12/03/18 06:00 - Medications Medications: Current Medications Acetaminophen (Tylenol 325mg Tab) 650 mg PO Q6H PRN PRN Reason: Headache Last Admin: 12/02/18 22:50 Dose: 650 mg Albuterol/Ipratropium (Duoneb 3 Mg/0.5 Mg (3 Ml) Ud) 3 ml IH Q2H PRN PRN Reason: Shortness of Breath Albuterol/Ipratropium (Duoneb 3 Mg/0.5 Mg (3 Ml) Ud) 3 ml IH [id number] [facility] Last Admin: 12/03/18 03:03 Dose: 3 ml Arformoterol Tartrate (Brovana) 15 mcg IH [id number] [facility] Last Admin: 12/03/18 03:03 Dose: 15 mcg Budesonide (Pulmicort Respules) 0.5 mg IH [id number] [facility] Last Admin: 12/03/18 03:03 Dose: 0.5 mg Lactated Ringer's (Lactated Ringer's) 1,000 mls @ 125 mls/hr IV .Q8H VIVIAN Last Admin: 12/02/18 22:25 Dose: 125 mls/hr Metronidazole (Flagyl) 500 mg in 100 mls @ 100 mls/hr IVPB Q8 VIVIAN; Protocol Last Admin: 12/03/18 05:35 Dose: 100 mls/hr Ceftriaxone Sodium (Rocephin 1 Gram Ivpb) 1 gm in 100 mls @ 100 mls/hr IVPB DAILY [facility]; Protocol Ketorolac Tromethamine (Toradol) 15 mg IVP Q6 PRN PRN Reason: Pain, moderate (4-7) Ondansetron HCl (Zofran Inj) 4 mg IVP Q6 PRN PRN Reason: Nausea/Vomiting Pantoprazole Sodium (Protonix Ec Tab) 40 mg PO 0600 [facility] Last Admin: 12/03/18 05:35 Dose: 40 mg - Labs Labs: 12/03/18 06:20 12/03/18 06:20 PT 12.3 SECONDS (9.4-12.5) 12/02/18 17:37 INR 1.11 12/02/18 17:37 APTT 32.4 Seconds (26.9-38.3) 12/02/18 17:37 - Constitutional Appears: Well, Non-toxic, No Acute Distress - Head Exam Head Exam: ATRAUMATIC, NORMAL INSPECTION, NORMOCEPHALIC - Eye Exam Eye Exam: EOMI Pupil Exam: PERRL - ENT Exam ENT Exam: Mucous Membranes Dry - Respiratory Exam Respiratory Exam: NORMAL BREATHING PATTERN. absent: Wheezes, Respiratory Distress - Cardiovascular Exam Cardiovascular Exam: REGULAR RHYTHM, +S1, +S2 - GI/Abdominal Exam GI & Abdominal Exam: Soft, Hernia, Normal Bowel Sounds. absent: Distended, Guarding, Rigid, Tenderness, Rebound Additional comments: right lower quadrant ileostomy - pink, patent, and productive palpable parastomal hernia - Extremities Exam Extremities Exam: Normal Inspection. absent: Calf Tenderness - Neurological Exam Neurological Exam: Alert, Awake, Oriented x3 - Psychiatric Exam Psychiatric exam: Normal Affect, Normal Mood - Skin Skin Exam: Dry, Intact, Normal Color, Warm Assessment and Plan - Assessment and Plan (Free Text) Assessment: 77M w/ abdominal pain, improving Patient had CTAP findings concerning for pneumatosis intestinalis Plan: Literature review - patients with COPD can present with pneumatosis intestinalis Pain has improved and patient has appetite - diet advanced to clears ADAT Monitor diet tolerance Continue to monitor abdominal pain Further recommendations pending attending evaluation Darrell Morrell PGY1
[2018-12-03] MEDS: cefTRIAXone 1 gm 1 GM/100 ML BAG IVPB SCH (09:21)
[2018-12-03] MEDS ORDERED: cefTRIAXone 2 GM IN NS 2 GM/100 ML BAG IVPB SCH (10:00)
[2018-12-03] MEDS ORDERED: Lactated Ringer's 1,000 ML IV SCH (12:36)
--- NOTE | 2018-12-03 13:26 | CP.PCM.PCO ---
Physician Communication Note - Physician Communication Note Physician Communication Note: advancing diet as per surgery
[2018-12-04] MEDS: Albuterol-Ipratrop 3 mg / 0.5 (3 ml) UD IH SCH ×3 (01:26→13:20)
[2018-12-04] MEDS: metroNIDAZOLE IV 500 mg/100 ml 500 MG/100 ML BAG IVPB SCH (05:54)
[2018-12-04] MEDS: Pantoprazole 40 mg EC Tab PO SCH (05:54)
[2018-12-04 06:29] LABS: HEMOGLOBIN 12.1 g/dL (14.0-18.0); MEAN CELL VOLUME 96.7 fl (80.0-105.0); MEAN CORPUSCULAR HEMOGLOBIN 32.8 pg (25.0-35.0); MEAN CORPUSCULAR HGB CONC 33.9 g/dl (31.0-37.0); MEAN PLATELET VOLUME 8.4 fl (7.0-11.0); RBC 3.69 10^6/uL (3.5-6.1)
[2018-12-04 06:35] LABS: ALB/GLOB RATIO 1.3 (1.1-1.8); ALBUMIN 3.6 g/dL (3.0-4.8); ALT/SGPT 34 U/L (7-56); AST/SGOT 37 U/L (17-59); BLOOD UREA NITROGEN 16 mg/dL (7-21); CALCIUM 8.9 mg/dL (8.4-10.5); GFR NON-AFRICAN AMERICAN > 60
[2018-12-04 07:06] VITALS: BP 110/57; PULSE 92; RESP 18; TEMP 98; O2SAT 97
--- NOTE | 2018-12-04 07:46 | CP.PCM.PN ---
Subjective - Date & Time of Evaluation Date of Evaluation: 12/04/18 Time of Evaluation: 07:43 - Subjective Subjective: Surgery Progress Note for Dr. Dunbar 77M seen and evaluated at bedside this morning. No acute events overnight. No complaints this morning. Tolerating diet. Denies any abdominal pain. Patinet having output to ostomy. He has not ambulated, but encouraged to do so. Denies f/c, n/v/d, SOB, CP, or urinary symptoms. Objective - Vital Signs/Intake and Output Vital Signs (last 24 hours): Temp Pulse Resp BP Pulse Ox 98.0 F 92 H 18 110/57 L 97 12/04/18 06:00 12/04/18 06:00 12/04/18 06:00 12/04/18 06:00 12/04/18 06:00 Intake and Output: 12/04/18 12/04/18 06:59 18:59 Intake Total 240 Balance 240 - Medications Medications: Current Medications Acetaminophen (Tylenol 325mg Tab) 650 mg PO Q6H PRN PRN Reason: Headache Last Admin: 12/02/18 22:50 Dose: 650 mg Albuterol/Ipratropium (Duoneb 3 Mg/0.5 Mg (3 Ml) Ud) 3 ml IH Q2H PRN PRN Reason: Shortness of Breath Albuterol/Ipratropium (Duoneb 3 Mg/0.5 Mg (3 Ml) Ud) 3 ml IH [id number] [facility] Last Admin: 12/04/18 01:26 Dose: 3 ml Arformoterol Tartrate (Brovana) 15 mcg IH [id number] [facility] Last Admin: 12/03/18 21:45 Dose: 15 mcg Budesonide (Pulmicort Respules) 0.5 mg IH [id number] [facility] Last Admin: 12/03/18 21:45 Dose: 0.5 mg Metronidazole (Flagyl) 500 mg in 100 mls @ 100 mls/hr IVPB Q8 [facility]; Protocol Last Admin: 12/04/18 05:54 Dose: 100 mls/hr Ceftriaxone Sodium (Rocephin 1 Gram Ivpb) 1 gm in 100 mls @ 100 mls/hr IVPB DAILY [facility]; Protocol Last Admin: 12/03/18 09:21 Dose: 100 mls/hr Ketorolac Tromethamine (Toradol) 15 mg IVP Q6 PRN PRN Reason: Pain, moderate (4-7) Ondansetron HCl (Zofran Inj) 4 mg IVP Q6 PRN PRN Reason: Nausea/Vomiting Pantoprazole Sodium (Protonix Ec Tab) 40 mg PO 0600 VIVIAN Last Admin: 12/04/18 05:54 Dose: 40 mg - Labs Labs: 12/04/18 06:00 12/04/18 06:00 PT 12.3 SECONDS (9.4-12.5) 12/02/18 17:37 INR 1.11 12/02/18 17:37 APTT 32.4 Seconds (26.9-38.3) 12/02/18 17:37 - Constitutional Appears: Well, Non-toxic, No Acute Distress - Head Exam Head Exam: ATRAUMATIC, NORMAL INSPECTION, NORMOCEPHALIC - Eye Exam Eye Exam: EOMI Pupil Exam: PERRL - ENT Exam ENT Exam: Mucous Membranes Moist - Respiratory Exam Respiratory Exam: NORMAL BREATHING PATTERN. absent: Wheezes, Respiratory Distress - Cardiovascular Exam Cardiovascular Exam: REGULAR RHYTHM - GI/Abdominal Exam GI & Abdominal Exam: Soft, Normal Bowel Sounds. absent: Tenderness Additional comments: ostomy pink, patent, productive - Neurological Exam Neurological Exam: Alert, Awake, Oriented x3 - Psychiatric Exam Psychiatric exam: Normal Affect, Normal Mood - Skin Skin Exam: Dry, Intact, Normal Color, Warm Assessment and Plan - Assessment and Plan (Free Text) Assessment: 77M w/ abdominal pain, now resolved Plan: Advanced to regular diet Monitor diet tolerance Discontinued IVF Encourage ambulation Cleared for discharge from a surgical standpoint Darrell Morrell PGY1
[2018-12-04] MEDS: Arformoterol 15 mcg/2 ml Inh Sol IH SCH (08:10)
[2018-12-04] MEDS: Budesonide 0.5 mg/2 ml Inhal Susp UD IH SCH (08:11)
[2018-12-04] MEDS: cefTRIAXone 1 gm 1 GM/100 ML BAG IVPB SCH (09:18)
--- NOTE | 2018-12-04 11:30 | CP.PCM.DIS ---
<Malina Teresa - Last Filed: 12/04/18 13:23> Provider - Provider Date of Admission: 12/02/18 20:50 Attending physician: Arnulfo Diaz MD Primary care physician: Dr. Cooper Consults: 12/02/18 19:19 General Surgery Consult Stat Comment: pneumotosis intestinalis, intrabdominal free air Consulting Provider: Byron Dunbar Consulting Physician: Byron Dunbar Reason for Consult: pneumotosis intestinalis, intrabdominal free air Time Spent in preparation of Discharge (in minutes): 45 Hospital Course - Lab Results Lab Results: Most Recent Lab Values WBC 4.0 10^3/uL (4.5-11.0) L 12/04/18 06:00 RBC 3.69 10^6/uL (3.5-6.1) 12/04/18 06:00 Hgb 12.1 g/dL (14.0-18.0) L 12/04/18 06:00 Hct 35.7 % (42.0-52.0) L 12/04/18 06:00 MCV 96.7 fl (80.0-105.0) 12/04/18 06:00 MCH 32.8 pg (25.0-35.0) 12/04/18 06:00 MCHC 33.9 g/dl (31.0-37.0) 12/04/18 06:00 RDW 13.0 % (11.5-14.5) 12/04/18 06:00 Plt Count 130 10^3/uL (120.0-450.0) 12/04/18 06:00 MPV 8.4 fl (7.0-11.0) 12/04/18 06:00 Neut % (Auto) 59.3 % (50.0-68.0) 12/03/18 06:20 Lymph % (Auto) 21.4 % (22.0-35.0) L 12/03/18 06:20 [place] % (Auto) 14.8 % (1.0-6.0) H 12/03/18 06:20 Eos % (Auto) 4.2 % (1.5-5.0) 12/03/18 06:20 Baso % (Auto) 0.3 % (0.0-3.0) 12/03/18 06:20 Lymph # (Auto) 0.8 (1.2-3.4) L 12/03/18 06:20 [place] # (Auto) 0.6 (0.1-0.6) 12/03/18 06:20 Eos # (Auto) 0.2 (0.0-0.7) 12/03/18 06:20 Baso # (Auto) 0.01 K/mm3 (0.0-2.0) 12/03/18 06:20 Absolute Neuts (auto) 2.25 (1.4-6.5) 12/03/18 06:20 PT 12.3 SECONDS (9.4-12.5) 12/02/18 17:37 INR 1.11 12/02/18 17:37 APTT 32.4 Seconds (26.9-38.3) 12/02/18 17:37 pO2 27 mm/Hg (30-55) L 12/02/18 17:37 VBG pH 7.35 (7.32-7.43) 12/02/18 17:37 VBG pCO2 53.0 (40-60) 12/02/18 17:37 VBG HCO3 29.3 mmol/l (21-28) H 12/02/18 17:37 VBG Total CO2 30.9 mmol.L (22-28) H 12/02/18 17:37 VBG O2 Sat (Calc) 48.9 % (40-65) 12/02/18 17:37 VBG Base Excess 2.5 mmol/L (0.0-2.0) H 12/02/18 17:37 VBG Potassium 3.8 mmol/L (3.6-5.2) 12/02/18 17:37 Sodium 138.0 mmol/L (132-148) 12/02/18 17:37 Chloride 101.0 mmol/L (98-107) 12/02/18 17:37 Glucose 91 mg/dl (75-110) 12/02/18 17:37 Lactate 0.9 mmol/L (0.7-2.1) 12/02/18 17:37 FiO2 21.0 % 12/02/18 17:37 Sodium 142 mmol/L (132-148) 12/04/18 06:00 Potassium 4.0 mmol/L (3.6-5.0) 12/04/18 06:00 Chloride 105 mmol/L (98-107) 12/04/18 06:00 Carbon Dioxide 29 mmol/L (21-33) 12/04/18 06:00 Anion Gap 12 (10-20) 12/04/18 06:00 BUN 16 mg/dL (7-21) 12/04/18 06:00 Creatinine 1.0 mg/dl (0.8-1.5) 12/04/18 06:00 Est GFR ( Amer) > 60 12/04/18 06:00 Est GFR (Non-Af Amer) > 60 12/04/18 06:00 Random Glucose 85 mg/dL (70-110) 12/04/18 06:00 Lactic Acid 1.0 mmol/L (0.7-2.1) 12/02/18 23:14 Calcium 8.9 mg/dL (8.4-10.5) 12/04/18 06:00 Magnesium 1.7 mg/dL (1.7-2.2) 12/02/18 13:55 Total Bilirubin 0.3 mg/dL (0.2-1.3) 12/04/18 06:00 AST 37 U/L (17-59) 12/04/18 06:00 ALT 34 U/L (7-56) 12/04/18 06:00 Alkaline Phosphatase 61 U/L (38-126) 12/04/18 06:00 Troponin I < 0.01 ng/mL 12/02/18 13:55 Total Protein 6.4 g/dL (5.8-8.3) 12/04/18 06:00 Albumin 3.6 g/dL (3.0-4.8) 12/04/18 06:00 Globulin 2.8 gm/dL 12/04/18 06:00 Albumin/Globulin Ratio 1.3 (1.1-1.8) 12/04/18 06:00 Lipase 50 U/L (23-300) 12/02/18 13:55 Venous Blood Potassium 3.8 mmol/L (3.6-5.2) 12/02/18 17:37 Urine Color Yellow (YELLOW) 12/02/18 16:50 Urine Appearance Clear (CLEAR) 12/02/18 16:50 Urine pH 6.5 (4.7-8.0) 12/02/18 16:50 Ur Specific Odell <= 1.005 (1.005-1.035) 12/02/18 16:50 Urine Protein Negative mg/dL (<30 mg/dL) 12/02/18 16:50 Urine Glucose (UA) Negative mg/dL (NEGATIVE) 12/02/18 16:50 Urine Ketones Negative mg/dL (NEGATIVE) 12/02/18 16:50 Urine Blood Negative (NEGATIVE) 12/02/18 16:50 Urine Nitrate Negative (NEGATIVE) 12/02/18 16:50 Urine Bilirubin Negative (NEGATIVE) 12/02/18 16:50 Urine Urobilinogen 0.2 E.U./dL (<1 E.U./dL) 12/02/18 16:50 Ur Leukocyte Esterase Negative Anne-Marie/uL (NEGATIVE) 12/02/18 16:50 - Hospital Course Hospital Course: Upon Admission 77yo male PMHx Ulcerative Colitis s/p proctocolectomy with end ileostomy 2 years ago, prostate cancer s/p prostatectomy and radiation, COPD, Macular degeneration, abdominal hernias, and recurrent nasal polyps who presents to the ED for worsening abdominal pain. Patient reported the pain had been present for the past 4 months and he was diagnosed with abdominal hernias. The night prior to admission however the pain worsened and OTC peptobismol did not alleviate the pain. He reported flatus and liquid stool into ileostomy bag (more watery than normal) but denied any fever, chills, nausea, vomiting, chest pain, palpitations, sob, cough, urinary complaints, b/l LE pain/swelling. Patient endorsed he had an EGD scheduled for January with Dr. Aragon and has seen Dr. Torres in the office for elective repair of parastomal hernia. Hospital Course Patient was admitted for further management. CT abd/pelvis revealed total colectomy, RLQ ostomy w/ stable parastomal hernia, without obstruction, though there are some dilated small bowel loops in the anterior upper abdomen; Pneumatosis intestinalis as well as small amount of intraperitoneal air in the mesenteric fat. Surgery Dr. Dunbar was consulted. As patient had unremarkable blood work, vitals, and a benign physical exam, there was to be no surgical intervention. Patient was observed with serial abdominal exams. Patient's diet was advanced as tolerated and both abdominal pain and appetite improved to baseline. Surgery stated patient was ok for discharge. On day of discharge patient was deemed medically optimized to be discharged home. Upon Discharge "- Follow up with your primary doctor within 3-5 days - Follow up with the surgeon of your choice within 3-5 days - Follow up with Dr. Aragon as scheduled - Resume all home medications as prescribed - Return to ED if symptoms return" Discharge instructions discussed with patient who voiced understanding and agreement with plan. Discharge Exam - Head Exam Head Exam: ATRAUMATIC, NORMAL INSPECTION, NORMOCEPHALIC - Eye Exam Eye Exam: EOMI, Normal appearance, PERRL. absent: Conjunctival injection, Scleral icterus - ENT Exam ENT Exam: Mucous Membranes Moist - Neck Exam Neck exam: Full Rom, Normal Inspection - Respiratory Exam Respiratory Exam: Clear to PA & Lateral, NORMAL BREATHING PATTERN. absent: Accessory Muscle Use, Rales, Rhonchi, Wheezes - Cardiovascular Exam Cardiovascular Exam: REGULAR RHYTHM, +S1, +S2 - GI/Abdominal Exam GI & Abdominal Exam: Normal Bowel Sounds Additional comments: ostomy pink, patent, productive - Extremities Exam Extremities exam: normal capillary refill, normal inspection, pedal pulses present - Neurological Exam Neurological exam: Alert, CN II-XII Intact, Oriented x3 - Psychiatric Exam Psychiatric exam: Normal Affect, Normal Mood - Skin Skin Exam: Dry, Intact, Normal Color, Warm Discharge Plan - Follow Up Plan Condition: IMPROVED Disposition: HOME/ ROUTINE Instructions: Acute Abdominal Pain (DC), Acute Abdominal Pain (GEN) Additional Instructions: - Follow up with your primary doctor within 3-5 days - Follow up with the surgeon of your choice within 3-5 days - Follow up with Dr. Aragon as scheduled - Resume all home medications as prescribed - Return to ED if symptoms return <Arnulfo Diaz - Last Filed: 12/04/18 15:31> Provider - Provider Date of Admission: 12/02/18 20:50 Attending physician: Arnulfo Diaz MD Consults: 12/02/18 19:19 General Surgery Consult Stat Comment: pneumotosis intestinalis, intrabdominal free air Consulting Provider: Byron Dunbar Consulting Physician: Byron Dunbar Reason for Consult: pneumotosis intestinalis, intrabdominal free air Hospital Course - Lab Results Lab Results: Most Recent Lab Values WBC 4.0 10^3/uL (4.5-11.0) L 12/04/18 06:00 RBC 3.69 10^6/uL (3.5-6.1) 12/04/18 06:00 Hgb 12.1 g/dL (14.0-18.0) L 12/04/18 06:00 Hct 35.7 % (42.0-52.0) L 12/04/18 06:00 MCV 96.7 fl (80.0-105.0) 12/04/18 06:00 MCH 32.8 pg (25.0-35.0) 12/04/18 06:00 MCHC 33.9 g/dl (31.0-37.0) 12/04/18 06:00 RDW 13.0 % (11.5-14.5) 12/04/18 06:00 Plt Count 130 10^3/uL (120.0-450.0) 12/04/18 06:00 MPV 8.4 fl (7.0-11.0) 12/04/18 06:00 Neut % (Auto) 59.3 % (50.0-68.0) 12/03/18 06:20 Lymph % (Auto) 21.4 % (22.0-35.0) L 12/03/18 06:20 [place] % (Auto) 14.8 % (1.0-6.0) H 12/03/18 06:20 Eos % (Auto) 4.2 % (1.5-5.0) 12/03/18 06:20 Baso % (Auto) 0.3 % (0.0-3.0) 12/03/18 06:20 Lymph # (Auto) 0.8 (1.2-3.4) L 12/03/18 06:20 [place] # (Auto) 0.6 (0.1-0.6) 12/03/18 06:20 Eos # (Auto) 0.2 (0.0-0.7) 12/03/18 06:20 Baso # (Auto) 0.01 K/mm3 (0.0-2.0) 12/03/18 06:20 Absolute Neuts (auto) 2.25 (1.4-6.5) 12/03/18 06:20 PT 12.3 SECONDS (9.4-12.5) 12/02/18 17:37 INR 1.11 12/02/18 17:37 APTT 32.4 Seconds (26.9-38.3) 12/02/18 17:37 pO2 27 mm/Hg (30-55) L 12/02/18 17:37 VBG pH 7.35 (7.32-7.43) 12/02/18 17:37 VBG pCO2 53.0 (40-60) 12/02/18 17:37 VBG HCO3 29.3 mmol/l (21-28) H 12/02/18 17:37 VBG Total CO2 30.9 mmol.L (22-28) H 12/02/18 17:37 VBG O2 Sat (Calc) 48.9 % (40-65) 12/02/18 17:37 VBG Base Excess 2.5 mmol/L (0.0-2.0) H 12/02/18 17:37 VBG Potassium 3.8 mmol/L (3.6-5.2) 12/02/18 17:37 Sodium 138.0 mmol/L (132-148) 12/02/18 17:37 Chloride 101.0 mmol/L (98-107) 12/02/18 17:37 Glucose 91 mg/dl (75-110) 12/02/18 17:37 Lactate 0.9 mmol/L (0.7-2.1) 12/02/18 17:37 FiO2 21.0 % 12/02/18 17:37 Sodium 142 mmol/L (132-148) 12/04/18 06:00 Potassium 4.0 mmol/L (3.6-5.0) 12/04/18 06:00 Chloride 105 mmol/L (98-107) 12/04/18 06:00 Carbon Dioxide 29 mmol/L (21-33) 12/04/18 06:00 Anion Gap 12 (10-20) 12/04/18 06:00 BUN 16 mg/dL (7-21) 12/04/18 06:00 Creatinine 1.0 mg/dl (0.8-1.5) 12/04/18 06:00 Est GFR ( Amer) > 60 12/04/18 06:00 Est GFR (Non-Af Amer) > 60 12/04/18 06:00 Random Glucose 85 mg/dL (70-110) 12/04/18 06:00 Lactic Acid 1.0 mmol/L (0.7-2.1) 12/02/18 23:14 Calcium 8.9 mg/dL (8.4-10.5) 12/04/18 06:00 Magnesium 1.7 mg/dL (1.7-2.2) 12/02/18 13:55 Total Bilirubin 0.3 mg/dL (0.2-1.3) 12/04/18 06:00 AST 37 U/L (17-59) 12/04/18 06:00 ALT 34 U/L (7-56) 12/04/18 06:00 Alkaline Phosphatase 61 U/L (38-126) 12/04/18 06:00 Troponin I < 0.01 ng/mL 12/02/18 13:55 Total Protein 6.4 g/dL (5.8-8.3) 12/04/18 06:00 Albumin 3.6 g/dL (3.0-4.8) 12/04/18 06:00 Globulin 2.8 gm/dL 12/04/18 06:00 Albumin/Globulin Ratio 1.3 (1.1-1.8) 12/04/18 06:00 Lipase 50 U/L (23-300) 12/02/18 13:55 Venous Blood Potassium 3.8 mmol/L (3.6-5.2) 12/02/18 17:37 Urine Color Yellow (YELLOW) 12/02/18 16:50 Urine Appearance Clear (CLEAR) 12/02/18 16:50 Urine pH 6.5 (4.7-8.0) 12/02/18 16:50 Ur Specific Odell <= 1.005 (1.005-1.035) 12/02/18 16:50 Urine Protein Negative mg/dL (<30 mg/dL) 12/02/18 16:50 Urine Glucose (UA) Negative mg/dL (NEGATIVE) 12/02/18 16:50 Urine Ketones Negative mg/dL (NEGATIVE) 12/02/18 16:50 Urine Blood Negative (NEGATIVE) 12/02/18 16:50 Urine Nitrate Negative (NEGATIVE) 12/02/18 16:50 Urine Bilirubin Negative (NEGATIVE) 12/02/18 16:50 Urine Urobilinogen 0.2 E.U./dL (<1 E.U./dL) 12/02/18 16:50 Ur Leukocyte Esterase Negative Anne-Marie/uL (NEGATIVE) 12/02/18 16:50 Attending/Attestation - Attestation I have personally seen and examined this patient.: Yes I have fully participated in the care of the patient.: Yes I have reviewed all pertinent clinical information, including history, physical exam and plan: Yes Notes (Text): 12/04/18 15:26 77 year old male with past medical history of ulcerative colitis s/p proctocolectomy with end ileostomy, COPD, and prostate cancer s/p prostatectomy and radiation who presented with complaint of abdominal pain. He had CT abd/pelvis which showed pneumatosis intestinalis with small amount of intraperitoneal air in the mesenteric fat. However clinically patient was comfortable with mild tenderness initially. Serial abdominal exams were done. Patient's abdominal pain improved and he is tolerating diet. He was seen by surgery and cleared for discharge. Patient is discharged home to follow up with pmd. Follow up with GI and surgery. Arnulfo Diaz MD Hospitalist.
== END 2018-12-04 13:23 | disposition home or self-care (01) | DRG 394 ==
LOC: ED 13:05 → ERH 20:50 → 3RNO 22:28
PROVIDERS: ADMIT Internal Medicine; ATTEND Internal Medicine
DX: K63.89 Other specified diseases of intestine (principal); K51.90 Ulcerative colitis, unspecified, without complications; K43.5 Parastomal hernia without obstruction or gangrene; J44.9 Chronic obstructive pulmonary disease, unspecified; H35.30 Unspecified macular degeneration; J33.9 Nasal polyp, unspecified; Z85.46 Personal history of malignant neoplasm of prostate; Z87.891 Personal history of nicotine dependence; Z93.2 Ileostomy status

== ENCOUNTER 2018-12-10 06:53 | Day surgery (SDC) | payer MEDICARE ==
[2018-12-10] MEDS ORDERED: Propofol 10 mg/ml Inj (20 ML) ONE (08:17)
[2018-12-10] MEDS ORDERED: Sodium Chloride 0.9% 1,000 ML IV SCH (08:45)
[2018-12-10 09:11] VITALS: BP 118/66
[2018-12-10 09:21] VITALS: PULSE 70; RESP 16; TEMP 97.9; O2SAT 100
[2018-12-10 09:40] VITALS: BMI 24.4
== END 2018-12-10 10:12 | disposition home or self-care (01) ==
LOC: ENDO 06:53
PROVIDERS: ATTEND Internal Medicine Gastroenterology
DX: K29.70 Gastritis, unspecified, without bleeding (principal); R10.13 Epigastric pain; K31.7 Polyp of stomach and duodenum
CPT/HCPCS: 43239; 88305; 88342; J2001; J2704; J7030; J7040